=== PATIENT | female | born 1945 | race Caucasian/White ===

== ENCOUNTER → 2017-09-08 12:16 | Outpatient (CLI) | payer MEDICARE, SELFPAY ==
--- NOTE | 2017-09-08 12:19 | HPBI_ITS ---
MAMMOGRAPHY - BILATERAL SCREENING REASON FOR EXAM: Female, 72 years old. Routine annual screening examination. PERTINENT HISTORY: Non-contributory. Prior left breast biopsies. TECHNIQUE: Digital bilateral breast freeman (3D mammographic acquisition) in the CC and MLO projections. 2-D mediolateral oblique (MLO) and craniocaudad (CC) views of both breasts were obtained. CAD: Full Field Digital Mammography with Computer Added Detection was performed. COMPARISON: Comparison is made with prior study dated February 24, 2016 and February 01, 2014. FINDINGS: Breast Composition: There are scattered areas of fibroglandular density. There are no dominant masses or suspicious calcifications. Stable prominent venous structures in the left breast. Stable benign-appearing bilateral axillary lymph nodes. No other significant abnormalities are identified. There has been no significant change since the prior study. HPBI/SCREENING MAMM (CAD), BILAT IMPRESSION: Stable bilateral screening mammogram. Yearly follow-up mammogram recommended. (A) ASSESSMENT CATEGORY: BIRADS Category 2: Benign. A letter regarding these results will be sent to the patient by the facility within 30 days. Approximately 10% of breast cancers are not detected by mammography. A normal mammogram should not delay biopsy of a clinically suspicious abnormality. [id number] Electronically Signed: Job Hernández MD at 10:56 EST Tel [phone], Service support ,
== END ==
PROVIDERS: Family Provider Family Medicine; PCP Family Medicine; Visit Provider Family Medicine
DX: Z12.31 Encounter for screening mammogram for malignant neoplasm of breast (principal)
CPT/HCPCS: 77063; 77067

== ENCOUNTER 2017-10-28 11:01 | Emergency (ER) | payer MEDICARE, SELFPAY ==
[2017-10-28 11:03] VITALS: BP 152/70; PULSE 86; RESP 20; TEMP 36.6; O2SAT 100; BMI 34.7
--- NOTE | 2017-10-28 11:29 | ED.VISSUMM ---
- ER Visit Summary Date of Service: 10/28/17 Chief Complaint: Abdominal pain History of Present Illness: The patient is a 72 F with abdominal pain. Symptoms started about a week ago. Pain is intermittent and knifelike. She saw her PCP who referred her to the emergency department today. She has a history of appendectomy and hysterectomy. Never had a colonoscopy. No fevers. No change in bowel movements. She did have some nausea and vomiting. She thought this was secondary to severe pain. She is on Eliquis and aspirin and has a history of DVT and PE. Physical Examination: Afebrile and vital signs unremarkable. Abdomen is tender in the left lower quadrant. No guarding or rebound. No distention. Heart and lungs unremarkable. Back nontender. Skin appears normal. Test Results: We will check labs, urinalysis, and CT. Emergency Department Course and Treatment: Patient declined pain medicine. Will treat with fluids while awaiting results. CBB normal. CMP unremarkable. Lipase normal. Urinalysis unremarkable. CT showed fatty liver and signs of diverticulitis without abscess or perforation. Patient received Leedey, Bernadettero, Flagmegha here. I believe she is appropriate for outpatient care. Treatment Plan: As above Disposition: Discharged Impression: 1. Diverticulitis This note was generated with [employer] dictation software. It may contain incorrect words, spelling, and punctuation that were not noted in review of the chart prior to signing ED Disposition - Plan for ED Patient: Chief Complaint: Abd Pain Referrals: Sin Frost MD [Primary Care Provider] -
--- NOTE | 2017-10-28 11:32 | CT_ITS ---
STUDY: CT ABDOMEN AND PELVIS WITH CONTRAST REASON FOR EXAM: Female, 72 years old. 4 day history of left lower quadrant pain. RADIATION DOSAGE (If Supplied By Facility): CTDIvol = ( 18.05 ) mGy, DLP = ( 1037.75 ) mGycm TECHNIQUE: Transaxial images were obtained from the dome of the diaphragm to the symphysis pubis without oral contrast. 100 ml of Isovue 300 contrast was administered. Sagittal and coronal images were reconstructed. Individualized dose optimization techniques were used for this CT. COMPARISON: None. FINDINGS: Mild degree of increased markings at the lung bases suggestive of either linear atelectasis and/or mild degree of linear scarring at the bases. The visualized portions of the heart are within normal limits. There is decreased attenuation of the liver consistent with steatosis. Normal gallbladder and extrahepatic biliary system. Normal spleen. Normal pancreas. Normal bilateral adrenal glands. There is a 1.9 cm x 2 cm cyst in the mid lateral aspect of the right kidney. Fullness of the right renal pelvis and right ureter although no obstructive uropathy is seen at this time. There is a 3.1 cm x 3.4 cm cyst in the upper lateral portion of the left kidney. Normal visualized stomach. Normal small intestine. There is diverticulosis, with thickening of the colon wall, and pericolonic inflammation changes consistent with acute diverticulitis. No abnormal abscess or fluid collection is seen. There is non-visualization of the appendix. There is atherosclerotic atherosclerotic calcification of the abdominal aorta, without a demonstrated aneurysm. Normal inferior vena cava. There is borderline retroperitoneal lymphadenopathy with enlarged nodes no greater than 10mm in the short axis diameter. Normal urinary bladder. There is absence of the uterus consistent with a prior hysterectomy. There is a small umbilical hernia containing fat. Small bilateral benign-appearing inguinal lymph nodes. There are mild degenerative changes of the visualized lumbar spine. CT/Abdomen/Pelvis W IV Cont ONLY IMPRESSION: Fatty infiltration of the liver. Findings incomplete or noncomplicated acute sigmoid diverticulitis. Electronically Signed: Job Hernández MD at 13:22 EDT Tel [phone], Service support ,
[2017-10-28] MEDS: 0.9% Normal Saline 1,000 ML 1000 ML IV (12:09)
[2017-10-28 12:18] LABS: Absolute Lymphocyte Count 1.29 X10^3/ul (0.83-4.51); Absolute Neutrophil Count 5.9 X10^3/uL (2.0-7.7); Basophil# 0.02 X10^3/uL; Basophil% 0.3 % (0-1); Hematocrit 38.9 % (37-47); Hemoglobin 12.8 g/dl (12.0-15.0); Lymphocyte # 1.29 X10^3/ul (4.0); Lymphocyte % 16.4 % (19-41); Mean Corp Hgb Conc 32.9 g/gl (32-36); Mean Corpuscular Hgb 28.8 pg (27.0-32.0); Mean Corpuscular Volume 87.4 fL (81-99); Mean Platelet Vol. 10.8 fl (6.2-12.0); Monocyte% 8.9 % (0-10); Neutrophil # 5.85 X10^3/uL (2.7-7.7); Neutrophil % 74.3 % (47-70); Platelet Count 163 K/mm3 (150-450); Red Blood Count 4.45 M/mm3 (4.2-5.4); White Blood Count 7.9 K/mm3 (4.4-11.0)
[2017-10-28 12:23] LABS: POSITIVE COUNT NO; POSITIVE DIFFERENTIAL NO; POSITIVE MORPHOLOGY NO
[2017-10-28 12:27] LABS: ALB/GLOB Ratio 1.2 RATIO (0.9-2.4); AST(SGOT) 12 U/L (15-37); Alanine Aminotransfer ALT/SGPT 19 U/L (13-56); Albumin, Serum 3.6 g/dL (3.2-5.0); Alkaline Phosphatase 87 U/L (45-117); Anion Gap 6 (5-15); BUN 11 mg/dL (7-18); BUN/Creat Ratio 16.8 RATIO (10-20); Calcium,Total 8.2 mg/dL (8.5-10.1); Chloride 107 mmol/L (98-107); Creatinine, Serum 0.66 mg/dL (0.55-1.02); EST Glomerular Filtration Rate 95 mL/min (>60); Est Glom Filt Rate - Afr Amer 115 mL/min (>60); Globulin 3.1 g/dL (2.2-4.2); Glucose 115 mg/dL (74-106); Lipase 74 U/L (73-393); Potassium 3.7 mmol/L (3.5-5.1); Protein, Total 6.7 g/dL (6.4-8.2); Sodium Level 139 mmol/L (136-145)
[2017-10-28 13:07] LABS: Bacteria 0 SEEN /hpf (None Seen); Mucous, Urine 0 SEEN /hpf (<or=2+); Red Blood Cells-Urine 0 SEEN /hpf (0-5); White Blood Cells 0 SEEN /hpf (0-5)
[2017-10-28 13:13] LABS: Color, Urine Yellow (Yellow); Glucose, Dipstick Normal (Normal); Ketone-Dipstick Negative (Negative); Leukocyte Esterase-Dipstick Negative /ul (Negative); Nitrite-Dipstick Negative (Negative); Occult Blood-Urine Negative /ul (Negative); Protein-Dipstick Negative (Negative); Specific Gravity, Urine 1.005 (1.002-1.030); Urine Bilirubin Dipstick Negative (Negative); Urine Clarity Clear (Clear); Urine Urobilinogen Normal (Normal)
[2017-10-28 13:22] LABS: Squamous Epithelial Cells - UA 0-5 SEEN /hpf (5-10)
[2017-10-28 13:54] VITALS: BP 129/115; PULSE 81; RESP 18; O2SAT 92
[2017-10-28] MEDS: HYDROcodone Bitartrate/Apap 5/325 Tablet PO (14:30)
[2017-10-28 15:41] VITALS: BP 119/75; PULSE 81; RESP 16; O2SAT 91
--- NOTE | 2017-10-28 15:44 | ED.DEP ---
ED Disposition - Plan for ED Patient: Chief Complaint: Abd Pain Instructions: ED Diverticulitis Prescriptions: Hydrocodone Bitart/Apap 5-325 [Prince 5MG-325MG] 1 tab PO Q6H PRN PRN 3 Days #12 tab PRN Reason: Pain Metronidazole [Flagyl] 500 mg PO Q8H #30 tab Ciprofloxacin [Cipro] 500 mg PO BID #20 tab Referrals: Sin Frost MD [Primary Care Provider] -
== END 2017-10-28 16:07 | disposition home or self-care (01) ==
PROVIDERS: Emergency Provider Emergency Medicine; Family Provider Family Medicine; PCP Family Medicine
DX: K57.32 Diverticulitis of large intestine without perforation or abscess without bleeding (principal); K76.0 Fatty (change of) liver, not elsewhere classified; K21.9 Gastro-esophageal reflux disease without esophagitis; I10 Essential (primary) hypertension; E03.9 Hypothyroidism, unspecified; Z86.718 Personal history of other venous thrombosis and embolism; Z86.711 Personal history of pulmonary embolism; Z90.89 Acquired absence of other organs; Z90.710 Acquired absence of both cervix and uterus; Z87.891 Personal history of nicotine dependence; Z79.01 Long term (current) use of anticoagulants; Z79.82 Long term (current) use of aspirin; Z79.899 Other long term (current) drug therapy
CPT/HCPCS: 74177; 80053; 81001; 83690; 85025; 96361; 96365; 96367; 99284; J7030; Q9967; A4216; J0744

== ENCOUNTER 2017-12-28 06:56 | Day surgery (SDC) | payer MEDICARE, SELFPAY ==
[2017-12-28] VITALS (7 sets, daily range): BP systolic 86–125; BP diastolic 60–98; PULSE 60–79; RESP 16; TEMP 36.2–36.5; O2SAT 94–100; BMI 34.1
--- NOTE | 2017-12-28 11:05 | PCM.OPRPT ---
Report of Operation Date of Procedure: 12/28/17 Pre-Operative Diagnosis: Screening for colon cancer, history of diverticulitis Post-Operative Diagnosis: Mild sigmoid diverticulosis Surgery/Procedure Performed:: Colonoscopy Type of Anesthesia:: MAC Anesthesiologist: Uche Mo Specimen's removed: None Estimated Blood Loss (mL): None Description of Procedure: Procedure: Colonoscopy After reviewing the risks benefits, the patient was deemed in satisfactory condition to undergo procedure. After obtaining informed consent, the scope was passed under direct visualization. Throughout the procedure, the patient's blood pressure pulse and position saturations were monitored continuously anesthesia. The colonoscope was introduced through the anus and advanced to the cecum, identified by the appendiceal orifice, IC valve and transillumination. The colonoscopy was performed without difficulty. The patient tolerated procedure well. Quality of bowel prep was good. Findings: The perianal and digital rectal exam were normal. Mild sigmoid diverticulosis was noted. Otherwise the colon (entire examined portion) appeared normal. Retroflexed view of the distal rectum and anal verge was normal and showed no anal or rectal abnormalities Impression: 1. Mild sigmoid diverticulosis 2. The distal rectal and anal verge were normal on retroflexed view. Recommendations: high-fiber diet Repeat colonoscopy in 10 years for screening purposes depending on overall health at that time. - Complications none
== END 2017-12-28 09:34 | disposition home or self-care (01) ==
LOC: EN 06:57 → AC 06:58
PROVIDERS: Family Provider Family Medicine; PCP Family Medicine; Visit Provider Surgery
PROC: 0DJD8ZZ Inspection of Lower Intestinal Tract, Via Natural or Artificial Opening Endoscopic (ICD-10-PCS; CPT 45378; principal; 2017-12-28 07:55)
DX: Z12.11 Encounter for screening for malignant neoplasm of colon (principal); K57.30 Diverticulosis of large intestine without perforation or abscess without bleeding; E55.9 Vitamin D deficiency, unspecified; K21.9 Gastro-esophageal reflux disease without esophagitis; J44.9 Chronic obstructive pulmonary disease, unspecified; I10 Essential (primary) hypertension; E03.9 Hypothyroidism, unspecified; Z87.891 Personal history of nicotine dependence; Z86.711 Personal history of pulmonary embolism; Z87.19 Personal history of other diseases of the digestive system; Z86.718 Personal history of other venous thrombosis and embolism
CPT/HCPCS: G0121; J7120

== ENCOUNTER → 2018-03-14 16:29 | Outpatient (CLI) | payer MEDICARE, SELFPAY ==
--- NOTE | 2018-03-14 | LES_PTH ---
PATIENT: ARIEL ALLEN LOC: [facility] U#:[id number] AGE/SX: 79/F ROOM: RE03/14/[address]: Dr. Melissa aMya MD : 1945 BED: DIS: SPEC #: [id number] RECD: 03/15/18 13:18 STATUS: LEONARD ADRIANE #: [id number] CHARAN: 03/14/18 00:[address]: Melissa Maya DEPT: SURGICAL PATHOLOGY RECD BY: Nic Hill ENTERED: 03/15/18 13:18 SP TYPE: Lesion OTHR DR: Dr. Sin Frost MD Tissues: A - Skin of chest B - Skin of chest C - Skin of chest D - Skin of back, NOS Procedures: Surgery Specimen Level IV HEADER OPERATION: Punch biopsy chest lesion; punch biopsy upper back skin lesion left PRE-OP DIAGNOSIS: Skin lesion on chest; skin lesion upper back left TISSUE SUBMITTED: A - Skin lesion chest ? 9 cm from sternal notch at 6 o?clock, 5 mm punch, B ? 6 cm at 4 o?clock from sternal notch, 4 mm punch, C ? 5 cm at 7 o?clock from sternal notch, 4 mm punch, D - Upper back skin lesion left medial MICROSCOPIC DIAGNOSIS A. Skin lesion of chest at 6 o?clock, punch biopsy: Actinic keratosis with focal verrucal features with associated moderate dysplasia, inflamed, completely excised. B. Skin lesion of sternal notch at 4 o?clock, punch biopsy: Consistent with actinic keratosis. C. Skin lesion of sternal notch at 7 o?clock, punch biopsy: Actinic keratosis and solar elastosis. D. Skin lesion of upper medial back, punch biopsy: Actinic keratosis with moderate squamous atypia. AM:jones 03/16/18 COMMENT D. Dysplasia extends to one peripheral margin of excision. Complete excision of lesion is recommended for definitive calcification. Case has been reviewed in consultation with Dr. Salazar who concurs with the above diagnosis. IDC:SJ MICROSCOPIC DESCRIPTION Slides are reviewed. GROSS DESCRIPTION A - Received in fixative is one container labeled with the patient's name and designated skin lesion from chest 6 o'clock. The specimen consists of a 5 mm punch biopsy with a maximal length of 0.5 cm. The specimen is inked and totally submitted in one cassette for postfixation sectioning. B - Received in fixative is one container labeled with the patient's name and designated chest lesion 4 o'clock. The specimen consists of an irregular fragment of hauser-yellow soft tissue measuring 0.5 x 0.2 x 0.2 cm. The specimen is totally submitted in one cassette. C - Received in fixative is one container labeled with the patient's name and designated chest lesion 7 o'clock. The specimen consists of an irregular fragment of light hauser-yellow soft tissue measuring 0.3 x 0.2 cm. The specimen is totally submitted in one cassette. D - Received in fixative is one container labeled with the patient's name and designated left upper back punch biopsy. The specimen consists of a 5 mm punch biopsy with a maximal length of 0.6 cm. The specimen is inked and totally submitted in one cassette for postfixation sectioning. / AM:jones 03/15/18 TC:? CPT: 25411 x4
== END ==
PROVIDERS: Family Provider Family Medicine; PCP Family Medicine; Visit Provider Surgery
DX: L98.9 Disorder of the skin and subcutaneous tissue, unspecified (principal)
CPT/HCPCS: 88305

== ENCOUNTER 2018-03-24 06:25 | Day surgery (SDC) | payer MEDICARE, SELFPAY ==
--- NOTE | 2018-03-24 | LES_PTH ---
PATIENT: ARIEL ALLEN LOC: [facility] U#:[id number] AGE/SX: 72/F ROOM: RE03/24/[address]: Dr. Melissa Maya MD : 1945 BED: DIS: 03/24/2018 SPEC #: [id number] RECD: 03/24/18 11:52 STATUS: LEONARD ADRIANE #: [id number] CHARAN: 03/24/18 00:[address]: Melissa Maya DEPT: SURGICAL PATHOLOGY RECD BY: Nic Hill ENTERED: 03/24/18 11:52 SP TYPE: Lesion OTHR DR: Dr. Sin Frost MD Tissues: Skin of back, NOS Procedures: Surgery Specimen Level IV HEADER OPERATION: Excision lesion left upper back PRE-OP DIAGNOSIS: Lesion left upper back with atypia TISSUE SUBMITTED: Left upper back lesion with atypia, long suture ? lateral, short suture - superior MICROSCOPIC DIAGNOSIS Left upper back lesion with atypia, excisional biopsy: Actinic keratosis with moderate atypia. See comment. SJ:rg 03/27/18 COMMENT The peripheral margin is free of moderate atypia. A few cluster of atypical squamous cells are noted in the superficial dermis, favor pseudoinvasion, secondary to previous procedure. Please make reference to previous specimen ([id number]) skin lesion of chest at 6 o?clock, punch biopsy with diagnosis of actinic keratosis with focal verrucal features with associated moderate dysplasia, inflamed, skin lesion of sternal notch at 4 o?clock, punch biopsy with diagnosis of consistent with actinic keratosis and skin lesion of sternal notch at 7 o?clock, punch biopsy with diagnosis of actinic keratosis and solar elastosis and skin lesion of left upper medial back, punch biopsy with diagnosis of actinic keratosis and moderate squamous atypia. Case has been reviewed in consultation with Dr. Harris who concurs with the above diagnosis. IDC:AM MICROSCOPIC DESCRIPTION Slides are reviewed. GROSS DESCRIPTION Received in fixative is one container labeled with the patient's name and designated lesion left upper back with atypia, long suture - lateral, short suture - superior. The specimen consists of a hauser-white skin ellipse measuring 5 x 2.7 cm and up to 0.5 cm in thickness. The specimen is oriented as long suture - lateral, short suture ? superior. The specimen is inked as follows: superior margin ? black, inferior margin ? blue, medial tip ? green, lateral tip ? yellow. The specimen is serially sectioned and submitted entirely in five cassettes. / SJ:jones 03/24/18 TC:5 CPT: 84633
[2018-03-24 07:17] VITALS: BP 112/70; PULSE 73; RESP 16; TEMP 36.5; O2SAT 99; BMI 34.3
[2018-03-24] MEDS: Cefazolin 2 GM in 0.9% Normal Saline 100 ML IV (07:50)
[2018-03-24] MEDS: Bupivacaine Mpf 0.5% 30 ML VIAL (08:08)
--- NOTE | 2018-03-24 08:34 | PCM.OPRPT ---
Report of Operation Date of Procedure: 03/24/18 Pre-Operative Diagnosis: Left upper medial back actinic keratosis moderate squamous atypia Post-Operative Diagnosis: Same Surgery/Procedure Performed:: Excision of left upper medial back skin lesion with atypia plant operations coordinator: Leodan Kraft Type of Anesthesia:: Local MAC Anesthesiologist: Smith Aquino Special Medications: Ancef 2 g IV ?1 Specimen's removed: Left upper back skin lesion with atypia Estimated Blood Loss (mL): <10 cc Fluids Replaced: 400 cc Description of Procedure: Patient was brought to the operating room placed in right lateral decubitus position. Prior to surgery patient's procedure, positioning, special equipment was verified. A margin of about 6 mm was marked around the 2 x 0.5 cm lesion on her left upper medial back. This area is prepped draped in usual sterile fashion with Betadine due to her chlorhexidine allergy. Incision was made with 15 blade scalpel. The lesion was removed and oriented for pathology. The edges were undermined to allow for a tension-free incision. Incision was closed with 3-0 Vicryl subdermal interrupted sutures. In the middle the placement of 2 vertical mattress 3-0 nylon sutures. Steri-Strips and OpSite were placed. Patient tolerated procedure well. She was taken to the postanesthesia care unit in stable condition. - Complications None
[2018-03-24 08:41] VITALS: BP 107/76; BP 112/70; PULSE 77; RESP 18; TEMP 36.3; O2SAT 94
--- NOTE | 2018-03-24 08:41 | PCM.DC.GS ---
Discharge Diet: No Restrictions Call your doctor if your incision/area has: Continuous Slow Oozing, Sudden Increased Bleeding, Increased Pain/ Swelling, Increased Redness, Foul Smelling Discharge, Swelling at the incision site Call your doctor if you observe: Fever of 101 or Higher Remove Dressing in (days):: 2 Allergies/Adverse Reactions: Allergies chlorhexidine Allergy (Verified 03/23/18 08:32) Itching codeine Allergy (Verified 03/24/18 06:43) Itching adhesive tape Allergy (Mild, Uncoded 03/23/18 08:32) Unknown Medications to take at Discharge Carvedilol [Coreg (Beta Brad)] 3.125 mg PO BID 10/27/13 Thyroid [[place] Thyroid] 90 mg PO DAILY 10/27/13 Ergocalciferol [Vitamin D] 50,000 unit PO QWEEK 11/02/13 Minocycline HCl [Minocin] 50 mg PO DAILY 10/28/17 omeprazole 40 mg capsule,delayed release 40 mg PO QDAY PRN 12/01/17 Ascorbic Acid [Vitamin C] 500 mg PO DAILY 12/23/17 Loratadine 10 mg PO DAILY 12/23/17 Vitamin B Complex 1 ea PO DAILY 12/23/17 Vitamin E 400 unit PO DAILY 12/23/17 Primary Care Physician: Sin Frost MD [Primary Care Provider] - Test Results: Test results from this visit will be discussed in further detail at your follow-up appointment, if applicable. Please Follow Up With: Melissa Maya MD - After 5:00 or on the weekends call [phone] with any concerns When: Call the office for a follow-up appointment in 7-10 days for suture removal Proposed Discharge Date: 03/24/18
[2018-03-24 08:45] VITALS: BP 112/70; BP 117/71; PULSE 77; RESP 18; O2SAT 92
[2018-03-24 08:50] VITALS: BP 112/70; BP 112/74; PULSE 71; RESP 18; O2SAT 92
[2018-03-24 08:55] VITALS: BP 112/69; BP 112/70; RESP 18; TEMP 36.3; O2SAT 94
[2018-03-24 09:34] VITALS: BP 112/70
== END 2018-03-24 09:36 | disposition home or self-care (01) ==
LOC: SDC 06:27 → AC 06:30
PROVIDERS: Family Provider Family Medicine; PCP Family Medicine; Visit Provider Surgery
PROC: (CPT 11403; principal; 2018-03-24 07:50)
DX: L57.0 Actinic keratosis (principal); K21.9 Gastro-esophageal reflux disease without esophagitis; E55.9 Vitamin D deficiency, unspecified; E03.9 Hypothyroidism, unspecified; I10 Essential (primary) hypertension; E05.00 Thyrotoxicosis with diffuse goiter without thyrotoxic crisis or storm; Z86.718 Personal history of other venous thrombosis and embolism; Z86.711 Personal history of pulmonary embolism; Z87.891 Personal history of nicotine dependence; Z79.899 Other long term (current) drug therapy
CPT/HCPCS: 11403; 88305; J7120

== ENCOUNTER 2018-07-26 08:57 | Emergency (ER) | payer MEDICARE, SELFPAY ==
[2018-07-26 08:58] VITALS: BP 156/94; PULSE 75; RESP 16; TEMP 36.1; O2SAT 95; BMI 35.6
[2018-07-26] MEDS: morphine 8 MG/ML Syringe IM (09:26)
--- NOTE | 2018-07-26 09:33 | RAD_ITS ---
STUDY: X-RAY - RIGHT SHOULDER REASON FOR EXAM: Female, 72 years old. Pain and deformity following a fall. TECHNIQUE: 2 view(s) of the shoulder. COMPARISON: None. FINDINGS: There is mild degenerative arthrosis of the glenohumeral articulation. Normal acromioclavicular joint. Normal acromion. Nondisplaced impacted transverse fracture of the proximal surgical neck of the humerus with extension into the greater tuberosity. Soft tissue swelling. Normal visualized pulmonary apex. RAD/Shoulder min 2 Views IMPRESSION: Impacted transverse fracture of the surgical neck of the humerus with involvement of the greater tuberosity. Electronically Signed: Job Hernández MD at 9:56 EST Tel [phone], Service support ,
--- NOTE | 2018-07-26 10:08 | ED.DCSUM_ITS ---
- ER Visit Summary Date of Service: 07/26/18 Chief Complaint: Fall with shoulder injury History of Present Illness: The patient is a 72 F presenting for evaluation secondary to a fall and shoulder injury. Patient reports that she was descending some stairs, she suffered a mechanical fall where she tried to catch herself with the railing her right hand but her arm and shoulder jerked backwards. She had immediate onset of severe pain in the right arm and shoulder. She denies falling, hitting her head, loss of consciousness, numbness or weakness. She denies any prior injuries. Review of systems otherwise negative. Physical Examination: Primary survey: Airway is patent, breath sounds equal bilateral, central peripheral pulses 2+ and symmetric, GCS 15 out of 15. Vitals within normal limits. Secondary survey: General: Well-nourished well-developed no acute distress Head: Normocephalic atraumatic Eyes: PERRLA, EOMI ENT: TMs clear no hemotympanum no drainage Neck: Nontender full range of motion, no step-offs noted Heart: Regular rate and rhythm no murmurs Lungs: Respirations nondistressed, lung sounds clear to auscultation bilaterally, chest nontender, normal chest excursion bilaterally Abdomen: Soft nontender nondistended normal bowel sounds no palpable abdominal masses Back: Nontender no step-offs noted Extremities: Deformity noted at the right shoulder with limited range of motion secondary to pain. Normal range of motion of the elbow wrist and hand distally with normal distal sensation and pulses. Skin: Normal color, abrasion noted on the right hand Neuro: Alert and oriented ?4, GCS 15 out of 15, no lateralizing neurological deficits. Test Results: Right shoulder x-ray shows a proximal humerus fracture Emergency Department Course and Treatment: Patient presented secondary to fall. Patient's pain was treated with morphine. X-rays demonstrated evidence of a fracture. Patient was placed in a sling and swath. Patient will be started on a course of Percocet as an outpatient. She will be given referral to orthopedics for follow-up. She requested follow-up with Dr. Garcia. Disposition: Discharge Impression: 1. Closed proximal right humerus fracture This note was generated with [employer] software. It may contain incorrect words, spelling, and punctuation that were not noted in review of the chart prior to signing ED Disposition - Plan for ED Patient: Disposition: Home or Assisted Living Chief Complaint: Upper Extremity Injury Diagnosis: Proximal humerus fracture Instructions: ED Fx Shoulder Prescriptions: Oxycodone HCl/Acetaminophen [Percocet 5/325] 1 tab PO Q6H PRN PRN 5 Days #20 tab PRN Reason: Pain Referrals: Ender Garcia MD [STAFF PHYSICIAN] - As soon as possible
[2018-07-26] MEDS: HYDROcodone Bitartrate/Apap 5/325 Tablet PO (10:33)
[2018-07-26 10:41] VITALS: PULSE 79; RESP 16; O2SAT 95
== END 2018-07-26 10:43 | disposition home or self-care (01) ==
PROVIDERS: Emergency Provider Emergency Medicine; Family Provider Family Medicine; PCP Family Medicine
DX: S42.201A Unspecified fracture of upper end of right humerus, initial encounter for closed fracture (principal); W10.9XXA Fall (on) (from) unspecified stairs and steps, initial encounter; Y93.9 Activity, unspecified; Y92.89 Other specified places as the place of occurrence of the external cause; Y99.9 Unspecified external cause status
CPT/HCPCS: 73030; 99283

== ENCOUNTER → 2019-01-30 | Outpatient (CLI) | payer MEDICARE, SELFPAY ==
--- NOTE | 2019-01-30 14:52 | BI_ITS ---
MAMMOGRAPHY - BILATERAL SCREENING REASON FOR EXAM: Female, 73 years old. Routine annual screening examination. PERTINENT HISTORY: Remote left breast biopsies. TECHNIQUE: Digital bilateral breast mariangel (3D mammographic acquisition) in the CC and MLO projections. 2-D mediolateral oblique (MLO) and craniocaudad (CC) views of both breasts were obtained. CAD: Full Field Digital Mammography with Computer Added Detection was performed. COMPARISON: Comparison is made with prior study dated September 08, 2017 and February 24, 2016. FINDINGS: Breast Composition: There are scattered areas of fibroglandular density. There are no dominant masses or suspicious calcifications. Stable appearance of the prominent venous structures in the left breast. Stable benign appearing axillary lymph nodes. No other significant abnormalities are identified. There has been no significant change since the prior study. BI/SCREEN MAMM (CAD) W/MARIANGEL BILAT IMPRESSION: Stable bilateral screening mammogram. Yearly follow-up mammogram recommended. (A) ASSESSMENT CATEGORY: BIRADS Category 2: Benign. A letter regarding these results will be sent to the patient by the facility within 30 days. Approximately 10% of breast cancers are not detected by mammography. A normal mammogram should not delay biopsy of a clinically suspicious abnormality. [id number] Electronically Signed: Job Hernández, at 8:23 EDT , Service support ,
--- NOTE | 2019-01-30 14:59 | BD_ITS ---
STUDY: DUAL ENERGY X-RAY ABSORPTIOMETRY / DXA REASON FOR EXAM: Female, 73 years old. The patient is postmenopausal. Loss of height. TECHNIQUE: Bone Mineral Density (BMD) measurements of lumbar spine and bilateral hips were obtained. COMPARISON: Comparison is made with prior study dated February 24, 2016. FINDINGS: Lumbar Spine (L1-L4): g/cm2 (0.904) / T-score (-2.3) / Z-score (-0.6) Findings are suggestive of osteopenia with a high fracture risk. Left Femur Total: g/cm2 (0.815) / T-score (-1.5) / Z-score (0.0) Left Femoral Neck: g/cm2 (0.690) / T-score (-2.5) / Z-score (-0.8) Right Femur Total: g/cm2 (0.847) / T-score (-1.3) / Z-score (0.3) Right Femoral Neck: g/cm2 (0.802) / T-score (-1.7) / Z-score (0.1) The T-Scores on the most recent prior examination were: Lumbar Spine (L1-L4): There has been worsening of bone density since the previous examination. Left Femur Total: which represents an improvement of 3.2%. Right Femur Total: which represents an improvement of 1%. BD/Dexa Bone Density Study IMPRESSION: The patient is considered osteopenic as outlined below according to World [place] Organization (WHO) criteria with a high fracture risk. There has been improvement of bone density since the previous examination. Reference Information: The T-score is the number of standard deviations above or below the standard which is normal for young adults at their peak bone mineral density. The World Health Organization (WHO) interprets the T-scores as follows: Above -1 Normal bone density Between -1 and -2.5 Osteopenia Equal to / or below -2.5 Osteoporosis As a practical clinical guideline, osteopenia may be graded as follows: Mild -1 through -1.5 Moderate -1.6 through -2.0 Severe -2.1 through -2.4 The Z-score is the number of standard deviations above or below age-matched controls. A Z-score of less than -1.5 would be considered abnormal. References: 1. NIH Osteoporosis and Related Bone Diseases http://www.osteo.org 2. International Society for Clinical Densitometry http://www.iscd.org 3. National Osteoporosis Foundation http://www.nof.org Electronically Signed: Job Hernández, at 14:00 EDT , Service support ,
== END | disposition home or self-care (01) ==
LOC: OPBD 14:50
PROVIDERS: Family Provider Family Medicine; PCP Family Medicine; Referring Provider Family Medicine; Visit Provider Family Medicine
DX: M85.89 Other specified disorders of bone density and structure, multiple sites (principal); S42.301A Unspecified fracture of shaft of humerus, right arm, initial encounter for closed fracture; E55.9 Vitamin D deficiency, unspecified; Z12.31 Encounter for screening mammogram for malignant neoplasm of breast
CPT/HCPCS: 77063; 77067; 77080

== ENCOUNTER 2019-04-02 15:13 | Emergency (ER) | payer MEDICARE, SELFPAY ==
[2019-04-02 15:15] VITALS: BP 156/88; PULSE 84; RESP 16; TEMP 35.9; O2SAT 93; BMI 36.3
--- NOTE | 2019-04-02 15:43 | US_ITS ---
STUDY: ABDOMINAL ULTRASOUND - RIGHT UPPER QUADRANT REASON FOR VISIT: Female, 73 years old heartburn, epigastric pain TECHNIQUE: Ultrasound evaluation of the right upper quadrant was performed with real-time and static concepcion-scale imaging. TECHNICAL QUALITY: Adequate. COMPARISON: None. FINDINGS: Liver: The liver measures 17.6 cm. There is increased echogenicity consistent with fatty infiltration. The bile ducts are within normal limits. There is hepatic color flow. The direction of portal flow is hepatopetal. There is no demonstrated mass lesion. Gallbladder: Normal distended gallbladder. The gallbladder wall measures 2 mm. There is a negative sonographic Owen's sign. There is no pericholecystic fluid. There are no gallstones. Common Bile Duct (C.B.D.): The common bile duct measures 4 mm. Pancreas: Normal size of the head, body and tail of the pancreas. There is increased echogenicity of the pancreas. There is no demonstrated pancreatic mass or cyst. Right Kidney: Normal size of the right kidney. The right kidney measures 11.2 x 5.2 x 5.3 cm. Normal renal cortex. The right cortex measures 1.1 cm. There is a 2.1 cm simple cyst There is no right hydronephrosis. US/Gallbladder IMPRESSION: Fatty liver, no discrete lesion Nonspecific echogenic pancreas Simple right renal cyst Sonographically normal gallbladder Electronically Signed: Hussein Ramírez MD at 17:32 EDT , Service support ,
--- NOTE | 2019-04-02 15:45 | ED.VIS.GI ---
History of Present Illness Chief Complaint: Abd Pain Detail of Chief Complaint: Intermittent right upper quadrant/epigastrium x1 month Informant: Patient - Abdominal Pain/Flank Pain Onset: Weeks Context: Sudden Onset Timing: Intermittent Quality: Cramping Location: Epigastric, RUQ Current Severity: Moderate Maximum Severity: Severe Worsened by: Food Relieved by: Nothing. Not Relieved By: Antacids, Food, Remaining Still - Nausea/Vomiting/Emesis GI Symptom: Nausea, - - Initiated with abdominal pain Severity: Mild - Diarrhea/Melena/Hematochezia GI Symptom: Negative for: Diarrhea, Melena, Hematochezia Associated Symptoms: Negative for: Dysuria, Frequency, Hematuria, Urgency LMP: Not applicable post menopause Narrative: Patient is a 73-year-old woman who presents with epigastric right upper quadrant pain that is been intermittent for x1 month radiating to her right mid back. She states any food now makes the pain worse. She denies black or maroon stool. She denies vomiting. She denies respiratory symptoms. She denies fever, chills night sweats. Denies history of renal or ureteral lithiasis. She does have history of diverticulosis diverticulitis. CT of the abdomen and pelvis approximate 1 year ago did not reveal evidence of cholelithiasis. Patient denies history of trauma. Prior similar symptoms: Yes Recent Illness/Hospitalization: No - Past Medical History (1) Bilateral pulmonary embolism Status: Acute (2) DVT, bilateral lower limbs Status: Acute (3) Hx of diverticulitis of colon Status: Acute (4) Allergic rhinitis Status: Chronic (5) COPD (chronic obstructive pulmonary disease) Status: Chronic (6) HTN (hypertension) Status: Chronic (7) Hypothyroid Status: Chronic (8) Takotsubo cardiomyopathy Status: Chronic Past Medical History - Allergies and Home Meds Allergies/Adverse Reactions: Allergies chlorhexidine Allergy (Verified 04/02/19 15:15) Itching codeine Allergy (Verified 04/02/19 15:15) Itching oxycodone Adverse Reaction (Verified 04/02/19 15:15) Upset Stomach adhesive tape Allergy (Mild, Uncoded 04/02/19 15:15) Unknown Primary Care Physician: Sin Frost MD [Primary Care Provider] - Prior records reviewed: Yes - Reviewed CT report from approximately 1 year ago. Surgical History: adenoidectomy, total knee arthroplasty, - Lives: Alone Smoking Status: Former smoker Alcohol: None Drugs: None - Family History Maternal Family History: Family History (Last Reviewed 03/30/18 @ 15:21 by Makenzie Avery) Mother Asthma Cancer Brother Cancer Diabetes Sister Cancer Diabetes Father Thyroid disorder Family History: Reports: Cancer, Heart Disease Paternal Family History: Family History (Last Reviewed 03/30/18 @ 15:21 by Makenzie Avery) Mother Asthma Cancer Brother Cancer Diabetes Sister Cancer Diabetes Father Thyroid disorder Family History: Reports: Pulmonary Disease Sibling Family History: Family History (Last Reviewed 03/30/18 @ 15:21 by Makenzie Avery) Mother Asthma Cancer Brother Cancer Diabetes Sister Cancer Diabetes Father Thyroid disorder Family History: Reports: Diabetes, Heart Disease, Hypertension Review of Systems General: Denies: Chills, Fever, Malaise, Sweats, Weight loss Cardiovascular: Denies: Chest pain, Palpitations Respiratory: Denies: Dyspnea, Cough, Dyspnea on exertion Gastrointestinal: Reports: Abdominal pain, Nausea. Denies: Vomiting, Diarrhea, Constipation, Melena, Hematochezia, -, - Genitourinary: Denies: Dysuria, Hematuria, Frequency Musculoskeletal: Denies: Myalgias, Arthralgias, Neck pain, Back pain, Swelling, Extremity Pain, -, - Skin: Denies: Rash, Wounds Neurological: Denies: Headache, Weakness, Parasthesia, Numbness, -, - Endocrine: Denies: Polyuria, Polydipsia, Cold intolerance Hematologic: Denies: Easy bruising, Easy bleeding Allergy: Denies: Uticaria, Swelling of the mouth Physical Exam Vital Signs/Narrative: Vital Signs Temp Pulse Resp BP Pulse Ox 04/02/19 15:15 96.7 F L 84 16 156/88 H 93 Inital Vital Signs reviewed: Yes General: Well nourished, Well developed, Obese, Acute Distress Head: Normocephalic, Atraumatic Eyes: Perrl, EOMI ENT: Moist mucous membranes, No rhinorrhea Neck: Supple, Nontender Cardiovascular: Regular rate, Regular rhythm, No murmurs Respiratory: No distress, CTA bilaterally, Chest nontender Abdomen: Soft, Nondistended, No masses, Tender, Guarding, Hypoactive bowel sounds, Owen's sign. Negative for: Normal bowel sounds, Rebound tenderness, Hepatomegaly, Splenomegaly, Pulsatile mass, Ventral hernia, Umbilical hernia Rectal: Deferred Back: Nontender, Normal Inspection. Negative for: CVA tenderness Extremities: Nontender, No edema Skin: Normal color, No rash, No Trauma. Negative for: Cyanosis, Diaphoresis, Jaundice Neurological: Alert, Oriented x3, Cranial nerves II-XII grossly intact, Normal Strength, Normal Sensation Psychological: Normal affect, Normal Mood Diagnostic/Tx/Re-eval Impressions Gallbladder Ultrasound 04/02/19 15:43 IMPRESSION: Fatty liver, no discrete lesion Nonspecific echogenic pancreas Simple right renal cyst Sonographically normal gallbladder Electronically Signed: Hussein Ramírez MD at 17:32 EDT , Service support , 04/02/19 15:43 Gallbladder [US] Stat Laboratory Results 04/02/19 04/02/19 16:05 16:05 WBC 5.5 RBC 4.60 Hgb 13.1 Hct 39.7 MCV 86.3 MCH 28.5 MCHC 33.0 RDW Std Deviation 42.6 RDW Coeff of Dany 13.7 Plt Count 152 MPV 10.8 Immature Gran % (Auto) 0.400 Neut % (Auto) 55.8 Lymph % (Auto) 32.2 [place] % (Auto) 10.5 H Eos % (Auto) 0.7 Baso % (Auto) 0.4 Absolute Neuts (auto) 3.1 Absolute Lymphs (auto) 1.78 Nucleated RBC % 0 Sodium 140 Potassium 3.8 Chloride 108 H Carbon Dioxide 27.0 Anion Gap 5 BUN 14 Creatinine 0.65 Estim Creat Clear Calc 40.81 Est GFR (MDRD) Af Amer 116 Est GFR (MDRD) Non-Af 96 BUN/Creatinine Ratio 21.7 H Glucose 108 H Calcium 9.0 Total Bilirubin 0.30 AST 9 L ALT 21 Alkaline Phosphatase 101 Total Protein 6.6 Albumin 3.3 Globulin 3.3 Albumin/Globulin Ratio 1.0 Lipase 179 BC, conference of metabolic panel and lipase are normal. Ultrasound of the gallbladder was normal. There is a nonspecific echogenic appearance of the pancreas. Of note she had a CT of the abdomen approximately 8 months ago which was unremarkable. States the GI cocktail did help. She is presently on omeprazole. We will add Carafate. She is been instructed to follow-up with Dr. Florian for GI referral. - Medical Decision Making With right upper quadrant abdominal pain and positive clinical Owen sign need to rule a biliary disease versus GI i.e. reflux, esophagitis, gastritis versus peptic ulcer disease and need to evaluate pancreatitis. Appropriate blood work was ordered. Ultrasound was ordered since she last ate at 0830. Patient was offered antiemetic and pain medicine. She declined. ED Disposition - Plan for ED Patient: Disposition: Home or Assisted Living Diagnosis: Epigastric abdominal pain Instructions: EPIGASTRIC PAIN (Uncertain cause) Prescriptions: Sucralfate [Carafate] 1 gm PO 4X/DAY #120 tab Prescription Printed Referrals: Sin Frost MD [Primary Care Provider] - 5-7 Days
[2019-04-02 16:16] LABS: Absolute Lymphocyte Count 1.78 X10^3/uL (0.83-4.51); Absolute Neutrophil Count 3.1 X10^3/uL (2.0-7.7); Basophil# 0.02 X10^3/uL; Basophil% 0.4 % (0-1); Eosinophil# 0.04 X10^3/uL; Eosinophils% 0.7 % (0-5); Hematocrit 39.7 % (37-47); Hemoglobin 13.1 g/dL (12.0-15.0); Lymphocyte # 1.78 X10^3/ul (4.0); Lymphocyte % 32.2 % (19-41); Mean Corpuscular Hgb 28.5 pg (27.0-32.0); Mean Corpuscular Volume 86.3 fL (81-99); Mean Platelet Vol. 10.8 fl (6.2-12.0); Monocyte# 0.58 X10^3/uL; Monocyte% 10.5 % (0-10); NRBC Flagged by Analyzer 0 % (0-5); Neutrophil # 3.09 X10^3/uL (2.7-7.7); Neutrophil % 55.8 % (47-70); Platelet Count 152 K/mm3 (150-450); RBC Distribution Width CV 13.7 % (11.6-14.6); RBC Distribution Width SD 42.6 fl (35.1-43.9); White Blood Count 5.5 K/mm3 (4.4-11.0)
[2019-04-02 16:32] LABS: AST(SGOT) 9 U/L (15-37); Alanine Aminotransfer ALT/SGPT 21 U/L (13-56); Albumin, Serum 3.3 g/dL (3.2-5.0); Alkaline Phosphatase 101 U/L (45-117); Anion Gap 5 (5-15); BUN 14 mg/dL (7-18); BUN/Creat Ratio 21.7 RATIO (10-20); Chloride 108 mmol/L (98-107); Creatinine, Serum 0.65 mg/dL (0.55-1.02); EST Glomerular Filtration Rate 96 mL/min (>60); Est Glom Filt Rate - Afr Amer 116 mL/min (>60); Estimated Creatinine Clearance 40.81 ml/min; Globulin 3.3 g/dL (2.2-4.2); Glucose 108 mg/dL (74-106); Lipase 179 U/L (73-393); Potassium 3.8 mmol/L (3.5-5.1); Protein, Total 6.6 g/dL (6.4-8.2); Sodium Level 140 mmol/L (136-145)
[2019-04-02] MEDS: Mag Hydrox/Al Hydrox/Simeth 30 ML UDC PO (17:49)
[2019-04-02 18:32] VITALS: BP 131/93; PULSE 76; RESP 18; O2SAT 93
== END 2019-04-02 18:33 | disposition home or self-care (01) ==
PROVIDERS: Emergency Provider Emergency Medicine; Family Provider Family Medicine; PCP Family Medicine
DX: R10.13 Epigastric pain (principal); E03.9 Hypothyroidism, unspecified; I10 Essential (primary) hypertension; J44.9 Chronic obstructive pulmonary disease, unspecified; K76.0 Fatty (change of) liver, not elsewhere classified; N28.1 Cyst of kidney, acquired; I51.81 Takotsubo syndrome; Z86.711 Personal history of pulmonary embolism; Z86.718 Personal history of other venous thrombosis and embolism; Z87.891 Personal history of nicotine dependence; Z88.5 Allergy status to narcotic agent
CPT/HCPCS: 76705; 80053; 83690; 85025; 99284; A4216

== ENCOUNTER → 2020-05-16 17:52 | Outpatient (CLI) | payer MEDICARE, SELFPAY | PROVIDERS: PCP Family Medicine; Referring Provider Family Medicine; Visit Provider Family Medicine | DX: Z20.828 Contact with and (suspected) exposure to other viral communicable diseases (principal) | CPT/HCPCS: 87635; C9803; U0003 ==

== ENCOUNTER 2020-05-20 17:34 | Inpatient (IN) | payer MEDICARE, SELFPAY ==
[2020-05-20] VITALS (9 sets, daily range): BP systolic 102–152; BP diastolic 63–112; PULSE 69–107; RESP 22–30; TEMP 35.9–38.9; O2SAT 85–95; BMI 35.6; BMI 35.8
--- NOTE | 2020-05-20 17:53 | EKG12_ITS ---
Test Reason : SOB Blood Pressure : / mmHG Vent. Rate : 106 BPM Atrial Rate : 106 BPM P-R Int : 126 ms QRS Dur : 082 ms QT Int : 312 ms P-R-T Axes : 012 006 048 degrees QTc Int : 414 ms Sinus tachycardia Nonspecific ST abnormality Abnormal ECG Confirmed by CAROLINE BOLES, FELIBERTO ([id number]), restaurant expeditor GENNARO SCALES ([id number]) on 05/22/2020 11:25:03 AM Referred By: YUKI Confirmed By:FELIBERTO VELAZQUEZ MD
--- NOTE | 2020-05-20 17:54 | RAD_ITS ---
STUDY: X-RAY CHEST REASON FOR EXAM: Female, 74 years old. Cough, increased shortness of breath, COVID. TECHNIQUE: Single frontal view of the chest. COMPARISON: 03/09/2017 FINDINGS: Bilateral interstitial infiltrates. There is no demonstrated pleural abnormality. Cardiomegaly. Normal mediastinum and hetal. Normal visualized pulmonary arteries. Normal visualized aortic arch and descending thoracic aorta. Normal visualized thoracic spine. Normal visualized ribs, clavicles, and shoulders. There is no demonstrated abnormality of the visualized soft tissue structures of the upper abdomen. RAD/Chest 1 View (Portable) IMPRESSION: Bilateral infiltrates Electronically Signed: Eric Zuñiga MD at 19:16 EST , Service support ,
--- NOTE | 2020-05-20 18:04 | ED.VIS.GEN ---
History of Present Illness Chief Complaint: Shortness of Breath Informant: Patient Narrative: Patient states that she got ill last week and tested positive for COVID-19. She took the test on Tuesday and found out Tuesday that she was positive. She states that her symptoms got significantly worse today and she is having difficulty breathing. History is limited because the patient is having labored breathing. She does note some diarrhea and vomiting. She notes decreased p.o. She was noted to be 85% on room air. She does not want to be intubated or placed on BiPAP. - Past Medical History (1) Bilateral pulmonary embolism Status: Chronic (2) DVT, bilateral lower limbs Status: Chronic (3) COPD (chronic obstructive pulmonary disease) Status: Chronic (4) GERD (gastroesophageal reflux disease) Status: Chronic (5) HTN (hypertension) Status: Chronic (6) Hypothyroid Status: Chronic (7) Takotsubo cardiomyopathy Status: Chronic Past Medical History - Allergies and Home Meds Allergies/Adverse Reactions: Allergies chlorhexidine Allergy (Verified 05/20/20 17:34) Itching codeine Allergy (Verified 05/20/20 17:34) Itching oxycodone Adverse Reaction (Verified 05/20/20 17:34) Upset Stomach adhesive tape Allergy (Mild, Uncoded 05/20/20 17:34) Unknown Primary Care Physician: Sin Frost MD [Primary Care Provider] - Prior records reviewed: Yes Surgical History: adenoidectomy, total knee arthroplasty, - Smoking Status: Former smoker Drugs: None - Family History Maternal Family History: Family History (Last Reviewed 03/30/18 @ 15:21 by Makenzie Avery) Mother Asthma Cancer Brother Cancer Diabetes Sister Cancer Diabetes Father Thyroid disorder Family History: Reports: Cancer, Heart Disease Paternal Family History: Family History (Last Reviewed 03/30/18 @ 15:21 by Makenzie Avery) Mother Asthma Cancer Brother Cancer Diabetes Sister Cancer Diabetes Father Thyroid disorder Family History: Reports: Pulmonary Disease Sibling Family History: Family History (Last Reviewed 03/30/18 @ 15:21 by Makenzie Avery) Mother Asthma Cancer Brother Cancer Diabetes Sister Cancer Diabetes Father Thyroid disorder Family History: Reports: Diabetes, Heart Disease, Hypertension Review of Systems General: Reports: Chills, Fever, Malaise. Denies: Sweats Eyes: Denies: Visual changes - bilaterally, Diplopia ENT: Denies: Rhinorrhea, Sore throat Cardiovascular: Denies: Chest pain, Palpitations Respiratory: Reports: Dyspnea, Cough, Dyspnea on exertion Gastrointestinal: Reports: Nausea, Vomiting, Diarrhea. Denies: Abdominal pain, Melena, Hematochezia Genitourinary: Denies: Dysuria, Hematuria, Frequency Musculoskeletal: Reports: Myalgias. Denies: Back pain, Extremity Pain Skin: Denies: Rash, Wounds Neurological: Reports: Headache. Denies: Weakness, Numbness Physical Exam Vital Signs/Narrative: Vital Signs Temp Pulse Resp BP Pulse Ox 05/20/20 18:03 107 H 23 H 95 05/20/20 17:34 102.0 F H 101 H 30 H 145/82 H 85 Inital Vital Signs reviewed: Yes General: Well nourished, Well developed, Obese, Acute Distress - Patient appears in a moderate amount of respiratory distress Head: Normocephalic, Atraumatic Eyes: Perrl, EOMI ENT: Moist mucous membranes, No rhinorrhea Neck: Supple, Nontender Cardiovascular: Regular rate, No murmurs, Tachycardia Respiratory: CTA bilaterally, Chest nontender, - - Patient is tachypneic with 1 word sentences Abdomen: Soft, Nontender, Nondistended, Normal bowel sounds Back: Nontender, Normal Inspection Extremities: Nontender, No edema Skin: Normal color, No rash Neurological: Alert, Oriented x3, Normal Strength, Normal Sensation Diagnostic/Tx/Re-eval Clinical Impression(s) from Imaging Studies Chest X-Ray 05/20/20 17:54 IMPRESSION: Bilateral infiltrates Electronically Signed: Eric Zuñiga MD at 19:16 EST , Service support , Chest CTA 05/20/20 19:15 IMPRESSION: Bilateral nonspecific interstitial infiltrates indeterminate for covid 19. COPD and pulmonary fibrosis. Electronically Signed: Eric Zuñiga MD at 19:44 EST , Service support , Laboratory Last Values WBC 4.7 K/mm3 (4.4-11.0) 05/20/20 17:55 RBC 5.44 M/mm3 (4.2-5.4) H 05/20/20 17:55 Hgb 15.4 g/dL (12.0-15.0) H 05/20/20 17:55 Hct 48.0 % (37-47) H 05/20/20 17:55 MCV 88.2 fL (81-99) 05/20/20 17:55 MCH 28.3 pg (27.0-32.0) 05/20/20 17:55 MCHC 32.1 g/dL (32-36) 05/20/20 17:55 RDW Std Deviation 43.5 fl (35.1-43.9) 05/20/20 17:55 RDW Coeff of Dany 13.5 % (11.6-14.6) 05/20/20 17:55 Plt Count 161 K/mm3 (150-450) 05/20/20 17:55 MPV 10.9 fl (6.2-12.0) 05/20/20 17:55 Immature Gran % (Auto) 0.400 % (0.0-0.9) 05/20/20 17:55 Neut % (Auto) 78.6 % (47-70) H 05/20/20 17:55 Lymph % (Auto) 13.5 % (19-41) L 05/20/20 17:55 [place] % (Auto) 7.5 % (0-10) 05/20/20 17:55 Eos % (Auto) 0.0 % (0-5) 05/20/20 17:55 Baso % (Auto) 0.0 % (0-1) 05/20/20 17:55 Absolute Neuts (auto) 3.7 X10^3/uL (2.0-7.7) 05/20/20 17:55 Absolute Lymphs (auto) 0.63 X10^3/uL (0.83-4.51) L 05/20/20 17:55 Nucleated RBC % 0 % (0-5) 05/20/20 17:55 Fibrinogen 631 mg/dl (203-444) H 05/20/20 17:55 D-Dimer Quant (PE/DVT) 0.63 FEU/ug/m (0.27-0.49) H* 05/20/20 17:55 Sodium 135 mmol/L (136-145) L 05/20/20 17:55 Potassium 4.2 mmol/L (3.5-5.1) 05/20/20 17:55 Chloride 100 mmol/L (98-107) 05/20/20 17:55 Carbon Dioxide 28.0 mmol/L (21.0-32.0) 05/20/20 17:55 Anion Gap 7 (5-15) 05/20/20 17:55 BUN 22 mg/dL (7-18) H 05/20/20 17:55 Creatinine 0.94 mg/dL (0.55-1.02) 05/20/20 17:55 Estim Creat Clear Calc 42.79 ml/min 05/20/20 17:55 Est GFR (MDRD) Af Amer 75 mL/min (>60) 05/20/20 17:55 Est GFR (MDRD) Non-Af 62 mL/min (>60) 05/20/20 17:55 BUN/Creatinine Ratio 23.5 RATIO (10-20) H 05/20/20 17:55 Glucose 177 mg/dL (74-106) H 05/20/20 17:55 Lactic Acid 2.0 mmol/L (0.4-1.9) 05/20/20 17:55 Calcium 8.7 mg/dL (8.5-10.1) 05/20/20 17:55 Total Bilirubin 0.50 mg/dL (0.20-1.00) 05/20/20 17:55 AST 22 U/L (15-37) 05/20/20 17:55 ALT 23 U/L (13-56) 05/20/20 17:55 Alkaline Phosphatase 87 U/L (45-117) 05/20/20 17:55 Lactate Dehydrogenase 347 U/L (84-246) H 05/20/20 17:55 Total Creatine Kinase 83 U/L (26-192) 05/20/20 17:55 Troponin I < 0.015 ng/mL (<0.045) 05/20/20 17:55 C-React Prot Ext Range 70.00 mg/L (0.0-3.0) H 05/20/20 17:55 B-Natriuretic Peptide 24.1 pg/mL (0-100) 05/20/20 17:55 Total Protein 7.0 g/dL (6.4-8.2) 05/20/20 17:55 Albumin 3.1 g/dL (3.2-5.0) L 05/20/20 17:55 Globulin 3.9 g/dL (2.2-4.2) 05/20/20 17:55 Albumin/Globulin Ratio 0.8 RATIO (0.9-2.4) L 05/20/20 17:55 Procalcitonin < 0.04 ng/mL (0.00-0.09) 05/20/20 17:55 - EKG Initial EKG Interpretation: Sinus Tachycardia - EKG shows sinus tachycardia at a rate of 106. No significant ectopy or concerning features of ACS - Medical Decision Making Patient received IV fluids, Rocephin, azithromycin, Decadron. CTA is consistent with COVID-19. She has acute hypoxemic respiratory failure due to COVID-19. She does not want BiPAP and she does not want intubation. We attempted to put her on a Ventimask but she was about 91 to 92% on a nonrebreather. Plan will be to admit her into the hospital for further care. - Critical Care Time Critical care time (excluding procedures): 30-74 minutes - 35 min, Discussing w/Patient &/or Family/Mechanical Equipment Test Engineer, Discussing w/Consultants, Arranging Admission or Transfer, Performing Direct Patient Care at Bedside ED Disposition - Plan for ED Patient: Disposition: Acute Care [facility] Diagnosis: Acute hypoxemic respiratory failure due to COVID-19 Referrals: Sin Frost MD [Primary Care Provider] -
[2020-05-20] MEDS: 0.9% Normal Saline 1,000 ML 125 ML IV (18:19)
[2020-05-20] MEDS: Ondansetron 4 MG/2 ML Vial IV (18:20)
[2020-05-20] MEDS: Acetaminophen 500 MG Tablet 1000 MG PO (18:20)
[2020-05-20 18:26] LABS: Absolute Lymphocyte Count 0.63 X10^3/uL (0.83-4.51); Absolute Neutrophil Count 3.7 X10^3/uL (2.0-7.7); Hemoglobin 15.4 g/dL (12.0-15.0); Lymphocyte # 0.63 X10^3/ul (4.0); Lymphocyte % 13.5 % (19-41); Mean Corp Hgb Conc 32.1 g/dL (32-36); Mean Corpuscular Hgb 28.3 pg (27.0-32.0); Mean Corpuscular Volume 88.2 fL (81-99); Mean Platelet Vol. 10.9 fl (6.2-12.0); Monocyte# 0.35 X10^3/uL; Monocyte% 7.5 % (0-10); NRBC Flagged by Analyzer 0 % (0-5); Neutrophil # 3.68 X10^3/uL (2.7-7.7); Neutrophil % 78.6 % (47-70); Platelet Count 161 K/mm3 (150-450); RBC Distribution Width CV 13.5 % (11.6-14.6); RBC Distribution Width SD 43.5 fl (35.1-43.9); Red Blood Count 5.44 M/mm3 (4.2-5.4); White Blood Count 4.7 K/mm3 (4.4-11.0)
[2020-05-20 18:33] LABS: Fibrinogen 631 mg/dl (203-444)
[2020-05-20 18:43] LABS: D-Dimer Quantitative (DVT/PE) 0.63 FEU/ug/m (0.27-0.49)
[2020-05-20 18:57] LABS: BNP,B-Type NATRIURETIC PEPTIDE 24.1 pg/mL (0-100)
[2020-05-20 19:02] LABS: BUN 22 mg/dL (7-18); Creatinine, Serum 0.94 mg/dL (0.55-1.02); Estimated Creatinine Clearance 42.79 ml/min; Glucose 177 mg/dL (74-106)
[2020-05-20 19:03] LABS: ALB/GLOB Ratio 0.8 RATIO (0.9-2.4); AST(SGOT) 22 U/L (15-37); Alanine Aminotransfer ALT/SGPT 23 U/L (13-56); Albumin, Serum 3.1 g/dL (3.2-5.0); Alkaline Phosphatase 87 U/L (45-117); CPK Total, Creatine Kinase 83 U/L (26-192); Calcium,Total 8.7 mg/dL (8.5-10.1); Globulin 3.9 g/dL (2.2-4.2); Potassium 4.2 mmol/L (3.5-5.1); Sodium Level 135 mmol/L (136-145)
[2020-05-20 19:04] LABS: Anion Gap 7 (5-15); Chloride 100 mmol/L (98-107); LDH 347 U/L (84-246)
[2020-05-20 19:13] LABS: Procalcitonin < 0.04 ng/mL (0.00-0.09)
--- NOTE | 2020-05-20 19:15 | CT_ITS ---
STUDY: CTA CHEST REASON FOR EXAM: Female, 74 years old. PE,COVID + WITH INCREASE SOB RADIATION DOSAGE (If Supplied By Facility): CTDIvol = ( 13.49 ) mGy, DLP = ( 440.24 ) mGycm TECHNIQUE: The examination was performed with the intravenous administration of IV 75mL [id number]-370. Post-processing of the angiographic images was performed, with multiplanar reformation and 3D reconstruction. Individualized dose optimization techniques were used for this CT. COMPARISON: Chest x-ray from today and CTA chest 03/19/2017 FINDINGS: Normal enhancement of the main pulmonary artery and right and left pulmonary arteries. Normal enhancement of the bilateral peripheral pulmonary arteries. There is no demonstrated pulmonary embolism. Normal thoracic aorta and visualized great vessels. There is no demonstrated aortic dissection. Normal heart and pericardium. Borderline nonspecific mediastinal lymphadenopathy measuring up to 16 mm. Normal hilar regions. Normal visualized trachea and bronchi. Bilateral interstitial infiltrates. Cystic changes are significantly upper lung field. This centrilobular and paraseptal emphysema. Normal pleura. Borderline nonspecific mediastinal lymphadenopathy. Normal chest wall structures. Normal osseous structures. Normal visualized upper abdomen. CT/CTA Chest W/WO Contrast IMPRESSION: Bilateral nonspecific interstitial infiltrates indeterminate for covid 19. COPD and pulmonary fibrosis. Electronically Signed: Eric Zuñiga MD at 19:44 EST , Service support ,
[2020-05-20 19:16] LABS: BUN/Creat Ratio 23.5 RATIO (10-20); EST Glomerular Filtration Rate 62 mL/min (>60); Est Glom Filt Rate - Afr Amer 75 mL/min (>60)
[2020-05-20] MEDS: dexAMETHasone 10 MG/ML Vial IV (20:02)
[2020-05-20] MEDS: Ceftriaxone 1 GM/50 ML BAG IV (20:02)
--- NOTE | 2020-05-20 20:28 | PCM.HP.STD ---
Problem List (1) Sepsis Status: Acute Qualifiers: Sepsis type: sepsis due to unspecified organism Sepsis acute organ dysfunction status: unspecified Qualified Code(s): A41.9 - Sepsis, unspecified organism (2) Acute hypoxemic respiratory failure due to COVID-19 Status: Acute (3) GERD (gastroesophageal reflux disease) Status: Chronic Qualifiers: Esophagitis presence: esophagitis presence not specified Qualified Code(s): K21.9 - Gastro-esophageal reflux disease without esophagitis (4) DVT, bilateral lower limbs Status: Chronic Qualifiers: Affected thrombotic vein of extremity: unspecified vein of extremity Chronicity: chronic Qualified Code(s): I82.503 - Chronic embolism and thrombosis of unspecified deep veins of lower extremity, bilateral (5) COPD (chronic obstructive pulmonary disease) Status: Chronic Qualifiers: COPD type: unspecified COPD Qualified Code(s): J44.9 - Chronic obstructive pulmonary disease, unspecified (6) Takotsubo cardiomyopathy Status: Chronic (7) HTN (hypertension) Status: Chronic Qualifiers: Hypertension type: essential hypertension Qualified Code(s): I10 - Essential (primary) hypertension History of Present Illness Date of Admission: 05/20/20 Chief Complaint: Worsening dyspnea, + COVID The patient is a 74 y/o F w/ PMHx: Hx BL PE and DVT, GERD, HTN, HLD, Asthma/COPD, Former Tobacco use, Hypothyroidism, Obesity, Takotsubo cardiomyopathy who presents to the [facility] ED on 05/20/20 with history of onset illness the week prior with COVID testing performed Tuesday with a positive callback on Tuesday with onset of concerning symptoms approximately 2 to 3 days prior to her test including fever, chills, frontal throbbing headaches, nausea without emesis, loose stools, body aches and pains, cough noted to be nonproductive with dyspnea with no alteration sense of taste or smell with significant other also ill but less severe with significantly worsened dyspnea over the last 24 hours, more severe on day of ED presentation prompting EMS call noted to be 85% on room air at home with increased work of breathing and accessory muscle usage with necessity for placement of nonrebreather. She notes that she has been wearing a mask however she is unsure if her has been doing so and has been hanging out with his friends. Work-up in the ED included T102.1, heart rate 105, BP 152/112, respiratory rate 25, 95% on a nonrebreather, CBC with WBC 4.7, hemoglobin 15.4, platelet 161 with lymphopenia, coags with fibrinogen 631, D-dimer 0.63, CMP with sodium 135, BUN/creatinine 22/0.97, glucose 177, lactic acid 2.0, LDH 347, total creatinine kinase 83, troponin less than 0.015, CRP 70, BNP 24.1, pro calcitonin less than 0.04, blood culture x2 pending per ED, chest x-ray with bilateral infiltrates, CTPA with bilateral nonspecific interstitial infiltrates indeterminate for COVID-19 with chronic COPD and pulmonary fibrotic change. In the ED patient administered normal saline, Zofran, Decadron, Rocephin, azithromycin, albuterol inhaler, Tylenol. Past Medical History Past Medical History (Chronic Problems): Chronic Problems (Last Reviewed 03/30/18 @ 15:21 by Makenzie Avery) Allergic rhinitis (Chronic) Vitamin D deficiency (Chronic) GERD (gastroesophageal reflux disease) (Chronic) DVT, bilateral lower limbs (Chronic) Bilateral pulmonary embolism (Chronic) Ankle fracture, right (Chronic) COPD (chronic obstructive pulmonary disease) (Chronic) Takotsubo cardiomyopathy (Chronic) HTN (hypertension) (Chronic) Status post open reduction with internal fixation (ORIF) of fracture of ankle (Chronic) Avulsion fracture of ankle (Chronic) Hypothyroid (Chronic) Medical History: Medical History (Last Reviewed 03/30/18 @ 15:21 by Makenzie Avery) Hx of diverticulitis of colon (Acute) Z87.19 Allergic rhinitis (Chronic) J30.9 Vitamin D deficiency (Chronic) E55.9 GERD (gastroesophageal reflux disease) (Chronic) K21.9 DVT, bilateral lower limbs (Chronic) I82.403 Shortness of breath (Acute) R06.02 Chest pain (Acute) R07.9 Bilateral pulmonary embolism (Chronic) I26.99 Ankle fracture, right (Chronic) S82.891A COPD (chronic obstructive pulmonary disease) (Chronic) J44.9 Takotsubo cardiomyopathy (Chronic) I51.81 HTN (hypertension) (Chronic) I10 Avulsion fracture of ankle (Chronic) S82.899A Hypothyroid (Chronic) E03.9 Closed right ankle fracture (Acute) S82.891A Allergies chlorhexidine Allergy (Verified 05/20/20 17:34) Itching codeine Allergy (Verified 05/20/20 17:34) Itching oxycodone Adverse Reaction (Verified 05/20/20 17:34) Upset Stomach adhesive tape Allergy (Mild, Uncoded 05/20/20 17:34) Unknown Home Medications: Ambulatory Orders Medication Instructions Recorded Ergocalciferol [Vitamin D] 50,000 unit PO BARBA 11/02/13 Minocycline HCl [Minocin] 50 mg PO DAILY 10/28/17 Loratadine 10 mg PO DAILY 12/23/17 Ascorbic Acid [Vitamin C] 500 mg PO DAILY 04/02/19 Biotin 1 cap PO DAILY 04/02/19 Omeprazole 40 mg PO DAILY PRN PRN 04/02/19 Fluticasone Propion/Salmeterol 1 puff INHALATION BID 05/20/20 [Wixela 250-50 Inhub] Prednisone See Taper PO DAILY 05/20/20 Surgical History: Surgical History (Last Reviewed 03/30/18 @ 15:21 by Makenzie Avery) Status post open reduction with internal fixation (ORIF) of fracture of ankle (Chronic) Z96.7, Z87.81 H/O carpal tunnel repair Z98.890 right H/O eye surgery Z98.890 H/O: hysterectomy Z90.710 S/P appendectomy Z90.49 S/P foot surgery, left Z98.890 S/P foot surgery, right Z98.890 S/P tonsillectomy Z90.89 Surgical History: adenoidectomy, total knee arthroplasty, - - Colectomy, hysterectomy, appendectomy, carpal tunnel surgery, bilateral foot surgery and ankle surgery, right total knee replacement, left partial knee replacement. 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 Tobacco Use: Non-smoker Alcohol: None Drugs: None - *Family History Maternal Family History: Family History (Last Reviewed 03/30/18 @ 15:21 by Makenzie Avery) Mother Asthma Cancer Brother Cancer Diabetes Sister Cancer Diabetes Father Thyroid disorder History Items: Cancer, Heart Disease Paternal Family History: Family History (Last Reviewed 03/30/18 @ 15:21 by Makenzie Avery) Mother Asthma Cancer Brother Cancer Diabetes Sister Cancer Diabetes Father Thyroid disorder History Items: Pulmonary Disease Sibling Family History: Family History (Last Reviewed 03/30/18 @ 15:21 by Makenzie Avery) Mother Asthma Cancer Brother Cancer Diabetes Sister Cancer Diabetes Father Thyroid disorder History Items: Diabetes, Heart Disease, Hypertension Review of Systems Constitutional: Reports: Anorexia, Chills, Fever, Malaise, Weakness, Fatigue. Denies: Weight Change HEENT: Reports: Head Aches, Sinus Congestion. Denies: Sinus Drainage Cardiovascular: Denies: Chest Pain, Chest Pressure, Chest Tightness, Light Headedness, Orthopnea, Palpitations, Syncope Respiratory: Reports: Cough, Shortness of Breath, Shortness of breath at rest, Shortness of breath upon exertion. Denies: Sputum production, Wheezing Gastrointestinal: Reports: Diarrhea, Nausea, Vomiting. Denies: Abdominal Pain Genitourinary: Denies: Dysuria Musculoskeletal: Reports: Joint Pain, Muscle pain. Denies: Joint Tenderness Skin: Denies: Rash, Wounds Neurological: Denies: Numbness, Tingling, Focal weakness Psychiatric: Denies: Anxiety, Depression, Homicidal Ideations, Suicidal Ideations Hematologic/ Lymphatic: Denies: Easy Bruising, Easy Bleeding VTE Information - Inpt Only VTE Present on Admission: No VTE Mechan Device Prophylaxis: SCD's VTE Pharm Prophylaxis ordered?: Yes Patient Problems: Active and Suspected Problems (Last Reviewed 03/30/18 @ 15:21 by Makenzie Avery) Acute hypoxemic respiratory failure due to COVID-19 (Acute) Subjective: Patient seated upright in the ED bed, fatigued, improved since initial ED presentation, had had significant increased work of breathing accessory muscle usage. Objective: Physical Examination: General: awake, alert, oriented x 3 and cooperative, seated upright in the ED bed, fatigued appearance, improved since initial ED presentation, less dyspneic. Skin: normal color, turgor, no icterus, cyanosis. HEENT: AT/NC, EOMI, PERRLA, dry MM, no carotid bruits or JVD noted. Lungs: Diminished breath sounds, greater bases, still some increased effort with increased respiratory rate but now no longer usage of accessory muscles, no obvious rales, rhonchi or wheezing. Heart: Tachycardic with regular rhythm; no gallop, rub audible. Abdomen: soft, obese, NTTP, ND, mildly hyperactive BS, no HSM. Extremities: no cyanosis, clubbing, or edema. Neurological: patient awake, alert, oriented as noted; cognitive function appears intact; pupils equally reactive to light and accomodation; cranial nerves II-XII grossly normal, moving all 4 extremities, no focal deficits, strength severely global decrease secondary to acute presentation. Psychiatric: affect appears fatigued, respiratory status improving, no acute evidence of depressive or anxiety feelings. - Physical Exam Vitals/I&O's: Vital Signs Temp Pulse Resp BP Pulse Ox 98.4 F 82 22 H 105/75 94 05/20/20 19:45 05/20/20 19:45 05/20/20 19:45 05/20/20 19:45 05/20/20 19:45 Oxygen Flow Rate (L/min) 15 Oxygen Delivery Method Non-Rebreather Weight: 195 lb Body Mass Index (BMI) 35.6 Laboratory Results 05/20/20 17:55: Fibrinogen 631 H, D-Dimer Quant (PE/DVT) 0.63 H* 05/20/20 17:55: Sodium 135 L, Potassium 4.2, Chloride 100, Carbon Dioxide 28.0, Anion Gap 7, BUN 22 H, Creatinine 0.94, Estim Creat Clear Calc 42.79, Est GFR (MDRD) Af Amer 75, Est GFR (MDRD) Non-Af 62, BUN/Creatinine Ratio 23.5 H, Glucose 177 H, Calcium 8.7, Total Bilirubin 0.50, AST 22, ALT 23, Alkaline Phosphatase 87, Lactate Dehydrogenase 347 H, Total Creatine Kinase 83, Troponin I < 0.015, C-React Prot Ext Range 70.00 H, Total Protein 7.0, Albumin 3.1 L, Globulin 3.9, Albumin/Globulin Ratio 0.8 L 05/20/20 17:55: B-Natriuretic Peptide 24.1 05/20/20 17:55: Procalcitonin < 0.04 05/20/20 17:55: WBC 4.7, RBC 5.44 H, Hgb 15.4 H, Hct 48.0 H, MCV 88.2, MCH 28.3, MCHC 32.1, RDW Std Deviation 43.5, RDW Coeff of Dany 13.5, Plt Count 161, MPV 10.9, Immature Gran % (Auto) 0.400, Neut % (Auto) 78.6 H, Lymph % (Auto) 13.5 L, Brewster % (Auto) 7.5, Eos % (Auto) 0.0, Baso % (Auto) 0.0, Absolute Neuts (auto) 3.7, Absolute Lymphs (auto) 0.63 L, Nucleated RBC % 0 05/20/20 17:55: Lactic Acid 2.0 Current Medications Sodium Chloride () 1,000 mls @ 125 mls/hr IV .Q8H BRITTANY Last Admin: 05/20/20 18:19 Dose: 125 mls/hr Documented by: Assessment/Plan All Active Problems (Last Reviewed 03/30/18 @ 15:21 by Makenzie Avery) Acute hypoxemic respiratory failure due to COVID-19 (Acute) Sepsis (Acute) Hx of diverticulitis of colon (Acute) Shortness of breath (Acute) Chest pain (Acute) Closed right ankle fracture (Acute) Acute respiratory failure with hypoxemia (Resolved) Hypokalemia (Resolved) The patient is a 74 y/o F w/ PMHx: Hx BL PE and DVT, GERD, HTN, HLD, Asthma/COPD, Former Tobacco use, Hypothyroidism, Obesity, Takotsubo cardiomyopathy who presents to the [facility] ED on 05/20/20 with history of onset illness the week prior with COVID testing performed Tuesday with a positive callback on Tuesday with onset of concerning symptoms approximately 2 to 3 days prior with significantly worsened dyspnea over the last 24 hours. 1. Acute Sepsis secondary to Acute Hypoxic Respiratory Failure secondary to Bilateral Pneumonia secondary to Acute Viral Syndrome, COVID-19: Will admit to the COVID unit as PCU status initially on stepdown given recent significant respiratory presentation, clinically now improving, discussed frankly CODE STATUS at length and patient declined intubation as well as any usage of BiPAP with DNR CCA, no intubation status, will maintain on oxygen, likely will need to attempt airvo, declined BIPAP and intubation, will request ID involvement for additional intervention clearance, continue ATC duoneb, PRN albuterol, maintain on IV Rocephin and Azithromycin, continue IV decadron, HOB, IS parameters w/ pending sputum cultures and urine antigens, obtain respiratory viral panel, ED already obtained COVID panel labs, will repeat labs QOD, continue supportive care including q 2 hour turning including prone given no prone bed availability and judicious hydration, closely monitor for worsening status for ARDS and multiorgan failure. 2. Chronic COPD/Asthma: Currently treated as noted #1, continue ATC duonebs, PRN albuterol, HOB, IS parameters, currently also as noted maintain on IV Decadron. 3. History of prior VTE (PE, DVT), following surgical intervention: Patient notes she had a provoked VTE history, treated, no longer anticoagulated. 4. Hypertension: Low BPs in the ED, normally on Coreg, will hold and add once appropriate, as needed IV hydralazine in interim. 5. Hyperlipidemia: Not on statin per list, defer to outpatient. 6. History of hypothyroidism noted on chart: Patient not on regimen, will obtain TSH and free T4. 7. History of Takotsubo cardiomyopathy: Continue aspirin, not on statin, temporarily holding beta-chet as noted, not on BALDO inhibitor. 8. GERD: We will continue patient home PPI. 9. Former tobacco use: Notes quitting remotely, encourage continued tobacco cessation. 10. DVT prophylaxis: SCDs, Lovenox. 11. CODE status: Patient does not have healthcare power of attorney recruiter nor living will set up. Discussed CODE status at length including difference between FULL code, DNR-CCA and DNR-CC status. Following discussions about the differences in these status, requested DNR-CCA, no intubation and declined any usage concurrently of BIPAP, willing to trial Airvo. Advanced Care Planning Face to Face Time: 16 minutes. Inpatient E&M: 35651 Init Hosp L3 Procedures: 99516 Advncd Care Plan 30 Min
[2020-05-20 22:07] LABS: Reflex Lactate? Y
[2020-05-20 22:59] LABS: Lactic Acid 1.3 mmol/L (0.4-1.9)
[2020-05-21] VITALS (26 sets, daily range): BP systolic 91–137; BP diastolic 54–80; PULSE 63–112; RESP 12–36; TEMP 36.4–38.5; O2SAT 79–97; BMI 35.6
[2020-05-21] MEDS: 0.9% Normal Saline 1,000 ML 100 ML IV (00:16)
[2020-05-21] MEDS: Enoxaparin 40 MG/0.4 ML Syringe SC ×3 (00:16→19:57)
[2020-05-21 07:34] LABS: Absolute Lymphocyte Count 0.47 X10^3/uL (0.83-4.51); Absolute Neutrophil Count 2.3 X10^3/uL (2.0-7.7); Hematocrit 42.6 % (37-47); Hemoglobin 13.8 g/dL (12.0-15.0); Lymphocyte # 0.47 X10^3/ul (4.0); Lymphocyte % 15.9 % (19-41); Mean Corp Hgb Conc 32.4 g/dL (32-36); Mean Corpuscular Hgb 29.2 pg (27.0-32.0); Mean Corpuscular Volume 90.1 fL (81-99); Mean Platelet Vol. 10.5 fl (6.2-12.0); Monocyte% 6.8 % (0-10); NRBC Flagged by Analyzer 0 % (0-5); Neutrophil # 2.27 X10^3/uL (2.7-7.7); POSITIVE DIFFERENTIAL YES; Platelet Count 146 K/mm3 (150-450); RBC Distribution Width CV 13.3 % (11.6-14.6); RBC Distribution Width SD 44.2 fl (35.1-43.9); Red Blood Count 4.73 M/mm3 (4.2-5.4)
[2020-05-21 07:46] LABS: D-Dimer Quantitative (DVT/PE) 0.36 FEU/ug/m (0.27-0.49)
[2020-05-21 07:55] LABS: Differential Indicated SCAN CRITERIA MET
[2020-05-21 08:10] LABS: ALB/GLOB Ratio 0.7 RATIO (0.9-2.4); AST(SGOT) 22 U/L (15-37); Alanine Aminotransfer ALT/SGPT 21 U/L (13-56); Albumin, Serum 2.6 g/dL (3.2-5.0); Alkaline Phosphatase 79 U/L (45-117); Anion Gap 7 (5-15); BUN 21 mg/dL (7-18); BUN/Creat Ratio 26.6 RATIO (10-20); Calcium,Total 8.1 mg/dL (8.5-10.1); Chloride 105 mmol/L (98-107); Creatinine, Serum 0.79 mg/dL (0.55-1.02); EST Glomerular Filtration Rate 76 mL/min (>60); Est Glom Filt Rate - Afr Amer 92 mL/min (>60); Estimated Creatinine Clearance 40.22 ml/min; Ferritin 363 ng/mL (8-252); Globulin 3.7 g/dL (2.2-4.2); Glucose 235 mg/dL (74-106); Potassium 4.4 mmol/L (3.5-5.1); Protein, Total 6.3 g/dL (6.4-8.2); Sodium Level 137 mmol/L (136-145); T4 Free Direct 1.25 ng/dL (0.76-1.46)
[2020-05-21 08:16] LABS: Differential Comment SCANNED
[2020-05-21] MEDS: Fluticasone/Salmeterol 232-14 Inhaler 1 PUFF IH ×2 (08:39→20:30)
[2020-05-21] MEDS: Aspirin 81 MG TAB.CHEW PO (08:41)
[2020-05-21 09:46] LABS: Procalcitonin < 0.04 ng/mL (0.00-0.09)
[2020-05-21] MEDS: dexAMETHasone 4 MG Tablet 6 MG PO (09:47)
[2020-05-21] MEDS: Umeclidinium Bromide Inhaler 1 PUFF IH (09:47)
[2020-05-21] MEDS: Acetaminophen 325 MG Tablet 650 MG PO ×2 (10:28→19:58)
[2020-05-21] MEDS: Carvedilol 3.125 MG TABLET PO (10:29)
--- NOTE | 2020-05-21 11:15 | CASEMGMT ---
RN AB called patient in room for initial transition planning/care coordination assessment. RN AB introduced self and role at [facility]. Patient is alert and oriented. Patient willing to participate in assessment and is able to answer all questions appropriately. Care providers, pharmacy, and demographics verified. Patient wishes to discharge home, denies need for home health at this time. Patient states he has no further needs or concerns at this time. CM to follow for discharge planning needs that may arise. PCP: Santosh Specialists: Cheng adobe layer helper Preferred Pharmacy: [facility] with [facility] retail at discharge. Insurance: [employer] [facility] Prescription Benefit: yes Living Will/HPOA: none LNOK: Living Arrangements: Patient lives with in a 1 story home with 2 steps and railing to enter the home. Patient states she is independent at home. Patient states is ill as well and had been isolating at home. Patient states she has family that could bring groceries and supplies to home. Transportation: self, DME/HHC: patient states she has shower chair, raised toilet, cane, walker, and grab bars. Will monitor patient for home oxygen at discharge and would like [employer]. Patient has had [facility] in the past. Disposition Plan: Patient to discharge home with family support and follow-up plans in place. Sheron ESTES, RN, CM
[2020-05-21] MEDS: Thyroid 60 MG Tablet 120 MG PO (12:33)
--- NOTE | 2020-05-21 14:29 | NT.THERAPY_ITS ---
Nutrition Therapy Report - History Nutrition Services has been consulted to:: Manage nutrient details of diet order Current diet / nutrition support order:: cardiac, 120mL ensure enlive 4x/day - Anthropometric Measurements Height:: 5 ft 2 in Weight:: 88.5 kg Body Mass Index (BMI):: 35.6 - Relevant Labs Relevant Labs:: WBC 3.0 K/mm3 (4.4-11.0) L 05/21/20 07:15 RBC 5.44 M/mm3 (4.2-5.4) H 05/20/20 17:55 Hgb 15.4 g/dL (12.0-15.0) H 05/20/20 17:55 Hct 48.0 % (37-47) H 05/20/20 17:55 RDW Std Deviation 44.2 fl (35.1-43.9) H 05/21/20 07:15 Plt Count 146 K/mm3 (150-450) L 05/21/20 07:15 Neut % (Auto) 77.0 % (47-70) H 05/21/20 07:15 Lymph % (Auto) 15.9 % (19-41) L 05/21/20 07:15 Absolute Lymphs (auto) 0.47 X10^3/uL (0.83-4.51) L 05/21/20 07:15 Fibrinogen 631 mg/dl (203-444) H 05/20/20 17:55 D-Dimer Quant (PE/DVT) 0.63 FEU/ug/m (0.27-0.49) H* 05/20/20 17:55 Sodium 135 mmol/L (136-145) L 05/20/20 17:55 BUN 21 mg/dL (7-18) H 05/21/20 07:15 BUN/Creatinine Ratio 26.6 RATIO (10-20) H 05/21/20 07:15 Glucose 235 mg/dL (74-106) H 05/21/20 07:15 Calcium 8.1 mg/dL (8.5-10.1) L 05/21/20 07:15 Ferritin 363 ng/mL (8-252) H 05/21/20 07:15 Lactate Dehydrogenase 347 U/L (84-246) H 05/20/20 17:55 C-React Prot Ext Range 79.20 mg/L (0.0-3.0) H 05/21/20 07:15 Total Protein 6.3 g/dL (6.4-8.2) L 05/21/20 07:15 Albumin 2.6 g/dL (3.2-5.0) L 05/21/20 07:15 Albumin/Globulin Ratio 0.7 RATIO (0.9-2.4) L 05/21/20 07:15 TSH 0.10 uIU/mL (0.358-3.74) L 05/21/20 07:15 - Assessment Food / Nutrition-Related History:: Pt currently in isolation d/t COVID-19. Spoke w/ pt via room phone. Pt describes appetite/intake as not good for ~5 days WORK[employer] COMP[employer]ATION [employer]IST. States she was eating very little at home. Describes slight improvement in PO intake this afternoon, consumed ~50% of lunch this date. - Nutrition Diagnosis Problem / Etiology / Signs & Symptoms (PES):: Pt w/ severe, acute malnutrition related to inadequate energy intake as evidenced by 4.9#/2.45% wt loss, estimated PO intake meeting less than 50% of estimated nutritional needs for 5 days [employer]. Evidence of Malnutrition Exists:: Yes Severe PCM:: Acute Illness - Nutrition Intervention Nutrition Prescription:: [id number] calories, 70-80 g protein/day - Food / Nutrient Delivery Interventions Summary of nutrition intervention:: Discussed ONS- does not like Ensure Enlive because she has phlegm. Agreeable to Ensure Clear. Will provide w/ meals to cluster w/ nursing care. Nutrition support ordered as / adjusted to:: regular diet, 240mL ensure clear w/ meals - MNT Monitoring Further MNT monitoring and evaluation required?: Yes MNT Follow-up in:: 3-5 days
[2020-05-21] MEDS: 0.9% Saline Lock 10 ML Syringe IV ×3 (15:27→21:44)
--- NOTE | 2020-05-21 17:23 | CON.PCM_ITS ---
Problem List (1) Acute hypoxemic respiratory failure due to COVID-19 Status: Acute Reason for Consult: covid Consulted by: Dr. Brito History of Present Illness: The patient is a 74 year old F presented with sx since 05/11, c/o headache, severe diarrhea, aches, cough, and dyspnea. No change in taste or smell. Came to ED, fever over 102, sats low, now on 15L, felt better as soon as O2 started. sick at home. Full ROS performed and neg except as noted above. - Medical History Past Medical History (Chronic Problems): Chronic Problems (Last Reviewed 03/30/18 @ 15:21 by Makenzie Avery) Allergic rhinitis (Chronic) Vitamin D deficiency (Chronic) GERD (gastroesophageal reflux disease) (Chronic) DVT, bilateral lower limbs (Chronic) Bilateral pulmonary embolism (Chronic) Ankle fracture, right (Chronic) COPD (chronic obstructive pulmonary disease) (Chronic) Takotsubo cardiomyopathy (Chronic) HTN (hypertension) (Chronic) Status post open reduction with internal fixation (ORIF) of fracture of ankle (Chronic) Avulsion fracture of ankle (Chronic) Hypothyroid (Chronic) Allergies/Adverse Reactions: Allergies chlorhexidine Allergy (Verified 05/20/20 17:34) Itching codeine Allergy (Verified 05/20/20 17:34) Itching oxycodone Adverse Reaction (Verified 05/20/20 17:34) Upset Stomach adhesive tape Allergy (Mild, Uncoded 05/20/20 17:34) Unknown Home Medications: Ambulatory Orders Medication Instructions Recorded Ergocalciferol [Vitamin D] 50,000 unit PO BARBA 11/02/13 Minocycline HCl [Minocin] 50 mg PO DAILY 10/28/17 Loratadine 10 mg PO DAILY 12/23/17 Ascorbic Acid [Vitamin C] 500 mg PO DAILY 04/02/19 Biotin 1 cap PO DAILY 04/02/19 Omeprazole 40 mg PO DAILY PRN PRN 04/02/19 Fluticasone Propion/Salmeterol 1 puff INHALATION BID 05/20/20 [Wixela 250-50 Inhub] Prednisone See Taper PO DAILY 05/20/20 Carvedilol 3.125 mg PO DAILY 05/21/20 Thyroid,Pork [Kendall Thyroid] 120 mg PO DAILY 05/21/20 - Social History SMOKING STATUS:: Former smoker Vital Signs Temp Pulse Resp BP Pulse Ox 97.7 F L 71 20 H 109/56 L 90 05/21/20 15:38 05/21/20 16:00 05/21/20 15:38 05/21/20 15:38 05/21/20 15:38 Oxygen Flow Rate (L/min) 15 Oxygen Delivery Method Non-Rebreather Weight: 88.5 kg Body Mass Index (BMI) 35.6 Microbiology Past 72 Hours 05/21/20 05:30 Gram Stain - Final Sputum, Expectorated/Coughed 05/21/20 01:22 Respiratory Panel (PCR) - Final Mucosa - Nasopharyngeal 05/21/20 00:05 Legionella Antigen - Final Urine, Random Streptococcus pneumoniae Antigen (M - Final Laboratory Tests Past 24 Hrs 05/20/20 05/20/20 05/20/20 17:55 17:55 17:55 WBC RBC Hgb Hct MCV MCH MCHC RDW Std Deviation RDW Coeff of Dany Plt Count MPV Immature Gran % (Auto) Neut % (Auto) Lymph % (Auto) [place] % (Auto) Eos % (Auto) Baso % (Auto) Absolute Neuts (auto) Absolute Lymphs (auto) Nucleated RBC % Differential Comment Diff Path Review Fibrinogen 631 H D-Dimer Quant (PE/DVT) 0.63 H* Sodium 135 L Potassium 4.2 Chloride 100 Carbon Dioxide 28.0 Anion Gap 7 BUN 22 H Creatinine 0.94 Estim Creat Clear Calc 42.79 Est GFR (MDRD) Af Amer 75 Est GFR (MDRD) Non-Af 62 BUN/Creatinine Ratio 23.5 H Glucose 177 H Lactic Acid Calcium 8.7 Magnesium Ferritin Total Bilirubin 0.50 AST 22 ALT 23 Alkaline Phosphatase 87 Lactate Dehydrogenase 347 H Total Creatine Kinase 83 Troponin I < 0.015 C-React Prot Ext Range 70.00 H B-Natriuretic Peptide 24.1 Total Protein 7.0 Albumin 3.1 L Globulin 3.9 Albumin/Globulin Ratio 0.8 L Procalcitonin TSH Free T4 Blood Type 05/20/20 05/20/20 05/20/20 17:55 17:55 17:55 WBC 4.7 RBC 5.44 H Hgb 15.4 H Hct 48.0 H MCV 88.2 MCH 28.3 MCHC 32.1 RDW Std Deviation 43.5 RDW Coeff of Dany 13.5 Plt Count 161 MPV 10.9 Immature Gran % (Auto) 0.400 Neut % (Auto) 78.6 H Lymph % (Auto) 13.5 L [place] % (Auto) 7.5 Eos % (Auto) 0.0 Baso % (Auto) 0.0 Absolute Neuts (auto) 3.7 Absolute Lymphs (auto) 0.63 L Nucleated RBC % 0 Differential Comment Diff Path Review Fibrinogen D-Dimer Quant (PE/DVT) Sodium Potassium Chloride Carbon Dioxide Anion Gap BUN Creatinine Estim Creat Clear Calc Est GFR (MDRD) Af Amer Est GFR (MDRD) Non-Af BUN/Creatinine Ratio Glucose Lactic Acid 2.0 Calcium Magnesium Ferritin Total Bilirubin AST ALT Alkaline Phosphatase Lactate Dehydrogenase Total Creatine Kinase Troponin I C-React Prot Ext Range B-Natriuretic Peptide Total Protein Albumin Globulin Albumin/Globulin Ratio Procalcitonin < 0.04 TSH Free T4 Blood Type 05/20/20 05/20/20 05/21/20 17:55 22:30 07:06 WBC RBC Hgb Hct MCV MCH MCHC RDW Std Deviation RDW Coeff of Dany Plt Count MPV Immature Gran % (Auto) Neut % (Auto) Lymph % (Auto) [place] % (Auto) Eos % (Auto) Baso % (Auto) Absolute Neuts (auto) Absolute Lymphs (auto) Nucleated RBC % Differential Comment Diff Path Review Fibrinogen D-Dimer Quant (PE/DVT) Sodium Potassium Chloride Carbon Dioxide Anion Gap BUN Creatinine Estim Creat Clear Calc Est GFR (MDRD) Af Amer Est GFR (MDRD) Non-Af BUN/Creatinine Ratio Glucose Lactic Acid 1.3 Calcium Magnesium 2.0 Ferritin Total Bilirubin AST ALT Alkaline Phosphatase Lactate Dehydrogenase Total Creatine Kinase Troponin I C-React Prot Ext Range B-Natriuretic Peptide Total Protein Albumin Globulin Albumin/Globulin Ratio Procalcitonin TSH Free T4 Blood Type O POSITIVE 05/21/20 05/21/20 05/21/20 07:15 07:15 07:15 WBC 3.0 L RBC 4.73 Hgb 13.8 Hct 42.6 MCV 90.1 MCH 29.2 MCHC 32.4 RDW Std Deviation 44.2 H RDW Coeff of Dany 13.3 Plt Count 146 L MPV 10.5 Immature Gran % (Auto) 0.300 Neut % (Auto) 77.0 H Lymph % (Auto) 15.9 L [place] % (Auto) 6.8 Eos % (Auto) 0.0 Baso % (Auto) 0.0 Absolute Neuts (auto) 2.3 Absolute Lymphs (auto) 0.47 L Nucleated RBC % 0 Differential Comment SCANNED Diff Path Review May foll Fibrinogen D-Dimer Quant (PE/DVT) 0.36 Sodium 137 Potassium 4.4 Chloride 105 Carbon Dioxide 25.0 Anion Gap 7 BUN 21 H Creatinine 0.79 Estim Creat Clear Calc 40.22 Est GFR (MDRD) Af Amer 92 Est GFR (MDRD) Non-Af 76 BUN/Creatinine Ratio 26.6 H Glucose 235 H Lactic Acid Calcium 8.1 L Magnesium Ferritin 363 H Total Bilirubin 0.40 AST 22 ALT 21 Alkaline Phosphatase 79 Lactate Dehydrogenase Total Creatine Kinase Troponin I < 0.015 C-React Prot Ext Range 79.20 H B-Natriuretic Peptide Total Protein 6.3 L Albumin 2.6 L Globulin 3.7 Albumin/Globulin Ratio 0.7 L Procalcitonin TSH 0.10 L Free T4 1.25 Blood Type 05/21/20 07:15 WBC RBC Hgb Hct MCV MCH MCHC RDW Std Deviation RDW Coeff of Dany Plt Count MPV Immature Gran % (Auto) Neut % (Auto) Lymph % (Auto) [place] % (Auto) Eos % (Auto) Baso % (Auto) Absolute Neuts (auto) Absolute Lymphs (auto) Nucleated RBC % Differential Comment Diff Path Review Fibrinogen D-Dimer Quant (PE/DVT) Sodium Potassium Chloride Carbon Dioxide Anion Gap BUN Creatinine Estim Creat Clear Calc Est GFR (MDRD) Af Amer Est GFR (MDRD) Non-Af BUN/Creatinine Ratio Glucose Lactic Acid Calcium Magnesium Ferritin Total Bilirubin AST ALT Alkaline Phosphatase Lactate Dehydrogenase Total Creatine Kinase Troponin I C-React Prot Ext Range B-Natriuretic Peptide Total Protein Albumin Globulin Albumin/Globulin Ratio Procalcitonin < 0.04 TSH Free T4 Blood Type - Other Studies Radiology: [] reviewed Other Studies: [] Route of nutrition/ use of supplements: [] Nutritional Intake: [] IV Site: [] Kelly Catheter: [] - Physical Exam General: Alert, Oriented x3, Cooperative HEENT: Atraumatic, PERRLA, EOMI Neck: Supple, No Nodes Lungs: Diminished Cardiovascular: Regular rate, Regular Rhythm Abdomen: Soft, Non Tender, Non-Distended Extremities: No edema Skin: No rashes IV Site: Peripheral, without redness Musculoskeletal: No Tenderness to Palpation of Joints or Extremities Neurological: Cranial nerves II-XII grossly intact - Assessment/Plan Antibiotics: [] Assessment/Plan: [] Active and Suspected Problems (Last Reviewed 03/30/18 @ 15:21 by Makenzie Avery) Acute hypoxemic respiratory failure due to COVID-19 (Acute) Sepsis (Acute) covid - on 15L. On dex po, lovenox 40mg bid. Will stop azithro and ceftriaxone. PCT was neg. No sputum. Wbc normal. Reviewed EUA and risks/benefits of convalescent plasma, will start and she gave verbal consent. Will start remdesivir. Recommend her use her pulse ox at home and monitor sx. Will follow, thank you
--- NOTE | 2020-05-21 18:39 | PN_ITS ---
Patient Problems: Active and Suspected Problems (Last Reviewed 03/30/18 @ 15:21 by Makenzie Avery) Acute hypoxemic respiratory failure due to COVID-19 (Acute) Sepsis (Acute) Subjective: Patient was seen and examined today, she is still on high flow oxygen via Ventimask. Patient states she has a history of asthma as an outpatient, she states her may have the same illness but she cannot get him to go to the hospital. Patient states that she does not want to be placed on BiPAP. Infectious diseases saw the patient today and added convalescent plasma and remdesivir. Infectious diseases stopped her bacterial antibiotics. - Physical Exam Vitals/I&O's: Vital Signs Temp Pulse Resp BP Pulse Ox 97.5 F L 79 18 125/69 H 90 05/21/20 17:22 05/21/20 17:22 05/21/20 17:22 05/21/20 17:22 05/21/20 17:22 Oxygen Flow Rate (L/min) 15 Oxygen Delivery Method Non-Rebreather Weight: 88.5 kg Body Mass Index (BMI) 35.6 Intake and Output for Last 24 Hours 05/19/20 05/20/20 05/21/20 23:59 23:59 23:59 Intake Total 805 / 805 2393.75 / 2393.75 Balance 805 / 805 2393.75 / 2393.75 General: Alert, Oriented x3, Cooperative, No apparent distress, Well developed HEENT: Atraumatic, PERRLA, EOMI, Normocephalic Oral: Moist Mucosa Neck: Supple, No JVD, Trachea Midline, Thyroid Normal Size and Texture Lungs: Clear to auscultation, No rhonchi, No wheeze, Diminished Cardiovascular: Regular rate, Regular Rhythm, Normal S1, Normal S2, No murmurs, PMI Normal, No rub noted, No Gallop Abdomen: Bowel Sounds Present, Soft, Non Tender Extremities: No clubbing, No cyanosis, No edema, Capillary Refill Less than 3 Seconds Skin: No rashes, No breakdown Musculoskeletal: No Tenderness to Palpation of Joints or Extremities Neurological: Cranial nerves II-XII grossly intact, Neuro grossly intact, Sensory exam intact to light touch and pain, Coordination normal Psych/Mental Status: Normal Affect, Appropriate, Alert and oriented to time, place, person, mood and affect Microbiology Past 72 Hours 05/21/20 05:30 Sputum, Expectorated/Coughed Gram Stain - Final 05/21/20 01:22 Mucosa - Nasopharyngeal Respiratory Panel (PCR) - Final 05/21/20 00:05 Urine, Random Legionella Antigen - Final 05/21/20 00:05 Urine, Random Streptococcus pneumoniae Antigen (M - Final Laboratory Results 05/20/20 17:55: D-Dimer Quant (PE/DVT) 0.63 H* 05/20/20 17:55: Sodium 135 L, Potassium 4.2, Chloride 100, Carbon Dioxide 28.0, Anion Gap 7, BUN 22 H, Creatinine 0.94, Estim Creat Clear Calc 42.79, Est GFR (MDRD) Af Amer 75, Est GFR (MDRD) Non-Af 62, BUN/Creatinine Ratio 23.5 H, Glucose 177 H, Calcium 8.7, Total Bilirubin 0.50, AST 22, ALT 23, Alkaline Phosphatase 87, Lactate Dehydrogenase 347 H, Total Creatine Kinase 83, Troponin I < 0.015, C-React Prot Ext Range 70.00 H, Total Protein 7.0, Albumin 3.1 L, Globulin 3.9, Albumin/Globulin Ratio 0.8 L 05/20/20 17:55: B-Natriuretic Peptide 24.1 05/20/20 17:55: Procalcitonin < 0.04 05/20/20 17:55: Lactic Acid 2.0 05/20/20 17:55: Magnesium 2.0 05/20/20 22:30: Lactic Acid 1.3 05/21/20 07:06: Blood Type O POSITIVE 05/21/20 07:15: WBC 3.0 L, RBC 4.73, Hgb 13.8, Hct 42.6, MCV 90.1, MCH 29.2, MCHC 32.4, RDW Std Deviation 44.2 H, RDW Coeff of Dany 13.3, Plt Count 146 L, MPV 10.5, Immature Gran % (Auto) 0.300, Neut % (Auto) 77.0 H, Lymph % (Auto) 15.9 L, [place] % (Auto) 6.8, Eos % (Auto) 0.0, Baso % (Auto) 0.0, Absolute Neuts (auto) 2.3, Absolute Lymphs (auto) 0.47 L, Nucleated RBC % 0, Differential Comment SCANNED, Diff Path Review November foll 05/21/20 07:15: D-Dimer Quant (PE/DVT) 0.36 05/21/20 07:15: Sodium 137, Potassium 4.4, Chloride 105, Carbon Dioxide 25.0, Anion Gap 7, BUN 21 H, Creatinine 0.79, Estim Creat Clear Calc 40.22, Est GFR (MDRD) Af Amer 92, Est GFR (MDRD) Non-Af 76, BUN/Creatinine Ratio 26.6 H, Glucose 235 H, Calcium 8.1 L, Ferritin 363 H, Total Bilirubin 0.40, AST 22, ALT 21, Alkaline Phosphatase 79, Troponin I < 0.015, C-React Prot Ext Range 79.20 H, Total Protein 6.3 L, Albumin 2.6 L, Globulin 3.7, Albumin/Globulin Ratio 0.7 L, TSH 0.10 L, Free T4 1.25 05/21/20 07:15: Procalcitonin < 0.04 Current Medications Acetaminophen (Acetaminophen 325 Mg Tablet) 650 mg PO Q6H PRN PRN PRN Reason: Pain Score 1-10/Temp > 100.7 F Last Admin: 05/21/20 10:28 Dose: 650 mg Documented by: Al Hydroxide/Mg Hydroxide (Mag Hydrox/Al Hydrox/Simeth 30 Ml Udc) 30 ml PO Q6H PRN PRN PRN Reason: Gastric Burning Albuterol Sulfate (Albuterol Sulfate 8 Gm Inhaler (60 Puffs)) 2 puff INHALATION Q4H PRN PRN PRN Reason: SOB, WHEEZING Aspirin (Aspirin 81 Mg Tab.Chew) 81 mg PO DAILY@0800 [facility] Last Admin: 05/21/20 08:41 Dose: 81 mg Documented by: Carvedilol (Carvedilol 3.125 Mg Tablet) 3.125 mg PO DAILY [facility] Last Admin: 05/21/20 10:29 Dose: 3.125 mg Documented by: Dexamethasone (Dexamethasone 4 Mg Tablet) 6 mg PO DAILY@0800 [facility] Last Admin: 05/21/20 09:47 Dose: 6 mg Documented by: Enoxaparin Sodium (Enoxaparin 40 Mg/0.4 Ml Syringe) 40 mg SC BID [facility] Last Admin: 05/21/20 08:41 Dose: 40 mg Documented by: Guaifenesin (Guaifenesin 10 Ml Udc (200mg/10ml)) 10 ml PO Q4H PRN PRN PRN Reason: COUGH Sodium Chloride () 250 mls @ 15 mls/hr IV .[id number] PRN PRN Reason: Saline Flush Last Infusion: 05/21/20 17:27 Dose: 15 mls/hr Documented by: Sodium Chloride () 250 mls @ 15 mls/hr IV .[id number] PRN PRN Reason: Additional IVPB Infusion Remdesivir 100 mg/ Sodium (Chloride) 250 mls @ 125 mls/hr IV DAILY BRITTANY; Protocol Stop: 05/25/20 11:59 Magnesium Hydroxide (Magnesium Hydroxide 30 Ml Udc) 30 ml PO DAILY PRN PRN PRN Reason: Constipation Melatonin (Melatonin 3 Mg Tablet) 3 mg PO QHS PRN PRN PRN Reason: INSOMNIA Miscellaneous Information (Inhaler, Assist Devices 1 Each Spacer) 1 each INHALATION PRN PRN PRN Reason: WITH AIRDUO MDI Ondansetron HCl (Ondansetron 4 Mg/2 Ml Vial) 4 mg IV Q8H PRN PRN PRN Reason: NAUSEA/VOMITING Pantoprazole Sodium (Pantoprazole Sodium 40 Mg Tablet) 40 mg PO DAILY PRN PRN PRN Reason: gerd Fluticasone/Salmeterol (Fluticasone/Salmeterol 232-14 Inhaler) 1 puff IH BID [facility] Last Admin: 05/21/20 08:39 Dose: 1 puff Documented by: Senna/Docusate Sodium (Senna/Docusate Sodium 1 Tablet) 2 tablet PO BID PRN PRN Reason: Constipation Sodium Chloride (0.9% Saline Lock 10 Ml Syringe) 10 - 40 ml IV UD PRN PRN Reason: SALINE FLUSH Last Admin: 05/21/20 15:27 Dose: 10 ml Documented by: Throat Lozenges (Benzocaine/Menthol 1 Lozenge) 1 lozenge MUCOUS MEM Q2H PRN PRN PRN Reason: SORE THROAT Thyroid (Thyroid 60 Mg Tablet) 120 mg PO DAILY BRITTANY Last Admin: 05/21/20 12:33 Dose: 120 mg Documented by: Umeclidinium [place] (Umeclidinium [place] Inhaler) 1 puff IH DAILY BRITTANY Last Admin: 05/21/20 09:47 Dose: 1 puff Documented by: Medical Necessity - Tobacco Use Smoking Status: Former smoker - Patient quit remotely but cannot give exact timeline, notes she smoked approximately 1 pack weekly but was unclear. Tobacco Use: Non-smoker Assessment/Plan All Active Problems (Last Reviewed 03/30/18 @ 15:21 by Makenzie Avery) Acute hypoxemic respiratory failure due to COVID-19 (Acute) Sepsis (Acute) Hx of diverticulitis of colon (Acute) Shortness of breath (Acute) Chest pain (Acute) Closed right ankle fracture (Acute) Acute respiratory failure with hypoxemia (Resolved) Hypokalemia (Resolved) #1 acute hypoxemic respiratory failure secondary to Covid 19 pneumonia-patient's oxygen sat will be monitored, I have ordered a long-acting muscarinic agonist today to the patient's medical regimen #2 COVID-19 pneumonia-infectious diseases is seeing the patient, she will be given remdesivir, dexamethasone, and convalescent plasma. #3 asthma-chronic, patient is not on oxygen at home #4 essential hypertension #5 hyperlipidemia #6 elevated glucose secondary to corticosteroid administration Inpatient E&M: 72435 Subs Hosp L2
[2020-05-21] MEDS: Ondansetron 4 MG/2 ML Vial IV (20:12)
[2020-05-21] MEDS: LORazepam 2 MG/ML Syringe 0.5 MG IV (21:44)
--- NOTE | 2020-05-21 23:52 | NURSING ---
Pt daughter (Rachana) notified at this time that pt is being transitioned to the Intensive Care Unit and that pt was transitioned to a Full Code.
[2020-05-22] VITALS (71 sets, daily range): BP systolic 48–190; BP diastolic 27–130; PULSE 56–110; RESP 12–38; TEMP 36.8–40.1; O2SAT 82–99; BMI 36.1
--- NOTE | 2020-05-22 00:29 | NURSING ---
After telephone report called to Susan Arceo RN, pt transported via this RN, Eddi Burns, ELECTRICAL MECHANIC, and Jeannette Andrade, DISPLAY MAKER to ICU 3.
--- NOTE | 2020-05-22 01:30 | NURSING ---
in depth conversation regarding convalescent plasma, handout reviewed, pt is oriented and refused plasma at this time. aware.
[2020-05-22] MEDS: LORazepam 2 MG/ML Syringe 1 MG IV (01:49)
--- NOTE | 2020-05-22 03:15 | NURSING ---
Dr Brito at bedside, preparing to intubate patient at this time. 03:15- Etomidate and versed pushed 0317- propofol@10mcg/kg/min started 0318- ETT placed at this time. 0326-Fentanyl@25mcg/kg/hr started
[2020-05-22] MEDS: Midazolam 2 MG/2 ML Syringe IV (03:17)
[2020-05-22] MEDS: Etomidate 20 MG/10 ML Vial IV (03:17)
[2020-05-22] MEDS: Propofol 10MG/Ml 1,000 MG/100 ML Bottle 5.4 MG CONT INF (03:20)
--- NOTE | 2020-05-22 03:29 | PCM.HOSP.N ---
Hospitalist Note Patient daughter and herself discussed CODE STATUS and approximately 00:29 patient decision to allow intubation given intolerance of BiPAP and air Vo if necessary. CODE STATUS changed to full code. Given patient ongoing difficulties with toleration of BiPAP transition to ICU with Precedex trial attempt which unfortunately was unsuccessful. Given ongoing hypoxia, tachycardia, hypotension development and encephalopathy decision to intubate. Intubation Note: Medications administered: Versed 2 mg, etomidate 20 mg ETT size: 7.5 Patient intubated in standard fashion with visualization of the vocal cords and passage of the ETT. Positioning verified with auscultation and color change. Transitioned off Precedex to propofol and fentanyl with propofol bolus given as patient initially difficult to bag prior to transition to vent. In addition given MAP less than 65 will initiate pressor therapy. Transiently patient with severe coughing fits with desaturations to low 80s with slow recovery. CXR with ETT appropriate placed. Ordered nibex push and drip and while awaiting maximized sedation with propofol and fentanyl. Patient eventually had resolution of these transient phases thus deferred paralysis. Will obtain ABG in 1 hour per discussion with RT. Will maintain on scheduled ATC duoneb. Family updated on events (Rachana Hogue). Family also gave permission to administer convalescent plasma. Procedures: 39020 Insert Emergency Airway
--- NOTE | 2020-05-22 03:30 | RAD_ITS ---
STUDY: X-RAY CHEST REASON FOR EXAM: Female, 74 years old. ET AND OG TUBE PLACEMENTS TECHNIQUE: Single AP portable view x 2 of the chest. COMPARISON: May 20, 2020 chest x-ray FINDINGS: Endotracheal tube is present 1.7 cm above the jac. NG tube is present the tip is in the stomach. There is a persistent pattern of interstitial infiltrates ground glass opacity. There is no demonstrated pleural abnormality. Normal size heart. Normal mediastinum and hetal. Normal visualized pulmonary arteries. There is atherosclerotic calcification of the aortic arch with tortuosity. There are diffuse degenerative changes of the visualized thoracic spine. Normal visualized ribs, clavicles, and shoulders. There is no demonstrated abnormality of the visualized soft tissue structures of the upper abdomen. RAD/Chest 1 View (Portable) IMPRESSION: Findings are suspicious for underlying chronic lung disease with possible superimposed infiltrates. Lines as detailed above. Electronically Signed: Rosemary Rodriguez MD at 4:52 EST Tel , Service support ,
--- NOTE | 2020-05-22 03:30 | NURSING ---
[address]White moore
--- NOTE | 2020-05-22 04:22 | NURSING ---
cooling blanket placed
[2020-05-22 04:39] LABS: CPK Total, Creatine Kinase 70 U/L (26-192); Triglycerides 149 mg/dL
--- NOTE | 2020-05-22 04:47 | NURSING ---
Dr. Brito at bedside for central line placement.
--- NOTE | 2020-05-22 05:02 | RAD_ITS ---
STUDY: X-RAY CHEST REASON FOR EXAM: Female, 74 years old. LINE PLACEMENT TECHNIQUE: Single AP portable view of the chest. COMPARISON: May 22, 2020 chest x-ray FINDINGS: There is an endotracheal tube present 1.8 cm above the jac. An NG tube is present the tip is in the stomach. There is a right internal jugular venous line tip is in the atriocaval junction slightly deep to be pulled back 1 to 2 cm. There is a pattern of increased interstitial markings in the lungs with predominance in the right lower lobe. There is slightly improved aeration of the upper lung zones. There is no demonstrated pleural abnormality. Normal size heart. Normal mediastinum and hetal. Normal visualized pulmonary arteries. There is atherosclerotic calcification of the aortic arch with tortuosity. There are diffuse degenerative changes of the visualized thoracic spine. Normal visualized ribs, clavicles, and shoulders. There is no demonstrated abnormality of the visualized soft tissue structures of the upper abdomen. RAD/CXR for Line Placement IMPRESSION: Improvement in the upper lung zone interstitial infiltrates. There is persistent right greater than left lower lobe infiltrates. Endotracheal tube is 1.6 cm above the jac. Could Pull back 1 cm. Electronically Signed: Rosemary Rodriguez MD at 5:55 EST Tel , Service support ,
--- NOTE | 2020-05-22 05:04 | NURSING ---
Dr Brito at bedside @0445, to place a central line. Prepped patient at 0455 and line was placed at 0502, and chest x ray was ordered for placement conformation at this time. Central line was place in the RIJ.
[2020-05-22] MEDS: Propofol 10MG/Ml 1,000 MG/100 ML Bottle 26.9 MG CONT INF (05:13)
--- NOTE | 2020-05-22 05:14 | PCM.HOSP.N ---
Hospitalist Note Central line note: Patient with onset recurrent hypotension despite recent pressor therapy initiation with MAP not maintaining greater than 65 therefore given need for increased pressor therapy decision for placement of central line. Family (Rachana) gave consent obtained for placement of central line if necessary earlier in the morning when updated on her mothers status and intubation. Region prepped and draped in standard fashion. US guidance used to obtain access, guidewire threaded without issue, central line catheter placed over guidewire and wire removed w/ cap placed. Lines again drawn and flushed without difficulty. Central line sutured in place. CXR ordered. Procedures: 24080 Insert Non-tunnel CV Cath
[2020-05-22 05:36] LABS: Allen Test Positive; Base Excess 3 mmol/L (-2 to +2); Bicarbonate 29.1 mmol/L (22-26); Blood Gas Specimen Type ART; FI02 100; Mode AC; O2 Delivery Device Adult Vent; PEEP 12; PO2 54 mmHG (75-100); RR 14; SITE L Radial; SO2 83 % (95-99); Total Carbon Dioxide 31 mmol/L; Vt 450
[2020-05-22 06:12] LABS: Hematocrit 41.9 % (37-47); Hemoglobin 13.2 g/dL (12.0-15.0); Mean Corp Hgb Conc 31.5 g/dL (32-36); Mean Corpuscular Hgb 28.7 pg (27.0-32.0); Mean Corpuscular Volume 91.1 fL (81-99); Mean Platelet Vol. 11.2 fl (6.2-12.0); Platelet Count 225 K/mm3 (150-450); RBC Distribution Width CV 13.5 % (11.6-14.6); RBC Distribution Width SD 45.6 fl (35.1-43.9); White Blood Count 10.3 K/mm3 (4.4-11.0)
--- NOTE | 2020-05-22 06:12 | CON.PCM_ITS ---
Reason for Consult Date of Consultation: 05/22/20 Reason for Consultation: Acute combined respiratory failure History of Present Illness: The patient is a 74-year-old female, with a history as outlined below, who initially presented to the emergency department on May 20 with complaints of shortness of breath. The patient also reported associated symptoms including headache, nonproductive cough, myalgias and diarrhea. The patient's symptoms had been present for approximately 10 days. The patient does have an apparent history of bilateral PE and DVT along with asthma/COPD and former tobacco dependency. On presentation to the emergency department, the patient was noted to be febrile with a temperature of 102 ?F. She was also noted to be tachypneic and saturating 85% on room air. Laboratory evaluation revealed a normal white blood cell count. D-dimer was only mildly elevated to 0.63. Chemistry profile was largely unremarkable. Lactate was within normal limits. Troponin was negative. Procalcitonin was unremarkable. CTA chest showed no evidence of pulmonary embolism. Bilateral interstitial infiltrates were noted. The patient did receive IV fluids, antimicrobials and Decadron. The patient was initially admitted to the progressive care unit for further management. The patient was subsequently seen in consultation by infectious diseases. Orders were apparently placed for remdesivir and convalescent plasma. The patient decompensated from a respiratory perspective over the course of the evening on May 21 and into the loss prevention specialist hours of May 22. The patient was transferred from the PCU to the medical intensive care unit, where attempts to utilize noninvasive positive pressure ventilatory support were undertaken. The patient had a great deal of difficulty tolerating the BiPAP, despite the use of sedating medications to help improve compliance. Therefore, the decision was made to proceed with intubation. The patient also went on to develop hypotension, which required the placement of a triple-lumen catheter and initiation of vasopressor support. Per the overnight nursing report, a conversation was undertaken with the patient regarding the risks and benefits of convalescent plasma, and prior to her intubation, the patient stated that she did not want to receive the infusion. Therefore, the patient has yet to receive convalescent plasma. She is currently sedated on both propofol and fentanyl and is requiring Levophed at 10 mcg/min to maintain hemodynamic stability. Past Medical History Past Medical History (Chronic Problems): Chronic Problems (Last Reviewed 03/30/18 @ 15:21 by Makenzie Avery) Allergic rhinitis (Chronic) Vitamin D deficiency (Chronic) GERD (gastroesophageal reflux disease) (Chronic) DVT, bilateral lower limbs (Chronic) Bilateral pulmonary embolism (Chronic) Ankle fracture, right (Chronic) COPD (chronic obstructive pulmonary disease) (Chronic) Takotsubo cardiomyopathy (Chronic) HTN (hypertension) (Chronic) Status post open reduction with internal fixation (ORIF) of fracture of ankle (Chronic) Avulsion fracture of ankle (Chronic) Hypothyroid (Chronic) Medical History: Medical History (Last Reviewed 03/30/18 @ 15:21 by Makenzie Avery) Hx of diverticulitis of colon (Acute) Z87.19 Allergic rhinitis (Chronic) J30.9 Vitamin D deficiency (Chronic) E55.9 GERD (gastroesophageal reflux disease) (Chronic) K21.9 DVT, bilateral lower limbs (Chronic) I82.403 Shortness of breath (Acute) R06.02 Chest pain (Acute) R07.9 Bilateral pulmonary embolism (Chronic) I26.99 Ankle fracture, right (Chronic) S82.891A COPD (chronic obstructive pulmonary disease) (Chronic) J44.9 Takotsubo cardiomyopathy (Chronic) I51.81 HTN (hypertension) (Chronic) I10 Avulsion fracture of ankle (Chronic) S82.899A Hypothyroid (Chronic) E03.9 Closed right ankle fracture (Acute) S82.891A Allergies chlorhexidine Allergy (Verified 05/20/20 17:34) Itching codeine Allergy (Verified 05/20/20 17:34) Itching oxycodone Adverse Reaction (Verified 05/20/20 17:34) Upset Stomach adhesive tape Allergy (Mild, Uncoded 05/20/20 17:34) Unknown Home Medications: Ambulatory Orders Medication Instructions Recorded Ergocalciferol [Vitamin D] 50,000 unit PO BARBA 11/02/13 Minocycline HCl [Minocin] 50 mg PO DAILY 10/28/17 Loratadine 10 mg PO DAILY 12/23/17 Ascorbic Acid [Vitamin C] 500 mg PO DAILY 04/02/19 Biotin 1 cap PO DAILY 04/02/19 Omeprazole 40 mg PO DAILY PRN PRN 04/02/19 Fluticasone Propion/Salmeterol 1 puff INHALATION BID 05/20/20 [[place]ela 250-50 Inhub] Prednisone See Taper PO DAILY 05/20/20 Carvedilol 3.125 mg PO DAILY 05/21/20 Thyroid,Pork [[place] Thyroid] 120 mg PO DAILY 05/21/20 Surgical History: Surgical History (Last Reviewed 03/30/18 @ 15:21 by Makenzie Avery) Status post open reduction with internal fixation (ORIF) of fracture of ankle (Chronic) Z96.7, Z87.81 H/O carpal tunnel repair Z98.890 right H/O eye surgery Z98.890 H/O: hysterectomy Z90.710 S/P appendectomy Z90.49 S/P foot surgery, left Z98.890 S/P foot surgery, right Z98.890 S/P tonsillectomy Z90.89 Surgical History: adenoidectomy, total knee arthroplasty, - - Colectomy, hysterectomy, appendectomy, carpal tunnel surgery, bilateral foot surgery and ankle surgery, right total knee replacement, left partial knee replacement. 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 Tobacco Use: Non-smoker Alcohol: None Drugs: None - *Family History Maternal Family History: Family History (Last Reviewed 03/30/18 @ 15:21 by Makenzie Avery) Mother Asthma Cancer Brother Cancer Diabetes Sister Cancer Diabetes Father Thyroid disorder History Items: Cancer, Heart Disease Paternal Family History: Family History (Last Reviewed 03/30/18 @ 15:21 by Makenzie Avery) Mother Asthma Cancer Brother Cancer Diabetes Sister Cancer Diabetes Father Thyroid disorder History Items: Pulmonary Disease Sibling Family History: Family History (Last Reviewed 03/30/18 @ 15:21 by Makenzie Avery) Mother Asthma Cancer Brother Cancer Diabetes Sister Cancer Diabetes Father Thyroid disorder History Items: Diabetes, Heart Disease, Hypertension Review of Systems Unable to obtain accurate/complete ROS d/t: Due to current intubation and mechanical ventilation status Patient Problems: Active and Suspected Problems (Last Reviewed 03/30/18 @ 15:21 by Makenzie Avery) Acute hypoxemic respiratory failure due to COVID-19 (Acute) Sepsis (Acute) Objective: The patient's most recent lab work, culture data and imaging studies have all been personally reviewed. Surface echocardiogram from 2017 revealed normal LV size and function with an ejection fraction of 60%. The RV was noted to be moderate lead to severely dilated with moderate severe global RV systolic dysfunction and a pulmonary artery systolic pressure estimated to be 31 mmHg. Coronavirus PCR was positive on May 16. Sputum, blood and urine cultures are pending. - Physical Exam Vitals/I&O's: Vital Signs Temp Pulse Resp BP Pulse Ox 104.2 F H 72 23 H 153/65 H 94 05/22/20 05:00 05/22/20 05:00 05/22/20 05:00 05/22/20 05:30 05/22/20 05:00 Oxygen Flow Rate (L/min) 100 Oxygen Delivery Method Mechanical Ventilator Weight: 197 lb 8.547 oz Body Mass Index (BMI) 35.6 Intake and Output for Last 24 Hours 05/20/20 05/21/20 05/22/20 23:59 23:59 23:59 Intake Total 805 / 805 2952.50 / 2952.50 114.65 / 114.65 Output Total 0 / 0 Balance 805 / 805 2952.50 / 2952.50 84.65 / 84.65 General: - - Intubated, sedated and mechanically ventilated. HEENT: Atraumatic, Normocephalic Oral: No Gingival or Mucosal Lesions/ Ulcerations, - - Endotracheal and OG tubes in place Neck: Supple, No Nodes, Trachea Midline, - - Right IJ central venous catheter in place Lungs: - - Coarse mechanical breath sounds bilaterally Cardiovascular: Regular rate, Regular Rhythm, - - Occasional ectopy noted Abdomen: Bowel Sounds Present, Soft, Non Tender, Obese Extremities: No clubbing, No cyanosis, No edema Skin: No breakdown Musculoskeletal: No Muscle Wasting Lymphatic: No Cervical, Supraclavicular, or Inguinal Adenopathy Neurological: - - No focal neurological deficits. Currently sedated on the ventilator. Labs (Last 48 Hours) 05/20/20 05/20/20 05/20/20 17:55 17:55 17:55 WBC RBC Hgb Hct MCV MCH MCHC RDW Std Deviation RDW Coeff of Dany Plt Count MPV Immature Gran % (Auto) Neut % (Auto) Lymph % (Auto) Luna % (Auto) Eos % (Auto) Baso % (Auto) Absolute Neuts (auto) Absolute Lymphs (auto) Nucleated RBC % Differential Comment Diff Path Review Fibrinogen 631 H D-Dimer Quant (PE/DVT) 0.63 H* Specimen Type Sample Site pH Bicarbonate Actual Total CO2 Base Excess O2 Saturation O2 % ABG pCO2 ABG pO2 Nirav Test Respiration Rate O2 Delivery Device Vent Mode Tidal Volume POC PEEP Sodium 135 L Potassium 4.2 Chloride 100 Carbon Dioxide 28.0 Anion Gap 7 BUN 22 H Creatinine 0.94 Estim Creat Clear Calc 42.79 Est GFR (MDRD) Af Amer 75 Est GFR (MDRD) Non-Af 62 BUN/Creatinine Ratio 23.5 H Glucose 177 H Lactic Acid Calcium 8.7 Magnesium Ferritin Total Bilirubin 0.50 AST 22 ALT 23 Alkaline Phosphatase 87 Lactate Dehydrogenase 347 H Total Creatine Kinase 83 Troponin I < 0.015 C-React Prot Ext Range 70.00 H B-Natriuretic Peptide 24.1 Total Protein 7.0 Albumin 3.1 L Globulin 3.9 Albumin/Globulin Ratio 0.8 L Triglycerides Procalcitonin TSH Free T4 Blood Type 05/20/20 05/20/20 05/20/20 17:55 17:55 17:55 WBC 4.7 RBC 5.44 H Hgb 15.4 H Hct 48.0 H MCV 88.2 MCH 28.3 MCHC 32.1 RDW Std Deviation 43.5 RDW Coeff of Dany 13.5 Plt Count 161 MPV 10.9 Immature Gran % (Auto) 0.400 Neut % (Auto) 78.6 H Lymph % (Auto) 13.5 L Luna % (Auto) 7.5 Eos % (Auto) 0.0 Baso % (Auto) 0.0 Absolute Neuts (auto) 3.7 Absolute Lymphs (auto) 0.63 L Nucleated RBC % 0 Differential Comment Diff Path Review Fibrinogen D-Dimer Quant (PE/DVT) Specimen Type Sample Site pH Bicarbonate Actual Total CO2 Base Excess O2 Saturation O2 % ABG pCO2 ABG pO2 Nirav Test Respiration Rate O2 Delivery Device Vent Mode Tidal Volume POC PEEP Sodium Potassium Chloride Carbon Dioxide Anion Gap BUN Creatinine Estim Creat Clear Calc Est GFR (MDRD) Af Amer Est GFR (MDRD) Non-Af BUN/Creatinine Ratio Glucose Lactic Acid 2.0 Calcium Magnesium Ferritin Total Bilirubin AST ALT Alkaline Phosphatase Lactate Dehydrogenase Total Creatine Kinase Troponin I C-React Prot Ext Range B-Natriuretic Peptide Total Protein Albumin Globulin Albumin/Globulin Ratio Triglycerides Procalcitonin < 0.04 TSH Free T4 Blood Type 05/20/20 05/20/20 05/21/20 17:55 22:30 07:06 WBC RBC Hgb Hct MCV MCH MCHC RDW Std Deviation RDW Coeff of Dany Plt Count MPV Immature Gran % (Auto) Neut % (Auto) Lymph % (Auto) Luna % (Auto) Eos % (Auto) Baso % (Auto) Absolute Neuts (auto) Absolute Lymphs (auto) Nucleated RBC % Differential Comment Diff Path Review Fibrinogen D-Dimer Quant (PE/DVT) Specimen Type Sample Site pH Bicarbonate Actual Total CO2 Base Excess O2 Saturation O2 % ABG pCO2 ABG pO2 Nirav Test Respiration Rate O2 Delivery Device Vent Mode Tidal Volume POC PEEP Sodium Potassium Chloride Carbon Dioxide Anion Gap BUN Creatinine Estim Creat Clear Calc Est GFR (MDRD) Af Amer Est GFR (MDRD) Non-Af BUN/Creatinine Ratio Glucose Lactic Acid 1.3 Calcium Magnesium 2.0 Ferritin Total Bilirubin AST ALT Alkaline Phosphatase Lactate Dehydrogenase Total Creatine Kinase Troponin I C-React Prot Ext Range B-Natriuretic Peptide Total Protein Albumin Globulin Albumin/Globulin Ratio Triglycerides Procalcitonin TSH Free T4 Blood Type O POSITIVE 05/21/20 05/21/20 05/21/20 07:15 07:15 07:15 WBC 3.0 L RBC 4.73 Hgb 13.8 Hct 42.6 MCV 90.1 MCH 29.2 MCHC 32.4 RDW Std Deviation 44.2 H RDW Coeff of Dany 13.3 Plt Count 146 L MPV 10.5 Immature Gran % (Auto) 0.300 Neut % (Auto) 77.0 H Lymph % (Auto) 15.9 L Luna % (Auto) 6.8 Eos % (Auto) 0.0 Baso % (Auto) 0.0 Absolute Neuts (auto) 2.3 Absolute Lymphs (auto) 0.47 L Nucleated RBC % 0 Differential Comment SCANNED Diff Path Review May foll Fibrinogen D-Dimer Quant (PE/DVT) 0.36 Specimen Type Sample Site pH Bicarbonate Actual Total CO2 Base Excess O2 Saturation O2 % ABG pCO2 ABG pO2 Nirav Test Respiration Rate O2 Delivery Device Vent Mode Tidal Volume POC PEEP Sodium 137 Potassium 4.4 Chloride 105 Carbon Dioxide 25.0 Anion Gap 7 BUN 21 H Creatinine 0.79 Estim Creat Clear Calc 40.22 Est GFR (MDRD) Af Amer 92 Est GFR (MDRD) Non-Af 76 BUN/Creatinine Ratio 26.6 H Glucose 235 H Lactic Acid Calcium 8.1 L Magnesium Ferritin 363 H Total Bilirubin 0.40 AST 22 ALT 21 Alkaline Phosphatase 79 Lactate Dehydrogenase Total Creatine Kinase Troponin I < 0.015 C-React Prot Ext Range 79.20 H B-Natriuretic Peptide Total Protein 6.3 L Albumin 2.6 L Globulin 3.7 Albumin/Globulin Ratio 0.7 L Triglycerides Procalcitonin TSH 0.10 L Free T4 1.25 Blood Type 05/21/20 05/22/20 05/22/20 07:15 04:10 04:10 WBC 10.3 RBC 4.60 Hgb 13.2 Hct 41.9 MCV 91.1 MCH 28.7 MCHC 31.5 L RDW Std Deviation 45.6 H RDW Coeff of Dany 13.5 Plt Count 225 MPV 11.2 Immature Gran % (Auto) Neut % (Auto) Lymph % (Auto) Luna % (Auto) Eos % (Auto) Baso % (Auto) Absolute Neuts (auto) Absolute Lymphs (auto) Nucleated RBC % Differential Comment Diff Path Review Fibrinogen D-Dimer Quant (PE/DVT) Specimen Type Sample Site pH Bicarbonate Actual Total CO2 Base Excess O2 Saturation O2 % ABG pCO2 ABG pO2 Nirav Test Respiration Rate O2 Delivery Device Vent Mode Tidal Volume POC PEEP Sodium Pending Potassium Pending Chloride Pending Carbon Dioxide Pending Anion Gap Pending BUN Pending Creatinine Pending Estim Creat Clear Calc Est GFR (MDRD) Af Amer Pending Est GFR (MDRD) Non-Af Pending BUN/Creatinine Ratio Pending Glucose Pending Lactic Acid Calcium Pending Magnesium Ferritin Total Bilirubin Pending AST Pending ALT Pending Alkaline Phosphatase Pending Lactate Dehydrogenase Total Creatine Kinase Troponin I C-React Prot Ext Range B-Natriuretic Peptide Total Protein Pending Albumin Pending Globulin Albumin/Globulin Ratio Triglycerides Procalcitonin < 0.04 TSH Free T4 Blood Type 05/22/20 05/22/20 04:10 05:30 WBC RBC Hgb Hct MCV MCH MCHC RDW Std Deviation RDW Coeff of Dany Plt Count MPV Immature Gran % (Auto) Neut % (Auto) Lymph % (Auto) Luna % (Auto) Eos % (Auto) Baso % (Auto) Absolute Neuts (auto) Absolute Lymphs (auto) Nucleated RBC % Differential Comment Diff Path Review Fibrinogen D-Dimer Quant (PE/DVT) Specimen Type ART Sample Site L Radial pH 7.30 L Bicarbonate Actual 29.1 H Total CO2 31 Base Excess 3 H O2 Saturation 83 L O2 % 100 ABG pCO2 59.0 H ABG pO2 54 L Nirav Test Positive Respiration Rate 14 O2 Delivery Device Adult Vent Vent Mode AC Tidal Volume 450 POC PEEP 12 Sodium Potassium Chloride Carbon Dioxide Anion Gap BUN Creatinine Estim Creat Clear Calc Est GFR (MDRD) Af Amer Est GFR (MDRD) Non-Af BUN/Creatinine Ratio Glucose Lactic Acid Calcium Magnesium Ferritin Total Bilirubin AST ALT Alkaline Phosphatase Lactate Dehydrogenase Total Creatine Kinase 70 Troponin I C-React Prot Ext Range B-Natriuretic Peptide Total Protein Albumin Globulin Albumin/Globulin Ratio Triglycerides 149 Procalcitonin TSH Free T4 Blood Type Microbiology 05/21/20 05:30 Sputum, Expectorated/Coughed Gram Stain - Final 05/21/20 01:22 Mucosa - Nasopharyngeal Respiratory Panel (PCR) - Final 05/21/20 00:05 Urine, Random Legionella Antigen - Final 05/21/20 00:05 Urine, Random Streptococcus pneumoniae Antigen (M - Final Clinical Impression(s) from Imaging Studies Chest X-Ray 05/20/20 17:54 IMPRESSION: Bilateral infiltrates Electronically Signed: Eric Zuñiga MD at 19:16 EST , Service support , Chest CTA 05/20/20 19:15 IMPRESSION: Bilateral nonspecific interstitial infiltrates indeterminate for covid 19. COPD and pulmonary fibrosis. Electronically Signed: Eric Zuñiga MD at 19:44 EST , Service support , Chest X-Ray 05/22/20 03:30 IMPRESSION: Findings are suspicious for underlying chronic lung disease with possible superimposed infiltrates. Lines as detailed above. Electronically Signed: Rosemary Rodriguez MD at 4:52 EST Tel , Service support , Chest X-Ray 05/22/20 05:02 IMPRESSION: Improvement in the upper lung zone interstitial infiltrates. There is persistent right greater than left lower lobe infiltrates. Endotracheal tube is 1.6 cm above the jac. Could Pull back 1 cm. Electronically Signed: Rosemary Rodriguez MD at 5:55 EST Tel , Service support , Current Medications Acetaminophen (Acetaminophen 650 Mg/20 Ml Udc) 650 mg GT Q6H PRN PRN PRN Reason: TEMP > 100.5 F Al Hydroxide/Mg Hydroxide (Mag Hydrox/Al Hydrox/Simeth 30 Ml Udc) 30 ml PO Q6H PRN PRN PRN Reason: Gastric Burning Albuterol Sulfate (Albuterol 2.5 Mg/3 Ml Vial.Neb.) 2.5 mg INHALATION Q2H PRN PRN PRN Reason: Dyspnea, wheezing Albuterol/Ipratropium (Ipratropium/Albuterol Sulfate 3 Ml Ampul.Neb) 3 ml INHALATION Q4HWA.RT [facility] Aspirin (Aspirin 81 Mg Tab.Chew) 81 mg PO DAILY@0800 [facility] Last Admin: 05/21/20 08:41 Dose: 81 mg Documented by: Carvedilol (Carvedilol 3.125 Mg Tablet) 3.125 mg PO DAILY [facility] Last Admin: 05/21/20 10:29 Dose: 3.125 mg Documented by: Chlorhexidine Gluconate (Chlorhexidine 15 Ml) 15 ml PO BID [facility] Dexamethasone (Dexamethasone 4 Mg Tablet) 6 mg PO DAILY@0800 [facility] Last Admin: 05/21/20 09:47 Dose: 6 mg Documented by: Enoxaparin Sodium (Enoxaparin 40 Mg/0.4 Ml Syringe) 40 mg SC BID [facility] Last Admin: 05/21/20 19:57 Dose: 40 mg Documented by: Guaifenesin (Guaifenesin 10 Ml Udc (200mg/10ml)) 10 ml PO Q4H PRN PRN PRN Reason: COUGH Sodium Chloride () 250 mls @ 15 mls/hr IV .[id number] PRN PRN Reason: Saline Flush Last Infusion: 05/21/20 18:42 Dose: Infused Documented by: Sodium Chloride () 250 mls @ 15 mls/hr IV .[id number] PRN PRN Reason: Additional IVPB Infusion Remdesivir 100 mg/ Sodium (Chloride) 250 mls @ 125 mls/hr IV DAILY [facility]; Protocol Stop: 05/25/20 11:59 Dexmedetomidine HCl 400 mcg/ (Sodium Chloride) 100 mls @ 11.2 mls/hr CONT INF .Q8H56M [facility]; Protocol Last Titration: 05/22/20 03:30 Dose: 0 mcg/kg/hr, 0 mls/hr Documented by: Propofol (Diprivan) 1,000 mg in 100 mls @ 5.376 mls/hr CONT INF .Q12H [facility]; Protocol Last Admin: 05/22/20 05:13 Dose: 50 mcg/kg/min, 26.9 mls/hr Documented by: Fentanyl Citrate 1,000 mcg/ (Sodium Chloride) 100 mls @ 2.5 mls/hr CONT INF .Q40H [facility]; Protocol Last Titration: 05/22/20 04:45 Dose: 200 mcg/hr, 20 mls/hr Documented by: Norepinephrine Bitartrate 8 mg (/ Sodium Chloride) 250 mls @ 9.375 mls/hr CONT INF .[id number] [facility]; Protocol Last Titration: 05/22/20 05:30 Dose: 10 mcg/min, 18.8 mls/hr Documented by: Cisatracurium Besylate 100 mg/ (Sodium Chloride) 250 mls @ 26.88 mls/hr CONT INF .Q9H19M [facility]; Protocol Last Admin: 05/22/20 04:24 Dose: Not Given Documented by: Lorazepam (Lorazepam 2 Mg/Ml Syringe) 1 mg IV Q4H PRN PRN PRN Reason: anxiety with BIPAP Last Admin: 05/22/20 01:49 Dose: 1 mg Documented by: Magnesium Hydroxide (Magnesium Hydroxide 30 Ml Udc) 30 ml PO DAILY PRN PRN PRN Reason: Constipation Melatonin (Melatonin 3 Mg Tablet) 3 mg PO QHS PRN PRN PRN Reason: INSOMNIA Miscellaneous Information (Inhaler, Assist Devices 1 Each Spacer) 1 each INHALATION PRN PRN PRN Reason: WITH AIRDUO MDI Ondansetron HCl (Ondansetron 4 Mg/2 Ml Vial) 4 mg IV Q8H PRN PRN PRN Reason: NAUSEA/VOMITING Last Admin: 05/21/20 20:12 Dose: 4 mg Documented by: Pantoprazole Sodium (Pantoprazole Sodium 40 Mg Tablet) 40 mg PO DAILY PRN PRN PRN Reason: gerd Fluticasone/Salmeterol (Fluticasone/Salmeterol 232-14 Inhaler) 1 puff IH BID [facility] Last Admin: 05/21/20 20:30 Dose: 1 puff Documented by: Senna/Docusate Sodium (Senna/Docusate Sodium 1 Tablet) 2 tablet PO BID PRN PRN Reason: Constipation Sodium Chloride (0.9% Saline Lock 10 Ml Syringe) 10 - 40 ml IV UD PRN PRN Reason: SALINE FLUSH Last Admin: 05/21/20 21:44 Dose: 10 ml Documented by: Sodium Chloride (Sodium Cl For Inhalation 15 Ml Vial.Neb.) 5 ml INHALATION Q5M PRN PRN Reason: Suctioning Throat Lozenges (Benzocaine/Menthol 1 Lozenge) 1 lozenge MUCOUS MEM Q2H PRN PRN PRN Reason: SORE THROAT Thyroid (Thyroid 60 Mg Tablet) 120 mg PO DAILY [facility] Last Admin: 05/21/20 12:33 Dose: 120 mg Documented by: Umeclidinium [place] (Umeclidinium [place] Inhaler) 1 puff IH DAILY [facility] Last Admin: 05/21/20 09:47 Dose: 1 puff Documented by: Assessment/Plan Active and Suspected Problems (Last Reviewed 03/30/18 @ 15:21 by Makenzie Avery) Acute hypoxemic respiratory failure due to COVID-19 (Acute) Sepsis (Acute) RECOMMENDATIONS: 1. Continue current supportive measures with invasive mechanical ventilatory support and wean FiO2 and PEEP to maintain saturations at or above 90%. 2. Continue remdesivir and Decadron to complete treatment courses. 3. Continue Levophed and wean to maintain a mean arterial pressure at or above 65 mmHg. 4. Obtain nutrition consultation with plans to start tube feeds today. 5. Start Protonix daily and continue Lovenox for ICU prophylaxis. 6. Continue bronchodilator therapy. IMPRESSIONS: 1. Acute combined respiratory failure secondary to COVID-19 pneumonia The patient presented to the hospital with Covid pneumonia and subsequently decompensated from a respiratory perspective requiring intubation. Prior to being intubated, the patient refused convalescent plasma. Therefore, would plan to continue current supportive measures including remdesivir and Decadron as ordered. The patient will be continued on assist control mode of mechanical ventilation with plans to wean FiO2 to maintain oxygen saturations at or above 90%. The patient will be started on tube feeds today. Once the patient's hemodynamics stabilize, we will consider gentle diuresis with IV Lasix. 2. Distributive shock Likely multifactorial with a component of septic shock coupled with hemodynamic compromise induced by sedative medication use. 3. Self-reported history of COPD of unknown severity/history of provoked VTE Given that the patient has a self-reported history of COPD of unknown severity, she will be continued on bronchodilator therapy. CTA chest obtained on admission showed no evidence for pulmonary embolism. Therefore, continue DVT prophylaxis with Lovenox. 4. History of hypertension/hyperlipidemia/hypothyroidism/GERD/prior tobacco dependency Complicates care, management, recovery and prognosis. Hold home antihypertensives. Start appropriate GI prophylaxis. Continue Synthroid. TIME: 42 minutes of critical care time, independent of procedures, was spent addressing the patient's acute combined respiratory failure secondary to COVID- 19 pneumonia, distributive shock, COPD, review of all data and collaboration with the care team. [phone]) [phone] [id number] Critical care first hour
[2020-05-22] MEDS: Acetaminophen 650 MG/20 ML UDC GT (06:13)
[2020-05-22 06:33] LABS: ALB/GLOB Ratio 0.7 RATIO (0.9-2.4); AST(SGOT) 28 U/L (15-37); Alanine Aminotransfer ALT/SGPT 16 U/L (13-56); Albumin, Serum 2.4 g/dL (3.2-5.0); Alkaline Phosphatase 71 U/L (45-117); Anion Gap 5 (5-15); BUN 21 mg/dL (7-18); BUN/Creat Ratio 21.8 RATIO (10-20); Calcium,Total 7.6 mg/dL (8.5-10.1); Chloride 107 mmol/L (98-107); Creatinine, Serum 0.96 mg/dL (0.55-1.02); EST Glomerular Filtration Rate 60 mL/min (>60); Est Glom Filt Rate - Afr Amer 73 mL/min (>60); Estimated Creatinine Clearance 41.89 ml/min; Globulin 3.3 g/dL (2.2-4.2); Glucose 164 mg/dL (74-106); Potassium 3.9 mmol/L (3.5-5.1); Protein, Total 5.7 g/dL (6.4-8.2); Sodium Level 139 mmol/L (136-145)
[2020-05-22] MEDS: Ipratropium/Albuterol Sulfate 3 ML AMPUL.NEB INHALATION ×5 (07:00→22:30)
--- NOTE | 2020-05-22 08:07 | PCM.PROGNOTE ---
Patient Problems: Active and Suspected Problems (Last Reviewed 03/30/18 @ 15:21 by Makenzie Avery) Acute hypoxemic respiratory failure due to COVID-19 (Acute) Sepsis (Acute) Subjective: She was seen and examined today, last night she decompensated and had to be intubated and transferred to the ICU, she changed her mind about wanting no intubation or BiPAP. Patient is currently on pressor agents. Patient is sedated and on the ventilator at this time - Physical Exam Vitals/I&O's: Vital Signs Temp Pulse Resp BP Pulse Ox 102.4 F H 59 L 18 115/61 95 05/22/20 07:00 05/22/20 07:14 05/22/20 07:14 05/22/20 07:00 05/22/20 07:14 Oxygen Flow Rate (L/min) 100 Oxygen Delivery Method Mechanical Ventilator Weight: 89.6 kg Body Mass Index (BMI) 35.6 Intake and Output for Last 24 Hours 05/20/20 05/21/20 05/22/20 23:59 23:59 23:59 Intake Total 805 / 805 2952.50 / 2952.50 285.99 / 285.99 Output Total 0 / 0 30 / 30 Balance 805 / 805 2952.50 / 2952.50 255.99 / 255.99 General: No apparent distress, Well developed HEENT: Atraumatic, PERRLA, Normocephalic Oral: Moist Mucosa Neck: Supple, No JVD, Trachea Midline, Thyroid Normal Size and Texture Lungs: Normal air movement, Rhonchi - Expiratory rhonchi are scattered bilaterally Cardiovascular: Regular rate, Regular Rhythm, Normal S1, Normal S2, No murmurs, PMI Normal, No rub noted Abdomen: Bowel Sounds Present, Soft, Non Tender, Non-Distended, No hernias noted Extremities: No clubbing, No cyanosis, No edema, Capillary Refill Less than 3 Seconds Skin: No rashes, No breakdown Musculoskeletal: No Tenderness to Palpation of Joints or Extremities Neurological: Cranial nerves II-XII grossly intact, Neuro grossly intact, Sensory exam intact to light touch and pain, Coordination normal Psych/Mental Status: Normal Affect, Appropriate, Alert and oriented to time, place, person, mood and affect Microbiology Past 72 Hours 05/21/20 05:30 Sputum, Expectorated/Coughed Gram Stain - Final 05/21/20 01:22 Mucosa - Nasopharyngeal Respiratory Panel (PCR) - Final 05/21/20 00:05 Urine, Random Legionella Antigen - Final 05/21/20 00:05 Urine, Random Streptococcus pneumoniae Antigen (M - Final Laboratory Results 05/21/20 07:06: Blood Type O POSITIVE 05/21/20 07:15: Differential Comment SCANNED, Diff Path Review November05/21/20 07:15: Sodium 137, Potassium 4.4, Chloride 105, Carbon Dioxide 25.0, Anion Gap 7, BUN 21 H, Creatinine 0.79, Estim Creat Clear Calc 40.22, Est GFR (MDRD) Af Amer 92, Est GFR (MDRD) Non-Af 76, BUN/Creatinine Ratio 26.6 H, Glucose 235 H, Calcium 8.1 L, Ferritin 363 H, Total Bilirubin 0.40, AST 22, ALT 21, Alkaline Phosphatase 79, Troponin I < 0.015, C-React Prot Ext Range 79.20 H, Total Protein 6.3 L, Albumin 2.6 L, Globulin 3.7, Albumin/Globulin Ratio 0.7 L, TSH 0.10 L, Free T4 1.25 05/21/20 07:15: Procalcitonin < 0.04 05/22/20 04:10: WBC 10.3, RBC 4.60, Hgb 13.2, Hct 41.9, MCV 91.1, MCH 28.7, MCHC 31.5 L, RDW Std Deviation 45.6 H, RDW Coeff of Dany 13.5, Plt Count 225, MPV 11.2 05/22/20 04:10: Sodium 139, Potassium 3.9, Chloride 107, Carbon Dioxide 27.0, Anion Gap 5, BUN 21 H, Creatinine 0.96, Estim Creat Clear Calc 41.89, Est GFR (MDRD) Af Amer 73, Est GFR (MDRD) Non-Af 60, BUN/Creatinine Ratio 21.8 H, Glucose 164 H, Calcium 7.6 L, Total Bilirubin 0.50, AST 28, ALT 16, Alkaline Phosphatase 71, Total Protein 5.7 L, Albumin 2.4 L, Globulin 3.3, Albumin/Globulin Ratio 0.7 L 05/22/20 04:10: Total Creatine Kinase 70, Triglycerides 149 11/05/20 05:30: Specimen Type ART, Sample Site L Radial, pH 7.30 L, Bicarbonate Actual 29.1 H, Total CO2 31, Base Excess 3 H, O2 Saturation 83 L, O2 % 100, ABG pCO2 59.0 H, ABG pO2 54 L, Nirav Test Positive, Respiration Rate 14, O2 Delivery Device Adult Vent, Vent Mode AC, Tidal Volume 450, POC PEEP 12 Current Medications Acetaminophen (Acetaminophen 650 Mg/20 Ml Udc) 650 mg GT Q6H PRN PRN PRN Reason: TEMP > 100.5 F Last Admin: 05/22/20 06:13 Dose: 650 mg Documented by: Al Hydroxide/Mg Hydroxide (Mag Hydrox/Al Hydrox/Simeth 30 Ml Udc) 30 ml PO Q6H PRN PRN PRN Reason: Gastric Burning Albuterol Sulfate (Albuterol 2.5 Mg/3 Ml Vial.Neb.) 2.5 mg INHALATION Q2H PRN PRN PRN Reason: Dyspnea, wheezing Albuterol/Ipratropium (Ipratropium/Albuterol Sulfate 3 Ml Ampul.Neb) 3 ml INHALATION Q4HWA.RT [facility] Aspirin (Aspirin 81 Mg Tab.Chew) 81 mg PO DAILY@0800 [facility] Last Admin: 05/21/20 08:41 Dose: 81 mg Documented by: Dexamethasone (Dexamethasone 4 Mg Tablet) 6 mg PO DAILY@0800 [facility] Last Admin: 05/21/20 09:47 Dose: 6 mg Documented by: Enoxaparin Sodium (Enoxaparin 40 Mg/0.4 Ml Syringe) 40 mg SC BID [facility] Last Admin: 05/21/20 19:57 Dose: 40 mg Documented by: Sodium Chloride () 250 mls @ 15 mls/hr IV .[id number] PRN PRN Reason: Saline Flush Last Infusion: 05/21/20 18:42 Dose: Infused Documented by: Sodium Chloride () 250 mls @ 15 mls/hr IV .[id number] PRN PRN Reason: Additional IVPB Infusion Remdesivir 100 mg/ Sodium (Chloride) 250 mls @ 125 mls/hr IV DAILY [facility]; Protocol Stop: 05/25/20 11:59 Propofol (Diprivan) 1,000 mg in 100 mls @ 5.376 mls/hr CONT INF .Q12H [facility]; Protocol Last Titration: 05/22/20 07:45 Dose: 45 mcg/kg/min, 24.2 mls/hr Documented by: Fentanyl Citrate 1,000 mcg/ (Sodium Chloride) 100 mls @ 2.5 mls/hr CONT INF .Q40H [facility]; Protocol Last Titration: 05/22/20 07:00 Dose: 200 mcg/hr, 20 mls/hr Documented by: Norepinephrine Bitartrate 8 mg (/ Sodium Chloride) 250 mls @ 9.375 mls/hr CONT INF .[id number] [facility]; Protocol Last Titration: 05/22/20 07:00 Dose: 10 mcg/min, 18.8 mls/hr Documented by: Magnesium Hydroxide (Magnesium Hydroxide 30 Ml Udc) 30 ml PO DAILY PRN PRN PRN Reason: Constipation Miscellaneous Information (Inhaler, Assist Devices 1 Each Spacer) 1 each INHALATION PRN PRN PRN Reason: WITH AIRDUO MDI Pantoprazole Sodium (Pantoprazole Sodium 40 Mg Tablet) 40 mg PO DAILY [facility] Fluticasone/Salmeterol (Fluticasone/Salmeterol 232-14 Inhaler) 1 puff IH BID [facility] Last Admin: 05/21/20 20:30 Dose: 1 puff Documented by: Senna/Docusate Sodium (Senna/Docusate Sodium 1 Tablet) 2 tablet PO BID PRN PRN Reason: Constipation Sodium Chloride (0.9% Saline Lock 10 Ml Syringe) 10 - 40 ml IV UD PRN PRN Reason: SALINE FLUSH Last Admin: 05/21/20 21:44 Dose: 10 ml Documented by: Sodium Chloride (Sodium Cl For Inhalation 15 Ml Vial.Neb.) 5 ml INHALATION Q5M PRN PRN Reason: Suctioning Throat Lozenges (Benzocaine/Menthol 1 Lozenge) 1 lozenge MUCOUS MEM Q2H PRN PRN PRN Reason: SORE THROAT Thyroid (Thyroid 60 Mg Tablet) 120 mg PO DAILY [facility] Last Admin: 05/21/20 12:33 Dose: 120 mg Documented by: Umeclidinium [place] (Umeclidinium [place] Inhaler) 1 puff IH DAILY [facility] Last Admin: 05/21/20 09:47 Dose: 1 puff Documented by: Medical Necessity - Tobacco Use Smoking Status: Former smoker - Patient quit remotely but cannot give exact timeline, notes she smoked approximately 1 pack weekly but was unclear. Tobacco Use: Non-smoker Assessment/Plan All Active Problems (Last Reviewed 03/30/18 @ 15:21 by Makenzie Avery) Acute hypoxemic respiratory failure due to COVID-19 (Acute) Sepsis (Acute) Hx of diverticulitis of colon (Acute) Shortness of breath (Acute) Chest pain (Acute) Closed right ankle fracture (Acute) Acute respiratory failure with hypoxemia (Resolved) Hypokalemia (Resolved) #1 acute hypoxemic respiratory failure secondary to Covid 19 pneumonia-patient is now on the ventilator, critical care is seeing patient #2 COVID-19 pneumonia-infectious diseases is seeing the patient, she will remain on medications per infectious diseases #3 septic shock-patient is currently on pressor agents #4 asthma-chronic, patient is not on oxygen at home #5 essential hypertension #6 hyperlipidemia #7 elevated glucose secondary to corticosteroid administration Inpatient E&M: [id number] Subs Hosp L2
[2020-05-22] MEDS: Propofol 10MG/Ml 1,000 MG/100 ML Bottle 21.5 MG CONT INF (09:06)
[2020-05-22] MEDS: Thyroid 60 MG Tablet 120 MG GT (10:47)
[2020-05-22] MEDS: Aspirin 81 MG TAB.CHEW GT (10:47)
[2020-05-22] MEDS: dexAMETHasone 4 MG Tablet 6 MG GT (10:47)
[2020-05-22] MEDS: Enoxaparin 40 MG/0.4 ML Syringe SC ×2 (10:47→20:42)
[2020-05-22] MEDS: 0.9% Saline Lock 10 ML Syringe IV (10:59)
--- NOTE | 2020-05-22 11:13 | NT.THERAPY_ITS ---
Nutrition Therapy Report - History Nutrition Services has been consulted to:: Manage enteral nutrition Current diet / nutrition support order:: regular diet; 240mL ensure clear w/ meals - Anthropometric Measurements Height:: 5 ft 2 in Weight:: 89.6 kg Body Mass Index (BMI):: 36.1 - Relevant Labs Relevant Labs:: WBC 3.0 K/mm3 (4.4-11.0) L 05/21/20 07:15 RBC 5.44 M/mm3 (4.2-5.4) H 05/20/20 17:55 Hgb 15.4 g/dL (12.0-15.0) H 05/20/20 17:55 Hct 48.0 % (37-47) H 05/20/20 17:55 MCHC 31.5 g/dL (32-36) L 05/22/20 04:10 RDW Std Deviation 45.6 fl (35.1-43.9) H 05/22/20 04:10 Plt Count 146 K/mm3 (150-450) L 05/21/20 07:15 Neut % (Auto) 77.0 % (47-70) H 05/21/20 07:15 Lymph % (Auto) 15.9 % (19-41) L 05/21/20 07:15 Absolute Lymphs (auto) 0.47 X10^3/uL (0.83-4.51) L 05/21/20 07:15 Fibrinogen 631 mg/dl (203-444) H 05/20/20 17:55 D-Dimer Quant (PE/DVT) 0.63 FEU/ug/m (0.27-0.49) H* 05/20/20 17:55 Sodium 135 mmol/L (136-145) L 05/20/20 17:55 BUN 21 mg/dL (7-18) H 05/22/20 04:10 BUN/Creatinine Ratio 21.8 RATIO (10-20) H 05/22/20 04:10 Glucose 164 mg/dL (74-106) H 05/22/20 04:10 Calcium 7.6 mg/dL (8.5-10.1) L 05/22/20 04:10 Ferritin 363 ng/mL (8-252) H 05/21/20 07:15 Lactate Dehydrogenase 347 U/L (84-246) H 05/20/20 17:55 C-React Prot Ext Range 79.20 mg/L (0.0-3.0) H 05/21/20 07:15 Total Protein 5.7 g/dL (6.4-8.2) L 05/22/20 04:10 Albumin 2.4 g/dL (3.2-5.0) L 05/22/20 04:10 Albumin/Globulin Ratio 0.7 RATIO (0.9-2.4) L 05/22/20 04:10 TSH 0.10 uIU/mL (0.358-3.74) L 05/21/20 07:15 - Assessment Food / Nutrition-Related History:: Discussed in ICU rounds. Tx from PCU, intubated w/ OGT in place. Wt increase of 1.1kg since last review. Per rounds, OK to start nutrition support this date. - Nutrition Diagnosis Problem / Etiology / Signs & Symptoms (PES):: Pt w/ severe, acute malnutrition related to inadequate energy intake during acute illness as evidenced by 4.9#/2.45% wt loss, estimated PO intake meeting less than 50% of estimated nutritional needs for 5 days [employer]. Evidence of Malnutrition Exists:: Yes Severe PCM:: Acute Illness - Nutrition Intervention Nutrition Prescription:: Re-estimated nutritional needs using the modified [place] [employer] equation (BARBA) 2010 equation- 8394-5969 calories/day, 100-125 g protein/day. - Food / Nutrient Delivery Interventions Summary of nutrition intervention:: Will change to NPO while intubated. Nutrition support ordered, see below. Nutrition support ordered as / adjusted to:: NPO; Vital AF 1.2 at goal rate of 60mL/hour w/ 100mL H2O flush every 4 hours to provide 1728 calories, 108 g protein, and 1767mL total fluid/day. Enteral nutrition support will be provided via gravity bag. Total formula to be administered in 24 hours: 1440mL. Recommend start w/ 120mL for first 4 hours (approx 10 drops/minute, 3 drops per 15 seconds); for next 4 hours recommend 180mL (approx 15 drops/minutes, 4 drops per 15 seconds). Goal rate is 240mL per 4 hours (approx. 20 drops/minute, 5 drops per 15 seconds). - MNT Monitoring Further MNT monitoring and evaluation required?: Yes MNT Follow-up in:: 1-2 days
--- NOTE | 2020-05-22 11:43 | PN.ID_ITS ---
Patient Problems: Active and Suspected Problems (Last Reviewed 03/30/18 @ 15:21 by Makenzie Avery) Acute hypoxemic respiratory failure due to COVID-19 (Acute) Sepsis (Acute) Subjective: Moved to icu, intubated overnight. Fever to 104.1. - Physical Exam Vitals/I&O's: Vital Signs Temp Pulse Resp BP Pulse Ox 100.8 F H 74 22 H 98/51 L 94 05/22/20 08:00 05/22/20 11:30 05/22/20 11:00 05/22/20 11:30 05/22/20 11:00 Oxygen Flow Rate (L/min) 100 Oxygen Delivery Method Mechanical Ventilator Weight: 89.6 kg Body Mass Index (BMI) 36.1 Intake and Output for Last 24 Hours 05/20/20 05/21/20 05/22/20 23:59 23:59 23:59 Intake Total 805 / 805 2952.50 / 2952.50 617.59 / 617.59 Output Total 0 / 0 180 / 180 Balance 805 / 805 2952.50 / 2952.50 437.59 / 437.59 General: No apparent distress, Non-Cooperative Lungs: Diminished Cardiovascular: Regular rate, Regular Rhythm Abdomen: Soft, Non Tender, Non-Distended Skin: No rashes Microbiology Past 72 Hours 05/21/20 05:30 Sputum, Expectorated/Coughed Gram Stain - Final 05/21/20 05:30 Sputum, Expectorated/Coughed Respiratory Culture - Pre liminary Appears to be normal respiratory ozzy. Further studies to follow. 05/21/20 01:22 Mucosa - Nasopharyngeal Respiratory Panel (PCR) - Final 05/21/20 00:05 Urine, Random Legionella Antigen - Final 05/21/20 00:05 Urine, Random Streptococcus pneumoniae Antigen (M - Final Laboratory Results 05/21/20 07:06: Blood Type O POSITIVE 05/22/20 04:10: WBC 10.3, RBC 4.60, Hgb 13.2, Hct 41.9, MCV 91.1, MCH 28.7, MCHC 31.5 L, RDW Std Deviation 45.6 H, RDW Coeff of Dany 13.5, Plt Count 225, MPV 11.2 05/22/20 04:10: Sodium 139, Potassium 3.9, Chloride 107, Carbon Dioxide 27.0, Anion Gap 5, BUN 21 H, Creatinine 0.96, Estim Creat Clear Calc 41.89, Est GFR (MDRD) Af Amer 73, Est GFR (MDRD) Non-Af 60, BUN/Creatinine Ratio 21.8 H, Glucose 164 H, Calcium 7.6 L, Total Bilirubin 0.50, AST 28, ALT 16, Alkaline Phosphatase 71, Total Protein 5.7 L, Albumin 2.4 L, Globulin 3.3, Albumin/Globulin Ratio 0.7 L 05/22/20 04:10: Total Creatine Kinase 70, Triglycerides 149 05/22/20 05:30: Specimen Type ART, Sample Site L Radial, pH 7.30 L, Bicarbonate Actual 29.1 H, Total CO2 31, Base Excess 3 H, O2 Saturation 83 L, O2 % 100, ABG pCO2 59.0 H, ABG pO2 54 L, Nirav Test Positive, Respiration Rate 14, O2 Delivery Device Adult Vent, Vent Mode AC, Tidal Volume 450, POC PEEP 12 Current Medications Acetaminophen (Acetaminophen 650 Mg/20 Ml Udc) 650 mg GT Q6H PRN PRN PRN Reason: TEMP > 100.5 F Last Admin: 05/22/20 06:13 Dose: 650 mg Documented by: Al Hydroxide/Mg Hydroxide (Mag Hydrox/Al Hydrox/Simeth 30 Ml Udc) 30 ml GT Q6H PRN PRN PRN Reason: Gastric Burning Albuterol Sulfate (Albuterol 2.5 Mg/3 Ml Vial.Neb.) 2.5 mg INHALATION Q2H PRN PRN PRN Reason: Dyspnea, wheezing Albuterol/Ipratropium (Ipratropium/Albuterol Sulfate 3 Ml Ampul.Neb) 3 ml INHALATION Q4HWA.RT [facility] Last Admin: 05/22/20 10:05 Dose: 3 ml Documented by: Aspirin (Aspirin 81 Mg Tab.Chew) 81 mg GT DAILY@0800 [facility] Last Admin: 05/22/20 10:47 Dose: 81 mg Documented by: Dexamethasone (Dexamethasone 4 Mg Tablet) 6 mg GT DAILY@0800 [facility] Stop: 05/29/20 08:01 Last Admin: 05/22/20 10:47 Dose: 6 mg Documented by: Enoxaparin Sodium (Enoxaparin 40 Mg/0.4 Ml Syringe) 40 mg SC BID [facility] Last Admin: 05/22/20 10:47 Dose: 40 mg Documented by: Sodium Chloride () 250 mls @ 15 mls/hr IV .[id number] PRN PRN Reason: Saline Flush Last Infusion: 05/22/20 11:12 Dose: 15 mls/hr Documented by: Sodium Chloride () 250 mls @ 15 mls/hr IV .[id number] PRN PRN Reason: Additional IVPB Infusion Remdesivir 100 mg/ Sodium (Chloride) 250 mls @ 125 mls/hr IV DAILY [facility]; Protocol Stop: 05/25/20 11:59 Propofol (Diprivan) 1,000 mg in 100 mls @ 5.376 mls/hr CONT INF .Q12H [facility]; Protocol Last Titration: 05/22/20 11:30 Dose: 25 mcg/kg/min, 13.4 mls/hr Documented by: Fentanyl Citrate 1,000 mcg/ (Sodium Chloride) 100 mls @ 2.5 mls/hr CONT INF .Q40H [facility]; Protocol Last Titration: 05/22/20 11:00 Dose: 200 mcg/hr, 20 mls/hr Documented by: Norepinephrine Bitartrate 8 mg (/ Sodium Chloride) 250 mls @ 9.375 mls/hr CONT INF .[id number] [facility]; Protocol Last Titration: 05/22/20 11:30 Dose: 5 mcg/min, 9.4 mls/hr Documented by: Pantoprazole Sodium 40 mg/ (Sodium Chloride) 110 mls @ 330 mls/hr IV Q24 [facility] Last Infusion: 05/22/20 11:12 Dose: Infused Documented by: Enteral Nutritional Formula (Vital Af 1.2 [place] Liquid) 1,000 mls @ 60 mls/hr GT .[id number] [facility] Magnesium Hydroxide (Magnesium Hydroxide 30 Ml Udc) 30 ml GT DAILY PRN PRN PRN Reason: Constipation Miscellaneous Information (Inhaler, Assist Devices 1 Each Spacer) 1 each INHALATION PRN PRN PRN Reason: WITH AIRDUO MDI Senna/Docusate Sodium (Senna/Docusate Sodium 1 Tablet) 2 tablet GT BID PRN PRN Reason: Constipation Sodium Chloride (0.9% Saline Lock 10 Ml Syringe) 10 - 40 ml IV UD PRN PRN Reason: SALINE FLUSH Last Admin: 05/22/20 10:59 Dose: 40 ml Documented by: Sodium Chloride (Sodium Cl For Inhalation 15 Ml Vial.Neb.) 5 ml INHALATION Q5M PRN PRN Reason: Suctioning Throat Lozenges (Benzocaine/Menthol 1 Lozenge) 1 lozenge MUCOUS MEM Q2H PRN PRN PRN Reason: SORE THROAT Thyroid (Thyroid 60 Mg Tablet) 120 mg GT DAILY [facility] Last Admin: 05/22/20 10:47 Dose: 120 mg Documented by: Medical Necessity - Tobacco Use Smoking Status: Former smoker - Patient quit remotely but cannot give exact timeline, notes she smoked approximately 1 pack weekly but was unclear. Tobacco Use: Non-smoker Route of nutrition/ use of supplements: [] Nutritional Intake: [] IV Site: [] Kelly Catheter: [] - Assessment/Plan Antibiotics: [] Assessment/Plan: [] Active and Suspected Problems (Last Reviewed 03/30/18 @ 15:21 by Makenzie Avery) Acute hypoxemic respiratory failure due to COVID-19 (Acute) Sepsis (Acute) covid - On dex po, lovenox 40mg bid. PCT was neg. Wbc normal. Fever overnight. Now intubated. Pt started on remdesivir 05/21. Pt refused plasma last night. Will follow, d/w nursing
[2020-05-22 13:02] LABS: Pathologist Review Reviewed
[2020-05-22] MEDS: TITRATION PARAMETER CHANGE 1 EACH IV (14:18)
[2020-05-22] MEDS: Vital AF 1.2 Cal Liquid 1,000 ML 60 ML GT (14:19)
[2020-05-22] MEDS: Propofol 10MG/Ml 1,000 MG/100 ML Bottle 10.8 MG CONT INF (15:46)
[2020-05-22] MEDS: Insulin Lispro 100 UNIT/ML INSULN.PEN SC (23:49)
[2020-05-23] VITALS (47 sets, daily range): BP systolic 87–130; BP diastolic 39–67; PULSE 53–107; RESP 14–20; TEMP 36.5–37.8; O2SAT 80–96
[2020-05-23] MEDS: Propofol 10MG/Ml 1,000 MG/100 ML Bottle 13.4 MG CONT INF ×2 (00:36→04:00)
[2020-05-23 04:13] LABS: Hematocrit 39.1 % (37-47); Hemoglobin 12.5 g/dL (12.0-15.0); Mean Corpuscular Hgb 28.9 pg (27.0-32.0); Mean Corpuscular Volume 90.3 fL (81-99); Mean Platelet Vol. 10.6 fl (6.2-12.0); Platelet Count 172 K/mm3 (150-450); RBC Distribution Width CV 13.4 % (11.6-14.6); RBC Distribution Width SD 45.1 fl (35.1-43.9); Red Blood Count 4.33 M/mm3 (4.2-5.4); White Blood Count 5.6 K/mm3 (4.4-11.0)
[2020-05-23 04:29] LABS: ALB/GLOB Ratio 0.6 RATIO (0.9-2.4); AST(SGOT) 24 U/L (15-37); Alanine Aminotransfer ALT/SGPT 17 U/L (13-56); Albumin, Serum 2.2 g/dL (3.2-5.0); Alkaline Phosphatase 72 U/L (45-117); Anion Gap 6 (5-15); BUN 19 mg/dL (7-18); BUN/Creat Ratio 28.5 RATIO (10-20); Calcium,Total 8.2 mg/dL (8.5-10.1); Chloride 103 mmol/L (98-107); Creatinine, Serum 0.67 mg/dL (0.55-1.02); EST Glomerular Filtration Rate 92 mL/min (>60); Est Glom Filt Rate - Afr Amer 112 mL/min (>60); Estimated Creatinine Clearance 40.22 ml/min; Globulin 3.9 g/dL (2.2-4.2); Glucose 234 mg/dL (74-106); Potassium 4.1 mmol/L (3.5-5.1); Protein, Total 6.1 g/dL (6.4-8.2); Sodium Level 138 mmol/L (136-145)
[2020-05-23] MEDS: TITRATION PARAMETER CHANGE 1 EACH IV (05:02)
[2020-05-23 05:06] LABS: Bedside Glucose 253 mg/dL (70-110)
--- NOTE | 2020-05-23 05:26 | NURSING ---
extensive conversations with both daughters, Rachana and Dimple, regarding pt's status and POC, answered all questions and emotional support provided.
[2020-05-23] MEDS: Insulin Lispro 100 UNIT/ML INSULN.PEN SC ×3 (05:41→18:05)
--- NOTE | 2020-05-23 06:07 | PCM.PN.INT ---
Subjective: The patient was seen and examined at the bedside this morning. Events from the last 24 hours have been reviewed. The patient is currently afebrile, hemodynamically stable and maintaining appropriate oxygen saturations on assist control mode of mechanical ventilation with an FiO2 requirement of 100%. The patient refused convalescent plasma, but remains on remdesivir and Decadron daily. She is currently sedated on both propofol and fentanyl and is tolerating tube feeds. She is currently documented to be overall net +5.4 L for the hospital admission. The patient remains on Levophed to maintain hemodynamic stability. Objective: The patient's most recent lab work, culture data and imaging studies have all been personally reviewed. Surface echocardiogram from 2017 revealed normal LV size and function with an ejection fraction of 60%. The RV was noted to be moderate lead to severely dilated with moderate severe global RV systolic dysfunction and a pulmonary artery systolic pressure estimated to be 31 mmHg. Coronavirus PCR was positive on May 16. Sputum, blood and urine cultures are pending. General: - - Remains intubated, sedated and mechanically ventilated. No ventilator dyssynchrony noted. HEENT: Atraumatic, PERRLA, Normocephalic Oral: No Gingival or Mucosal Lesions/ Ulcerations, - - Endotracheal and OG tubes in place Neck: Supple, No Nodes, Trachea Midline, - - Stable right IJ central venous catheter Lungs: No rhonchi, No wheeze, No rales, Diminished Cardiovascular: Regular rate, Regular Rhythm Abdomen: Bowel Sounds Present, Soft, Non Tender, Obese Extremities: No clubbing, No cyanosis, No edema Skin: No breakdown Musculoskeletal: No Tenderness to Palpation of Joints or Extremities Lymphatic: No Cervical, Supraclavicular, or Inguinal Adenopathy Neurological: - - No focal neurological deficits. Currently sedated on the ventilator. Vital Signs Temp Pulse Resp BP Pulse Ox 97.7 F L 60 15 108/51 L 95 05/23/20 05:00 05/23/20 05:00 05/23/20 05:00 05/23/20 05:00 05/23/20 05:00 Oxygen Flow Rate (L/min) 100 Oxygen Delivery Method Mechanical Ventilator Weight: 193 lb 12.581 oz Body Mass Index (BMI) 36.1 Intake and Output for Last 24 Hours 05/21/20 05/22/20 05/23/20 23:59 23:59 23:59 Intake Total 2952.50 / 2952.50 2104.99 / 2206.87 641.61 / 641.61 Output Total 0 / 0 1105 / 1105 200 / 200 Balance 2952.50 / 2952.50 999.99 / 1101.87 441.61 / 441.61 Labs (Last 48 Hours) 05/21/20 05/21/20 05/21/20 07:06 07:15 07:15 WBC 3.0 L RBC 4.73 Hgb 13.8 Hct 42.6 MCV 90.1 MCH 29.2 MCHC 32.4 RDW Std Deviation 44.2 H RDW Coeff of Dany 13.3 Plt Count 146 L MPV 10.5 Immature Gran % (Auto) 0.300 Neut % (Auto) 77.0 H Lymph % (Auto) 15.9 L [place] % (Auto) 6.8 Eos % (Auto) 0.0 Baso % (Auto) 0.0 Absolute Neuts (auto) 2.3 Absolute Lymphs (auto) 0.47 L Nucleated RBC % 0 Differential Comment SCANNED Diff Path Review Reviewed D-Dimer Quant (PE/DVT) 0.36 Specimen Type Sample Site pH Bicarbonate Actual Total CO2 Base Excess O2 Saturation O2 % ABG pCO2 ABG pO2 Nirav Test Respiration Rate O2 Delivery Device Vent Mode Tidal Volume POC PEEP Sodium Potassium Chloride Carbon Dioxide Anion Gap BUN Creatinine Estim Creat Clear Calc Est GFR (MDRD) Af Amer Est GFR (MDRD) Non-Af BUN/Creatinine Ratio Glucose Calcium Ferritin Total Bilirubin AST ALT Alkaline Phosphatase Total Creatine Kinase Troponin I C-React Prot Ext Range Total Protein Albumin Globulin Albumin/Globulin Ratio Triglycerides Procalcitonin TSH Free T4 POC Glucose Blood Type O POSITIVE 05/21/20 05/21/20 05/22/20 07:15 07:15 04:10 WBC 10.3 RBC 4.60 Hgb 13.2 Hct 41.9 MCV 91.1 MCH 28.7 MCHC 31.5 L RDW Std Deviation 45.6 H RDW Coeff of Dany 13.5 Plt Count 225 MPV 11.2 Immature Gran % (Auto) Neut % (Auto) Lymph % (Auto) [place] % (Auto) Eos % (Auto) Baso % (Auto) Absolute Neuts (auto) Absolute Lymphs (auto) Nucleated RBC % Differential Comment Diff Path Review D-Dimer Quant (PE/DVT) Specimen Type Sample Site pH Bicarbonate Actual Total CO2 Base Excess O2 Saturation O2 % ABG pCO2 ABG pO2 Nirav Test Respiration Rate O2 Delivery Device Vent Mode Tidal Volume POC PEEP Sodium 137 Potassium 4.4 Chloride 105 Carbon Dioxide 25.0 Anion Gap 7 BUN 21 H Creatinine 0.79 Estim Creat Clear Calc 40.22 Est GFR (MDRD) Af Amer 92 Est GFR (MDRD) Non-Af 76 BUN/Creatinine Ratio 26.6 H Glucose 235 H Calcium 8.1 L Ferritin 363 H Total Bilirubin 0.40 AST 22 ALT 21 Alkaline Phosphatase 79 Total Creatine Kinase Troponin I < 0.015 C-React Prot Ext Range 79.20 H Total Protein 6.3 L Albumin 2.6 L Globulin 3.7 Albumin/Globulin Ratio 0.7 L Triglycerides Procalcitonin < 0.04 TSH 0.10 L Free T4 1.25 POC Glucose Blood Type 05/22/20 05/22/20 05/22/20 04:10 04:10 05:30 WBC RBC Hgb Hct MCV MCH MCHC RDW Std Deviation RDW Coeff of Dany Plt Count MPV Immature Gran % (Auto) Neut % (Auto) Lymph % (Auto) [place] % (Auto) Eos % (Auto) Baso % (Auto) Absolute Neuts (auto) Absolute Lymphs (auto) Nucleated RBC % Differential Comment Diff Path Review D-Dimer Quant (PE/DVT) Specimen Type ART Sample Site L Radial pH 7.30 L Bicarbonate Actual 29.1 H Total CO2 31 Base Excess 3 H O2 Saturation 83 L O2 % 100 ABG pCO2 59.0 H ABG pO2 54 L Nirav Test Positive Respiration Rate 14 O2 Delivery Device Adult Vent Vent Mode AC Tidal Volume 450 POC PEEP 12 Sodium 139 Potassium 3.9 Chloride 107 Carbon Dioxide 27.0 Anion Gap 5 BUN 21 H Creatinine 0.96 Estim Creat Clear Calc 41.89 Est GFR (MDRD) Af Amer 73 Est GFR (MDRD) Non-Af 60 BUN/Creatinine Ratio 21.8 H Glucose 164 H Calcium 7.6 L Ferritin Total Bilirubin 0.50 AST 28 ALT 16 Alkaline Phosphatase 71 Total Creatine Kinase 70 Troponin I C-React Prot Ext Range Total Protein 5.7 L Albumin 2.4 L Globulin 3.3 Albumin/Globulin Ratio 0.7 L Triglycerides 149 Procalcitonin TSH Free T4 POC Glucose Blood Type 05/22/20 05/23/20 05/23/20 23:38 03:50 03:50 WBC 5.6 RBC 4.33 Hgb 12.5 Hct 39.1 MCV 90.3 MCH 28.9 MCHC 32.0 RDW Std Deviation 45.1 H RDW Coeff of Dany 13.4 Plt Count 172 MPV 10.6 Immature Gran % (Auto) Neut % (Auto) Lymph % (Auto) [place] % (Auto) Eos % (Auto) Baso % (Auto) Absolute Neuts (auto) Absolute Lymphs (auto) Nucleated RBC % Differential Comment Diff Path Review D-Dimer Quant (PE/DVT) Specimen Type Sample Site pH Bicarbonate Actual Total CO2 Base Excess O2 Saturation O2 % ABG pCO2 ABG pO2 Nirav Test Respiration Rate O2 Delivery Device Vent Mode Tidal Volume POC PEEP Sodium 138 Potassium 4.1 Chloride 103 Carbon Dioxide 29.0 Anion Gap 6 BUN 19 H Creatinine 0.67 Estim Creat Clear Calc 40.22 Est GFR (MDRD) Af Amer 112 Est GFR (MDRD) Non-Af 92 BUN/Creatinine Ratio 28.5 H Glucose 234 H Calcium 8.2 L Ferritin Total Bilirubin 0.30 AST 24 ALT 17 Alkaline Phosphatase 72 Total Creatine Kinase Troponin I C-React Prot Ext Range Total Protein 6.1 L Albumin 2.2 L Globulin 3.9 Albumin/Globulin Ratio 0.6 L Triglycerides Procalcitonin TSH Free T4 POC Glucose 253 H Blood Type Microbiology 05/21/20 05:30 Sputum, Expectorated/Coughed Gram Stain - Final 05/21/20 05:30 Sputum, Expectorated/Coughed Respiratory Culture - Preliminary Appears to be normal respiratory ozzy. Further studies to follow. 05/21/20 01:22 Mucosa - Nasopharyngeal Respiratory Panel (PCR) - Final 05/21/20 00:05 Urine, Random Legionella Antigen - Final 05/21/20 00:05 Urine, Random Streptococcus pneumoniae Antigen (M - Final Clinical Impression(s) from Imaging Studies Chest X-Ray 05/20/20 17:54 IMPRESSION: Bilateral infiltrates Electronically Signed: Eric Zuñiga MD at 19:16 EST , Service support , Chest CTA 05/20/20 19:15 IMPRESSION: Bilateral nonspecific interstitial infiltrates indeterminate for covid 19. COPD and pulmonary fibrosis. Electronically Signed: Eric Zuñiga MD at 19:44 EST , Service support , Chest X-Ray 05/22/20 03:30 IMPRESSION: Findings are suspicious for underlying chronic lung disease with possible superimposed infiltrates. Lines as detailed above. Electronically Signed: Rosemary Rodriguez MD at 4:52 EST Tel , Service support , Chest X-Ray 05/22/20 05:02 IMPRESSION: Improvement in the upper lung zone interstitial infiltrates. There is persistent right greater than left lower lobe infiltrates. Endotracheal tube is 1.6 cm above the jac. Could Pull back 1 cm. Electronically Signed: Rosemary Rodriguez MD at 5:55 EST Tel , Service support , Medical Necessity - Tobacco Use Smoking Status: Former smoker - Patient quit remotely but cannot give exact timeline, notes she smoked approximately 1 pack weekly but was unclear. Tobacco Use: Non-smoker Assessment/Plan All Active Problems (Last Reviewed 03/30/18 @ 15:21 by Makenzie Avery) Acute hypoxemic respiratory failure due to COVID-19 (Acute) Sepsis (Acute) Hx of diverticulitis of colon (Acute) Shortness of breath (Acute) Chest pain (Acute) Closed right ankle fracture (Acute) Acute respiratory failure with hypoxemia (Resolved) Hypokalemia (Resolved) RECOMMENDATIONS: 1. Continue current supportive measures with invasive mechanical ventilatory support and wean FiO2 and PEEP to maintain saturations at or above 90%. 2. Continue remdesivir and Decadron to complete treatment courses. 3. Continue Levophed and wean to maintain a mean arterial pressure at or above 65 mmHg. 4. Continue tube feeds as tolerated. 5. Continue Protonix and Lovenox for ICU prophylaxis. 6. Continue bronchodilator therapy. IMPRESSIONS: 1. Acute combined respiratory failure secondary to COVID-19 pneumonia The patient presented to the hospital with Covid pneumonia and subsequently decompensated from a respiratory perspective requiring intubation. Prior to being intubated, the patient refused convalescent plasma. Therefore, would plan to continue current supportive measures including remdesivir and Decadron as ordered. The patient will be continued on assist control mode of mechanical ventilation with plans to wean FiO2 to maintain oxygen saturations at or above 90%. The patient will be continued on tube feeds. Once the patient's hemodynamics stabilize, we will consider gentle diuresis with IV Lasix. 2. Distributive shock Likely multifactorial with a component of septic shock coupled with hemodynamic compromise induced by sedative medication use. 3. Self-reported history of COPD of unknown severity/history of provoked VTE Given that the patient has a self-reported history of COPD of unknown severity, she will be continued on bronchodilator therapy. CTA chest obtained on admission showed no evidence for pulmonary embolism. Therefore, continue DVT prophylaxis with Lovenox. 4. History of hypertension/hyperlipidemia/hypothyroidism/GERD/prior tobacco dependency Complicates care, management, recovery and prognosis. Hold home antihypertensives. Continue appropriate GI prophylaxis. Continue Synthroid. TIME: 34 minutes of critical care time, independent of procedures, was spent addressing the patient's acute combined respiratory failure secondary to COVID-19 pneumonia, distributive shock, COPD, review of all data and collaboration with the care team. ([id number]) [id number] Critical care first hour
--- NOTE | 2020-05-23 06:28 | NURSING ---
bilateral arms elevated on pillows and O2 sats decreased to 60%, increased FiO2 to 100%, took approx 20 minutes to recover with sats up to 91%
--- NOTE | 2020-05-23 06:49 | NURSING ---
Daughters, particularly Dimple, is adamant about pt receiving hydroxychloroquine, vitamin C and D, and zinc and if we cannot provide it they wish the patient to be transferred. This RN explained to family the risks involved in transferring pt at this time in critical state and the possibility of pt expiring during transport. There was no reasoning with daughters, they are demanding these meds be given.
[2020-05-23] MEDS: Ipratropium/Albuterol Sulfate 3 ML AMPUL.NEB INHALATION ×4 (07:01→19:19)
[2020-05-23] MEDS: Propofol 10MG/Ml 1,000 MG/100 ML Bottle 13.2 MG CONT INF ×4 (07:06→21:10)
--- NOTE | 2020-05-23 08:23 | PCM.PROGNOTE ---
Patient Problems: Active and Suspected Problems (Last Reviewed 03/30/18 @ 15:21 by Makenzie Avery) Acute hypoxemic respiratory failure due to COVID-19 (Acute) Sepsis (Acute) Subjective: Patient was seen and examined this morning, she remains intubated on the ventilator with sedation. Patient's current FiO2 is 0.95. Objective: General: No apparent distress, Well developed patient is sedated on the ventilator HEENT: Atraumatic, PERRLA, Normocephalic Oral: Moist Mucosa Neck: No JVD, Trachea Midline, Thyroid Normal Size and Texture Lungs: Normal air movement, Rhonchi - Expiratory rhonchi are scattered bilaterally Cardiovascular: Regular rate, Regular Rhythm, Normal S1, Normal S2, No murmurs, PMI Normal, No rub noted Abdomen: Bowel Sounds Present, Soft, Non Tender, Non-Distended, No hernias noted Extremities: No clubbing, No cyanosis, No edema, Capillary Refill Less than 3 Seconds Skin: No rashes, No breakdown Musculoskeletal: No joint swelling is noted Neurological: Cranial nerves II-XII grossly intact Psych/Mental Status: Patient is sedated and on the ventilator - Physical Exam Vitals/I&O's: Vital Signs Temp Pulse Resp BP Pulse Ox 98.2 F 64 16 98/52 L 94 05/23/20 08:00 05/23/20 08:00 05/23/20 08:00 05/23/20 08:00 05/23/20 08:00 Oxygen Flow Rate (L/min) 100 Oxygen Delivery Method Mechanical Ventilator Weight: 87.9 kg Body Mass Index (BMI) 36.1 Intake and Output for Last 24 Hours 05/21/20 05/22/20 05/23/20 23:59 23:59 23:59 Intake Total 2952.50 / 2952.50 2104.99 / 2206.87 1217.25 / 1217.25 Output Total 0 / 0 1105 / 1105 325 / 325 Balance 2952.50 / 2952.50 999.99 / 1101.87 892.25 / 892.25 Microbiology Past 72 Hours 05/21/20 05:30 Sputum, Expectorated/Coughed Gram Stain - Final 05/21/20 05:30 Sputum, Expectorated/Coughed Respiratory Culture - Preliminary Appears to be normal respiratory ozzy. Further studies to follow. 05/21/20 01:22 Mucosa - Nasopharyngeal Respiratory Panel (PCR) - Final 05/21/20 00:05 Urine, Random Legionella Antigen - Final 05/21/20 00:05 Urine, Random Streptococcus pneumoniae Antigen (M - Final Laboratory Results 05/21/20 07:15: Diff Path Review Reviewed 05/22/20 23:38: POC Glucose 253 H 05/23/20 03:50: WBC 5.6, RBC 4.33, Hgb 12.5, Hct 39.1, MCV 90.3, MCH 28.9, MCHC 32.0, RDW Std Deviation 45.1 H, RDW Coeff of Dany 13.4, Plt Count 172, MPV 10.6 05/23/20 03:50: Sodium 138, Potassium 4.1, Chloride 103, Carbon Dioxide 29.0, Anion Gap 6, BUN 19 H, Creatinine 0.67, Estim Creat Clear Calc 40.22, Est GFR (MDRD) Af Amer 112, Est GFR (MDRD) Non-Af 92, BUN/Creatinine Ratio 28.5 H, Glucose 234 H, Calcium 8.2 L, Total Bilirubin 0.30, AST 24, ALT 17, Alkaline Phosphatase 72, Total Protein 6.1 L, Albumin 2.2 L, Globulin 3.9, Albumin/Globulin Ratio 0.6 L Current Medications Acetaminophen (Acetaminophen 650 Mg/20 Ml Udc) 650 mg GT Q6H PRN PRN PRN Reason: TEMP > 100.5 F Last Admin: 05/22/20 06:13 Dose: 650 mg Documented by: Al Hydroxide/Mg Hydroxide (Mag Hydrox/Al Hydrox/Simeth 30 Ml Udc) 30 ml GT Q6H PRN PRN PRN Reason: Gastric Burning Albuterol Sulfate (Albuterol 2.5 Mg/3 Ml Vial.Neb.) 2.5 mg INHALATION Q2H PRN PRN PRN Reason: Dyspnea, wheezing Albuterol/Ipratropium (Ipratropium/Albuterol Sulfate 3 Ml Ampul.Neb) 3 ml INHALATION Q4HWA.RT [facility] Last Admin: 05/23/20 07:01 Dose: 3 ml Documented by: Aspirin (Aspirin 81 Mg Tab.Chew) 81 mg GT DAILY@0800 [facility] Last Admin: 05/22/20 10:47 Dose: 81 mg Documented by: Dexamethasone (Dexamethasone 4 Mg Tablet) 6 mg GT DAILY@0800 [facility] Stop: 05/29/20 08:01 Last Admin: 05/22/20 10:47 Dose: 6 mg Documented by: Enoxaparin Sodium (Enoxaparin 40 Mg/0.4 Ml Syringe) 40 mg SC BID [facility] Last Admin: 05/22/20 20:42 Dose: 40 mg Documented by: Sodium Chloride () 250 mls @ 15 mls/hr IV .[id number] PRN PRN Reason: Saline Flush Last Admin: 05/23/20 06:21 Dose: 15 mls/hr Documented by: Sodium Chloride () 250 mls @ 15 mls/hr IV .[id number] PRN PRN Reason: Additional IVPB Infusion Remdesivir 100 mg/ Sodium (Chloride) 250 mls @ 125 mls/hr IV DAILY [facility]; Protocol Stop: 05/25/20 11:59 Last Infusion: 05/22/20 14:36 Dose: Infused Documented by: Propofol (Diprivan) 1,000 mg in 100 mls @ 5.274 mls/hr CONT INF .Q12H [facility]; Protocol Last Titration: 05/23/20 08:00 Dose: 25 mcg/kg/min, 13.2 mls/hr Documented by: Fentanyl Citrate 1,000 mcg/ (Sodium Chloride) 100 mls @ 2.5 mls/hr CONT INF .Q40H [facility]; Protocol Last Titration: 05/23/20 08:00 Dose: 175 mcg/hr, 17.5 mls/hr Documented by: Norepinephrine Bitartrate 8 mg (/ Sodium Chloride) 250 mls @ 9.375 mls/hr CONT INF .[id number] [facility]; Protocol Last Titration: 05/23/20 08:00 Dose: 5 mcg/min, 9.4 mls/hr Documented by: Pantoprazole Sodium 40 mg/ (Sodium Chloride) 110 mls @ 330 mls/hr IV Q24 [facility] Last Infusion: 05/22/20 11:12 Dose: Infused Documented by: Enteral Nutritional Formula (Vital Af 1.2 Stanley Liquid) 1,000 mls @ 60 mls/hr GT .[id number] [facility] Last Admin: 05/23/20 05:29 Dose: Not Given Documented by: Insulin Human Lispro (Insulin Lispro 100 Unit/Ml Insuln.Pen) 0 unit SC Q6 [facility]; Protocol Last Admin: 05/23/20 05:41 Dose: 3 units Documented by: Magnesium Hydroxide (Magnesium Hydroxide 30 Ml Udc) 30 ml GT DAILY PRN PRN PRN Reason: Constipation Miscellaneous Information (Inhaler, Assist Devices 1 Each Spacer) 1 each INHALATION PRN PRN PRN Reason: WITH AIRDUO MDI Senna/Docusate Sodium (Senna/Docusate Sodium 1 Tablet) 2 tablet GT BID PRN PRN Reason: Constipation Sodium Chloride (0.9% Saline Lock 10 Ml Syringe) 10 - 40 ml IV UD PRN PRN Reason: SALINE FLUSH Last Admin: 05/22/20 10:59 Dose: 40 ml Documented by: Sodium Chloride (Sodium Cl For Inhalation 15 Ml Vial.Neb.) 5 ml INHALATION Q5M PRN PRN Reason: Suctioning Throat Lozenges (Benzocaine/Menthol 1 Lozenge) 1 lozenge MUCOUS MEM Q2H PRN PRN PRN Reason: SORE THROAT Thyroid (Thyroid 60 Mg Tablet) 120 mg GT DAILY [facility] Last Admin: 05/22/20 10:47 Dose: 120 mg Documented by: Medical Necessity - Tobacco Use Smoking Status: Former smoker - Patient quit remotely but cannot give exact timeline, notes she smoked approximately 1 pack weekly but was unclear. Tobacco Use: Non-smoker Assessment/Plan All Active Problems (Last Reviewed 03/30/18 @ 15:21 by Makenzie Avery) Acute hypoxemic respiratory failure due to COVID-19 (Acute) Sepsis (Acute) Hx of diverticulitis of colon (Acute) Shortness of breath (Acute) Chest pain (Acute) Closed right ankle fracture (Acute) Acute respiratory failure with hypoxemia (Resolved) Hypokalemia (Resolved) #1 acute hypoxemic respiratory failure secondary to Covid 19 pneumonia-patient is now on the ventilator, critical care is seeing patient #2 COVID-19 pneumonia-infectious diseases is seeing the patient, she will remain on medications per infectious diseases #3 septic shock-patient is currently on pressor agent at a low dose #4 asthma-chronic, patient is not on oxygen at home #5 essential hypertension #6 hyperlipidemia #7 elevated glucose secondary to corticosteroid administration Inpatient E&M: [id number] [facility] L[facility]
[2020-05-23] MEDS: dexAMETHasone 4 MG Tablet 6 MG GT (08:42)
[2020-05-23] MEDS: Aspirin 81 MG TAB.CHEW GT (08:42)
[2020-05-23] MEDS: Thyroid 60 MG Tablet 120 MG GT (08:42)
[2020-05-23] MEDS: Enoxaparin 40 MG/0.4 ML Syringe SC ×2 (08:43→21:52)
[2020-05-23] MEDS: Vital AF 1.2 Cal Liquid 1,000 ML 60 ML GT ×3 (10:30→21:53)
[2020-05-23] MEDS: Furosemide 40 MG/4 ML Vial IV (11:05)
[2020-05-23] MEDS: Senna/Docusate Sodium 1 Tablet 2 TABLET GT ×2 (11:06→21:52)
--- NOTE | 2020-05-23 15:46 | PCM.PN.ID ---
Patient Problems: Active and Suspected Problems (Last Reviewed 03/30/18 @ 15:21 by Makenzie Avery) Acute hypoxemic respiratory failure due to COVID-19 (Acute) Sepsis (Acute) Subjective: On vent, fever resolved - Physical Exam Vitals/I&O's: Vital Signs Temp Pulse Resp BP Pulse Ox 100.0 F H 70 16 120/54 L 95 05/23/20 15:00 05/23/20 15:00 05/23/20 15:00 05/23/20 15:00 05/23/20 15:00 Oxygen Flow Rate (L/min) 100 Oxygen Delivery Method Mechanical Ventilator Weight: 87.9 kg Body Mass Index (BMI) 36.1 Intake and Output for Last 24 Hours 05/21/20 05/22/20 05/23/20 23:59 23:59 23:59 Intake Total 2952.50 / 2952.50 2104.99 / 2206.87 1681.67 / 1681.67 Output Total 0 / 0 1105 / 1105 510 / 510 Balance 2952.50 / 2952.50 999.99 / 1101.87 1171.67 / 1171.67 General: Alert, Cooperative, No apparent distress Lungs: Diminished Cardiovascular: Regular rate, Regular Rhythm Abdomen: Soft, Non Tender, Non-Distended Skin: No rashes Microbiology Past 72 Hours 05/21/20 05:30 Sputum, Expectorated/Coughed Gram Stain - Final 05/21/20 05:30 Sputum, Expectorated/Coughed Respiratory Culture - Final Yeast, not Kassandra albicans 05/20/20 18:10 Blood Culture (Wb) - Right Forearm Blood Culture - Preliminary No growth in 48 hours. 05/20/20 17:55 Blood Culture (Wb) - Anticubital Right Blood Culture - Preliminary No growth in 48 hours. 05/21/20 01:22 Mucosa - Nasopharyngeal Respiratory Panel (PCR) - Final 05/21/20 00:05 Urine, Random Legionella Antigen - Final 05/21/20 00:05 Urine, Random Streptococcus pneumoniae Antigen (M - Final Laboratory Results 05/22/20 23:38: POC Glucose 253 H 05/23/20 03:50: WBC 5.6, RBC 4.33, Hgb 12.5, Hct 39.1, MCV 90.3, MCH 28.9, MCHC 32.0, RDW Std Deviation 45.1 H, RDW Coeff of Dany 13.4, Plt Count 172, MPV 10.6 05/23/20 03:50: Sodium 138, Potassium 4.1, Chloride 103, Carbon Dioxide 29.0, Anion Gap 6, BUN 19 H, Creatinine 0.67, Estim Creat Clear Calc 40.22, Est GFR (MDRD) Af Amer 112, Est GFR (MDRD) Non-Af 92, BUN/Creatinine Ratio 28.5 H, Glucose 234 H, Calcium 8.2 L, Total Bilirubin 0.30, AST 24, ALT 17, Alkaline Phosphatase 72, Total Protein 6.1 L, Albumin 2.2 L, Globulin 3.9, Albumin/Globulin Ratio 0.6 L Current Medications Acetaminophen (Acetaminophen 650 Mg/20 Ml Udc) 650 mg GT Q6H PRN PRN PRN Reason: TEMP > 100.5 F Last Admin: 05/22/20 06:13 Dose: 650 mg Documented by: Al Hydroxide/Mg Hydroxide (Mag Hydrox/Al Hydrox/Simeth 30 Ml Udc) 30 ml GT Q6H PRN PRN PRN Reason: Gastric Burning Albuterol Sulfate (Albuterol 2.5 Mg/3 Ml Vial.Neb.) 2.5 mg INHALATION Q2H PRN PRN PRN Reason: Dyspnea, wheezing Albuterol/Ipratropium (Ipratropium/Albuterol Sulfate 3 Ml Ampul.Neb) 3 ml INHALATION Q4HWA.RT [facility] Last Admin: 05/23/20 11:38 Dose: 3 ml Documented by: Aspirin (Aspirin 81 Mg Tab.Chew) 81 mg GT DAILY@0800 [facility] Last Admin: 05/23/20 08:42 Dose: 81 mg Documented by: Dexamethasone (Dexamethasone 4 Mg Tablet) 6 mg GT DAILY@0800 [facility] Stop: 05/29/20 08:01 Last Admin: 05/23/20 08:42 Dose: 6 mg Documented by: Enoxaparin Sodium (Enoxaparin 40 Mg/0.4 Ml Syringe) 40 mg SC BID [facility] Last Admin: 05/23/20 08:43 Dose: 40 mg Documented by: Sodium Chloride () 250 mls @ 15 mls/hr IV .[id number] PRN PRN Reason: Saline Flush Last Admin: 05/23/20 06:21 Dose: 15 mls/hr Documented by: Sodium Chloride () 250 mls @ 15 mls/hr IV .[id number] PRN PRN Reason: Additional IVPB Infusion Remdesivir 100 mg/ Sodium (Chloride) 250 mls @ 125 mls/hr IV DAILY BRITTANY; Protocol Stop: 05/25/20 11:59 Last Admin: 05/23/20 13:09 Dose: 125 mls/hr Documented by: Propofol (Diprivan) 1,000 mg in 100 mls @ 5.274 mls/hr CONT INF .Q12H [facility]ITTANY; Protocol Last Titration: 05/23/20 15:00 Dose: Infused Documented by: Fentanyl Citrate 1,000 mcg/ (Sodium Chloride) 100 mls @ 2.5 mls/hr CONT INF .Q40H [facility]ITATNY; Protocol Last Titration: 05/23/20 15:00 Dose: 175 mcg/hr, 17.5 mls/hr Documented by: Norepinephrine Bitartrate 8 mg (/ Sodium Chloride) 250 mls @ 9.375 mls/hr CONT INF .[id number] BRITTANY; Protocol Last Titration: 05/23/20 15:00 Dose: 5 mcg/min, 9.4 mls/hr Documented by: Pantoprazole Sodium 40 mg/ (Sodium Chloride) 110 mls @ 330 mls/hr IV Q24 [facility] Last Admin: 05/23/20 12:00 Dose: 330 mls/hr Documented by: Enteral Nutritional Formula (Vital Af 1.2 Stanley Liquid) 1,000 mls @ 60 mls/hr GT .[id number] [facility] Last Admin: 05/23/20 10:30 Dose: 60 mls/hr Documented by: Insulin Human Lispro (Insulin Lispro 100 Unit/Ml Insuln.Pen) 0 unit SC Q6 [facility]ITTANY; Protocol Last Admin: 05/23/20 11:41 Dose: 4 units Documented by: Magnesium Hydroxide (Magnesium Hydroxide 30 Ml Udc) 30 ml GT DAILY PRN PRN PRN Reason: Constipation Miscellaneous Information (Inhaler, Assist Devices 1 Each Spacer) 1 each INHALATION PRN PRN PRN Reason: WITH AIRDUO MDI Senna/Docusate Sodium (Senna/Docusate Sodium 1 Tablet) 2 tablet GT BID [facility] Last Admin: 05/23/20 11:06 Dose: 2 tablet Documented by: Sodium Chloride (0.9% Saline Lock 10 Ml Syringe) 10 - 40 ml IV UD PRN PRN Reason: SALINE FLUSH Last Admin: 05/22/20 10:59 Dose: 40 ml Documented by: Sodium Chloride (Sodium Cl For Inhalation 15 Ml Vial.Neb.) 5 ml INHALATION Q5M PRN PRN Reason: Suctioning Throat Lozenges (Benzocaine/Menthol 1 Lozenge) 1 lozenge MUCOUS MEM Q2H PRN PRN PRN Reason: SORE THROAT Thyroid (Thyroid 60 Mg Tablet) 120 mg GT DAILY [facility] Last Admin: 05/23/20 08:42 Dose: 120 mg Documented by: Medical Necessity - Tobacco Use Smoking Status: Former smoker - Patient quit remotely but cannot give exact timeline, notes she smoked approximately 1 pack weekly but was unclear. Tobacco Use: Non-smoker Route of nutrition/ use of supplements: [] Nutritional Intake: [] IV Site: [] Kelly Catheter: [] - Assessment/Plan Antibiotics: [] Assessment/Plan: [] Active and Suspected Problems (Last Reviewed 03/30/18 @ 15:21 by Makenzie Avery) Acute hypoxemic respiratory failure due to COVID-19 (Acute) Sepsis (Acute) covid - On dex po, lovenox 40mg bid. PCT was neg. Wbc normal. Fever resolved. Now intubated. Pt started on remdesivir 05/21. Pt refused plasma. Sputum with some yeast, no need for antifungal treatment. Will follow, d/w nursing
[2020-05-23 16:10] LABS: Bedside Glucose 247 mg/dL (70-110)
[2020-05-23 17:25] LABS: Bedside Glucose 278 mg/dL (70-110)
--- NOTE | 2020-05-23 21:14 | NURSING ---
Discussed with Rachana her daughter the importance of having one family member call in for updates. Rachana will be that person.
[2020-05-23 22:11] LABS: Bedside Glucose 386 mg/dL (70-110)
[2020-05-24] VITALS (54 sets, daily range): BP systolic 94–126; BP diastolic 46–62; PULSE 65–114; RESP 14–26; TEMP 36.9–39; O2SAT 73–93
[2020-05-24] MEDS: Insulin Lispro 100 UNIT/ML INSULN.PEN SC ×5 (00:17→23:12)
--- NOTE | 2020-05-24 00:30 | NURSING ---
fentanyl drip verified with Heidi Mcdonough RN
[2020-05-24 00:31] LABS: Bedside Glucose 374 mg/dL (70-110)
[2020-05-24] MEDS: Vital AF 1.2 Cal Liquid 1,000 ML 60 ML GT ×3 (01:33→08:56)
[2020-05-24] MEDS: Propofol 10MG/Ml 1,000 MG/100 ML Bottle 13.2 MG CONT INF ×4 (04:27→20:00)
[2020-05-24 04:48] LABS: Hematocrit 37.6 % (37-47); Hemoglobin 11.8 g/dL (12.0-15.0); Mean Corp Hgb Conc 31.4 g/dL (32-36); Mean Corpuscular Hgb 28.4 pg (27.0-32.0); Mean Corpuscular Volume 90.4 fL (81-99); Mean Platelet Vol. 10.6 fl (6.2-12.0); POSITIVE DIFFERENTIAL YES; Platelet Count 160 K/mm3 (150-450); RBC Distribution Width CV 13.5 % (11.6-14.6); RBC Distribution Width SD 44.9 fl (35.1-43.9); Red Blood Count 4.16 M/mm3 (4.2-5.4); White Blood Count 4.2 K/mm3 (4.4-11.0)
[2020-05-24 05:15] LABS: Scan Indicated on CBC? Y/N YES- FLAGS NOTED
[2020-05-24 05:16] LABS: ALB/GLOB Ratio 0.5 RATIO (0.9-2.4); AST(SGOT) 20 U/L (15-37); Alanine Aminotransfer ALT/SGPT 15 U/L (13-56); Alkaline Phosphatase 82 U/L (45-117); Anion Gap 4 (5-15); BUN 28 mg/dL (7-18); BUN/Creat Ratio 36.4 RATIO (10-20); Calcium,Total 8.1 mg/dL (8.5-10.1); Chloride 102 mmol/L (98-107); Creatinine, Serum 0.77 mg/dL (0.55-1.02); EST Glomerular Filtration Rate 78 mL/min (>60); Est Glom Filt Rate - Afr Amer 95 mL/min (>60); Estimated Creatinine Clearance 40.22 ml/min; Globulin 3.9 g/dL (2.2-4.2); Glucose 336 mg/dL (74-106); Protein, Total 5.9 g/dL (6.4-8.2); Sodium Level 140 mmol/L (136-145)
--- NOTE | 2020-05-24 05:43 | PN_ITS ---
Subjective: The patient was seen and examined at the bedside this morning. Events from the last 24 hours have been reviewed. The patient's oxygen status remains tenuous despite being on assist control mode of mechanical ventilation with an FiO2 requirement of 100% and PEEP of 14. The patient remains febrile as well. The patient is currently documented to be overall net +3.6 L for the hospital admission. Creatinine is stable. The patient remains on Levophed at 3 mcg/min to maintain hemodynamic stability. She is sedated on both propofol and fentanyl. Repeat chest x-ray was reviewed from this morning and revealed stable appearing life support devices with persistent bilateral interstitial infiltrates. I did speak with infectious diseases this morning regarding the patient's fevers overnight and sputum culture results demonstrating yeast, not Kassandra albicans. The recommendation at this time was to start the patient on fluconazole. Objective: The patient's most recent lab work, culture data and imaging studies have all been personally reviewed. Surface echocardiogram from 2016 revealed normal LV size and function with an ejection fraction of 60%. The RV was noted to be moderate lead to severely dilated with moderate severe global RV systolic dysfunction and a pulmonary artery systolic pressure estimated to be 31 mmHg. Coronavirus PCR was positive on May 16. General: - - Remains intubated, sedated and mechanically ventilated. HEENT: Atraumatic, Normocephalic Oral: No Gingival or Mucosal Lesions/ Ulcerations, - - Stable endotracheal and OG tubes Neck: Supple, No Nodes, Trachea Midline, - - Right IJ central venous catheter remains in place Lungs: Diminished, Tachypneic Cardiovascular: Regular rate, Regular Rhythm Abdomen: Bowel Sounds Present, Soft, Non Tender, Obese Extremities: No clubbing, No cyanosis Skin: No breakdown Musculoskeletal: No Tenderness to Palpation of Joints or Extremities Lymphatic: No Cervical, Supraclavicular, or Inguinal Adenopathy Neurological: - - No focal neurological deficits. Remains sedated on the ventilator. Vital Signs Temp Pulse Resp BP Pulse Ox 101 F H 82 18 121/53 H 86 05/24/20 05:00 05/24/20 05:18 05/24/20 05:18 05/24/20 05:00 05/24/20 05:18 Oxygen Flow Rate (L/min) 100 Oxygen Delivery Method Mechanical Ventilator Weight: 191 lb 9.307 oz Body Mass Index (BMI) 36.1 Intake and Output for Last 24 Hours 1105/23/20 05/24/20 23:59 23:59 23:59 Intake Total 2104.99 / 2206.87 2679.22 / 2717.42 286.94 / 286.94 Output Total 1105 / 1105 3185 / 3585 925 / 925 Balance 999.99 / 1101.87 -505.78 / -867.58 -638.06 / -638.06 Labs (Last 48 Hours) 05/21/20 05/22/20 05/22/20 07:15 04:10 04:10 WBC 10.3 RBC 4.60 Hgb 13.2 Hct 41.9 MCV 91.1 MCH 28.7 MCHC 31.5 L RDW Std Deviation 45.6 H RDW Coeff of Dany 13.5 Plt Count 225 MPV 11.2 Differential Comment Diff Path Review Reviewed Sodium 139 Potassium 3.9 Chloride 107 Carbon Dioxide 27.0 Anion Gap 5 BUN 21 H Creatinine 0.96 Estim Creat Clear Calc 41.89 Est GFR (MDRD) Af Amer 73 Est GFR (MDRD) Non-Af 60 BUN/Creatinine Ratio 21.8 H Glucose 164 H Calcium 7.6 L Total Bilirubin 0.50 AST 28 ALT 16 Alkaline Phosphatase 71 Total Protein 5.7 L Albumin 2.4 L Globulin 3.3 Albumin/Globulin Ratio 0.7 L POC Glucose 05/22/20 05/23/20 05/23/20 23:38 03:50 03:50 WBC 5.6 RBC 4.33 Hgb 12.5 Hct 39.1 MCV 90.3 MCH 28.9 MCHC 32.0 RDW Std Deviation 45.1 H RDW Coeff of Dany 13.4 Plt Count 172 MPV 10.6 Differential Comment Diff Path Review Sodium 138 Potassium 4.1 Chloride 103 Carbon Dioxide 29.0 Anion Gap 6 BUN 19 H Creatinine 0.67 Estim Creat Clear Calc 40.22 Est GFR (MDRD) Af Amer 112 Est GFR (MDRD) Non-Af 92 BUN/Creatinine Ratio 28.5 H Glucose 234 H Calcium 8.2 L Total Bilirubin 0.30 AST 24 ALT 17 Alkaline Phosphatase 72 Total Protein 6.1 L Albumin 2.2 L Globulin 3.9 Albumin/Globulin Ratio 0.6 L POC Glucose 253 H 05/23/20 05/23/20 05/23/20 05:37 11:40 18:02 WBC RBC Hgb Hct MCV MCH MCHC RDW Std Deviation RDW Coeff of Dany Plt Count MPV Differential Comment Diff Path Review Sodium Potassium Chloride Carbon Dioxide Anion Gap BUN Creatinine Estim Creat Clear Calc Est GFR (MDRD) Af Amer Est GFR (MDRD) Non-Af BUN/Creatinine Ratio Glucose Calcium Total Bilirubin AST ALT Alkaline Phosphatase Total Protein Albumin Globulin Albumin/Globulin Ratio POC Glucose 247 H 278 H 386 H 05/24/20 05/24/20 05/24/20 00:14 04:40 04:40 WBC 4.2 L RBC 4.16 L Hgb 11.8 L Hct 37.6 MCV 90.4 MCH 28.4 MCHC 31.4 L RDW Std Deviation 44.9 H RDW Coeff of Dany 13.5 Plt Count 160 MPV 10.6 Differential Comment Diff Path Review Sodium 140 Potassium 4.0 Chloride 102 Carbon Dioxide 34.0 H Anion Gap 4 L BUN 28 H Creatinine 0.77 Estim Creat Clear Calc 40.22 Est GFR (MDRD) Af Amer 95 Est GFR (MDRD) Non-Af 78 BUN/Creatinine Ratio 36.4 H Glucose 336 H Calcium 8.1 L Total Bilirubin 0.30 AST 20 ALT 15 Alkaline Phosphatase 82 Total Protein 5.9 L Albumin 2.0 L Globulin 3.9 Albumin/Globulin Ratio 0.5 L POC Glucose 374 H Microbiology 05/21/20 05:30 Sputum, Expectorated/Coughed Gram Stain - Final 05/21/20 05:30 Sputum, Expectorated/Coughed Respiratory Culture - Final Yeast, not Kassandra albicans 05/20/20 18:10 Blood Culture (Wb) - Right Forearm Blood Culture - Preliminary No growth in 48 hours. 05/20/20 17:55 Blood Culture (Wb) - Anticubital Right Blood Culture - Preliminary No growth in 48 hours. Clinical Impression(s) from Imaging Studies Chest X-Ray 05/20/20 17:54 IMPRESSION: Bilateral infiltrates Electronically Signed: Eric Zuñiga MD at 19:16 EST , Service support , Chest CTA 05/20/20 19:15 IMPRESSION: Bilateral nonspecific interstitial infiltrates indeterminate for covid 19. COPD and pulmonary fibrosis. Electronically Signed: Eric Zuñiga MD at 19:44 EST , Service support , Chest X-Ray 05/22/20 03:30 IMPRESSION: Findings are suspicious for underlying chronic lung disease with possible superimposed infiltrates. Lines as detailed above. Electronically Signed: Rosemary Rodriguez MD at 4:52 EST Tel , Service support , Chest X-Ray 05/22/20 05:02 IMPRESSION: Improvement in the upper lung zone interstitial infiltrates. There is persistent right greater than left lower lobe infiltrates. Endotracheal tube is 1.6 cm above the jac. Could Pull back 1 cm. Electronically Signed: Rosemary Rodriguez MD at 5:55 EST Tel , Service support , Medical Necessity - Tobacco Use Smoking Status: Former smoker - Patient quit remotely but cannot give exact timeline, notes she smoked approximately 1 pack weekly but was unclear. Tobacco Use: Non-smoker Assessment/Plan All Active Problems (Last Reviewed 03/30/18 @ 15:21 by Makenzie Avery) Acute hypoxemic respiratory failure due to COVID-19 (Acute) Sepsis (Acute) Hx of diverticulitis of colon (Acute) Shortness of breath (Acute) Chest pain (Acute) Closed right ankle fracture (Acute) Acute respiratory failure with hypoxemia (Resolved) Hypokalemia (Resolved) RECOMMENDATIONS: 1. Continue current supportive measures with invasive mechanical ventilatory support and wean FiO2 and PEEP to maintain saturations at or above 90%. 2. Continue remdesivir and Decadron to complete treatment courses. 3. Continue Levophed and wean to maintain a mean arterial pressure at or above 65 mmHg. 4. Continue tube feeds as tolerated. 5. Continue Protonix and Lovenox for ICU prophylaxis. 6. Continue bronchodilator therapy. 7. Start fluconazole per discussion with ID. Obtain urine culture as well. 8. Goals of care discussion with patient's family. IMPRESSIONS: 1. Acute combined respiratory failure secondary to COVID-19 pneumonia The patient presented to the hospital with Covid pneumonia and subsequently decompensated from a respiratory perspective requiring intubation. Prior to being intubated, the patient refused convalescent plasma. Therefore, would plan to continue current supportive measures including remdesivir and Decadron as ordered. The patient will be continued on assist control mode of mechanical ventilation with plans to wean FiO2 to maintain oxygen saturations at or above 90%. The patient will be continued on tube feeds. Plan to attempt gentle diuresis today, despite vasopressor requirement. The patient will also be started on fluconazole, following discussion with infectious diseases. 2. Distributive shock Likely multifactorial with a component of septic shock coupled with hemodynamic compromise induced by sedative medication use. 3. Self-reported history of COPD of unknown severity/history of provoked VTE Given that the patient has a self-reported history of COPD of unknown severity, she will be continued on bronchodilator therapy. CTA chest obtained on admission showed no evidence for pulmonary embolism. Therefore, continue DVT prophylaxis with Lovenox. 4. History of hypertension/hyperlipidemia/hypothyroidism/GERD/prior tobacco dependency Complicates care, management, recovery and prognosis. Hold home antihypertensives. Continue appropriate GI prophylaxis. Continue Synthroid. UPDATE: I spoke with the patient's daughters this morning in person and updated them on her overall clinical status and poor prognosis. Following my discussion with the patient's family, they were agreeable to transitioning the patient from full code to DNR CCA. Orders will be updated in the computer. TIME: 45 minutes of critical care time, independent of procedures, was spent addressing the patient's acute combined respiratory failure secondary to COVID- 19 pneumonia, distributive shock, COPD, review of all data and collaboration with the care team. ([id number]) [id number] Critical care first hour
--- NOTE | 2020-05-24 05:45 | RAD_ITS ---
HISTORY: Respiratory failure, COVID. ADDITIONAL HISTORY: None provided. EXAMINATION/TECHNIQUE: XR Chest 1 View AP/PA Number of images including paperwork: 1 COMPARISON: 05/22/2020 FINDINGS: LUNGS AND PLEURA: Bilateral interstitial and airspace opacities appear grossly similar given differences in lung volumes and technique. CARDIAC SILHOUETTE: Stable. MEDIASTINUM AND VIOLET: Stable. UPPER ABDOMEN: Unremarkable. SKELETON AND SOFT TISSUES: No acute skeletal findings. Degenerative changes. OTHER DEVICES AND HARDWARE: Endotracheal tube tip in the mid thoracic trachea. Gastric tube extends in the stomach. Right-sided central venous catheter tip near the cavoatrial junction. RAD/Chest 1 View (Portable) IMPRESSION: No gross change in bilateral infiltrates. at [id number] Reported and signed by: Dona Robert MD Electronically Signed: Dona Robert MD at 6:43 EST Tel , Service support ,
[2020-05-24] MEDS: 0.9% Saline Lock 10 ML Syringe IV (05:51)
[2020-05-24] MEDS: Acetaminophen 650 MG/20 ML UDC GT ×2 (05:51→20:09)
[2020-05-24 06:16] LABS: Bedside Glucose 335 mg/dL (70-110)
[2020-05-24] MEDS: Ipratropium/Albuterol Sulfate 3 ML AMPUL.NEB INHALATION ×4 (07:02→19:05)
--- NOTE | 2020-05-24 07:30 | NURSING ---
Patients daughters Rachana and Dimple updated on patients change in condition. Questions answered and support given. Both daughters will be in to meet with the doctor about further care. Pts also updated, would like to be called when the daughters are meeting with the doctors.
[2020-05-24] MEDS: Thyroid 60 MG Tablet 120 MG GT (08:20)
[2020-05-24] MEDS: dexAMETHasone 4 MG Tablet 6 MG GT (08:20)
[2020-05-24] MEDS: Aspirin 81 MG TAB.CHEW GT (08:20)
[2020-05-24] MEDS: Enoxaparin 40 MG/0.4 ML Syringe SC ×2 (08:21→22:28)
[2020-05-24] MEDS: Senna/Docusate Sodium 1 Tablet 2 TABLET GT ×2 (08:21→22:27)
[2020-05-24] MEDS: Furosemide 40 MG/4 ML Vial IV (08:54)
--- NOTE | 2020-05-24 09:44 | CM.UR ---
Participated in interdisciplinary rounds this am. Remains on vent with high oxygen demand. Had to increase PEEP. Plan is TBD. Case management will remain available. Molly Torres RN, CCM.
--- NOTE | 2020-05-24 12:38 | PN_ITS ---
Patient Problems: Active and Suspected Problems (Last Reviewed 03/30/18 @ 15:21 by Makenzie Avery) Acute hypoxemic respiratory failure due to COVID-19 (Acute) Sepsis (Acute) Subjective: Patient was seen and examined today in ICU, she remains sedated and on the ventilator at this time, family members are in the room and according to nursing, they request that patient continue to have supportive treatment although she is a DNR CC arrest. Objective: General: No apparent distress, Well developed patient is sedated on the ventilator HEENT: Atraumatic, PERRLA, Normocephalic Oral: Moist Mucosa Neck: No JVD, Trachea Midline, Thyroid Normal Size and Texture Lungs: Normal air movement, Rhonchi - Expiratory rhonchi are scattered bilaterally Cardiovascular: Regular rate, Regular Rhythm, Normal S1, Normal S2, No murmurs, PMI Normal, No rub noted Abdomen: Bowel Sounds Present, Soft, Non Tender, Non-Distended, No hernias noted Extremities: No clubbing, No cyanosis, No edema, Capillary Refill Less than 3 Seconds Skin: No rashes, No breakdown Musculoskeletal: No joint swelling is noted Neurological: Cranial nerves II-XII grossly intact Psych/Mental Status: Patient is sedated and on the ventilator - Physical Exam Vitals/I&O's: Vital Signs Temp Pulse Resp BP Pulse Ox 102.2 F H 82 21 H 110/53 L 88 05/24/20 09:00 05/24/20 11:25 05/24/20 11:25 05/24/20 11:15 05/24/20 11:25 Oxygen Flow Rate (L/min) 100 Oxygen Delivery Method Mechanical Ventilator Weight: 86.9 kg Body Mass Index (BMI) 36.1 Intake and Output for Last 24 Hours 05/22/20 05/23/20 05/24/20 23:59 23:59 23:59 Intake Total 2104.99 / 2206.87 2929.22 / 2967.42 638.71 / 638.71 Output Total 1105 / 1105 3185 / 3585 1100 / 1100 Balance 999.99 / 1101.87 -255.78 / -617.58 -461.29 / -461.29 Microbiology Past 72 Hours 05/21/20 05:30 Sputum, Expectorated/Coughed Gram Stain - Final 05/21/20 05:30 Sputum, Expectorated/Coughed Respiratory Culture - Final Yeast, not Kassandra albicans 05/20/20 18:10 Blood Culture (Wb) - Right Forearm Blood Culture - Preliminary No growth in 48 hours. 05/20/20 17:55 Blood Culture (Wb) - Anticubital Right Blood Culture - Preliminary No growth in 48 hours. Laboratory Results 05/23/20 05:37: POC Glucose 247 H 05/23/20 11:40: POC Glucose 278 H 05/23/20 18:02: POC Glucose 386 H 05/24/20 00:14: POC Glucose 374 H 05/24/20 04:40: WBC 4.2 L, RBC 4.16 L, Hgb 11.8 L, Hct 37.6, MCV 90.4, MCH 28.4, MCHC 31.4 L, RDW Std Deviation 44.9 H, RDW Coeff of Dany 13.5, Plt Count 160, MPV 10.6, Differential Comment 05/24/20 04:40: Sodium 140, Potassium 4.0, Chloride 102, Carbon Dioxide 34.0 H, Anion Gap 4 L, BUN 28 H, Creatinine 0.77, Estim Creat Clear Calc 40.22, Est GFR (MDRD) Af Amer 95, Est GFR (MDRD) Non-Af 78, BUN/Creatinine Ratio 36.4 H, Glucose 336 H, Calcium 8.1 L, Total Bilirubin 0.30, AST 20, ALT 15, Alkaline Phosphatase 82, Total Protein 5.9 L, Albumin 2.0 L, Globulin 3.9, A lbumin/Globulin Ratio 0.5 L 05/24/20 05:49: POC Glucose 335 H Current Medications Acetaminophen (Acetaminophen 650 Mg/20 Ml Udc) 650 mg GT Q6H PRN PRN PRN Reason: TEMP > 100.5 F Last Admin: 05/24/20 05:51 Dose: 650 mg Documented by: Al Hydroxide/Mg Hydroxide (Mag Hydrox/Al Hydrox/Simeth 30 Ml Udc) 30 ml GT Q6H PRN PRN PRN Reason: Gastric Burning Albuterol Sulfate (Albuterol 2.5 Mg/3 Ml Vial.Neb.) 2.5 mg INHALATION Q2H PRN PRN PRN Reason: Dyspnea, wheezing Albuterol/Ipratropium (Ipratropium/Albuterol Sulfate 3 Ml Ampul.Neb) 3 ml INHALATION Q4HWA.RT BRITTANY Last Admin: 05/24/20 10:41 Dose: 3 ml Documented by: Aspirin (Aspirin 81 Mg Tab.Chew) 81 mg GT DAILY@0800 BRITTANY Last Admin: 05/24/20 08:20 Dose: 81 mg Documented by: Dexamethasone (Dexamethasone 4 Mg Tablet) 6 mg GT DAILY@0800 BRITTANY Stop: 05/29/20 08:01 Last Admin: 05/24/20 08:20 Dose: 6 mg Documented by: Enoxaparin Sodium (Enoxaparin 40 Mg/0.4 Ml Syringe) 40 mg SC BID [facility] Last Admin: 05/24/20 08:21 Dose: 40 mg Documented by: Sodium Chloride () 250 mls @ 15 mls/hr IV .[id number] PRN PRN Reason: Saline Flush Last Infusion: 05/24/20 09:00 Dose: 25 mls/hr Documented by: Sodium Chloride () 250 mls @ 15 mls/hr IV .[id number] PRN PRN Reason: Additional IVPB Infusion Remdesivir 100 mg/ Sodium (Chloride) 250 mls @ 125 mls/hr IV DAILY [facility]; Protocol Stop: 05/25/20 11:59 Last Admin: 05/24/20 12:35 Dose: 125 mls/hr Documented by: Propofol (Diprivan) 1,000 mg in 100 mls @ 5.274 mls/hr CONT INF .Q12H BRITTANY; Protocol Last Admin: 05/24/20 09:01 Dose: 25 mcg/kg/min, 13.2 mls/hr Documented by: Fentanyl Citrate 1,000 mcg/ (Sodium Chloride) 100 mls @ 2.5 mls/hr CONT INF .Q40H BRITTANY; Protocol Last Titration: 05/24/20 08:56 Dose: 175 mcg/hr, 17.5 mls/hr Documented by: Norepinephrine Bitartrate 8 mg (/ Sodium Chloride) 250 mls @ 9.375 mls/hr CONT INF .[id number] BRITTANY; Protocol Last Titration: 05/24/20 11:15 Dose: 4 mcg/min, 7.5 mls/hr Documented by: Pantoprazole Sodium 40 mg/ (Sodium Chloride) 110 mls @ 330 mls/hr IV Q24 BRITTANY Last Infusion: 05/24/20 09:10 Dose: Infused Documented by: Enteral Nutritional Formula (Vital Af 1.2 Stanley Liquid) 1,000 mls @ 60 mls/hr GT .[id number] [facility] Last Admin: 05/24/20 08:56 Dose: 60 mls/hr Documented by: Fluconazole (Diflucan) 200 mg in 100 mls @ 100 mls/hr IV Q24 BRITTANY Insulin Human Lispro (Insulin Lispro 100 Unit/Ml Insuln.Pen) 0 unit SC Q6 [facility]; Protocol Last Admin: 05/24/20 05:52 Dose: 5 units Documented by: Magnesium Hydroxide (Magnesium Hydroxide 30 Ml Udc) 30 ml GT DAILY PRN PRN PRN Reason: Constipation Miscellaneous Information (Inhaler, Assist Devices 1 Each Spacer) 1 each INHALATION PRN PRN PRN Reason: WITH AIRDUO MDI Senna/Docusate Sodium (Senna/Docusate Sodium 1 Tablet) 2 tablet GT BID [facility] Last Admin: 05/24/20 08:21 Dose: 2 tablet Documented by: Sodium Chloride (0.9% Saline Lock 10 Ml Syringe) 10 - 40 ml IV UD PRN PRN Reason: SALINE FLUSH Last Admin: 05/24/20 05:51 Dose: 20 ml Documented by: Sodium Chloride (Sodium Cl For Inhalation 15 Ml Vial.Neb.) 5 ml INHALATION Q5M PRN PRN Reason: Suctioning Throat Lozenges (Benzocaine/Menthol 1 Lozenge) 1 lozenge MUCOUS MEM Q2H PRN PRN PRN Reason: SORE THROAT Thyroid (Thyroid 60 Mg Tablet) 120 mg GT DAILY [facility] Last Admin: 05/24/20 08:20 Dose: 120 mg Documented by: Medical Necessity - Tobacco Use Smoking Status: Former smoker - Patient quit remotely but cannot give exact timeline, notes she smoked approximately 1 pack weekly but was unclear. Tobacco Use: Non-smoker Assessment/Plan All Active Problems (Last Reviewed 03/30/18 @ 15:21 by Makenzie Avery) Acute hypoxemic respiratory failure due to COVID-19 (Acute) Sepsis (Acute) Hx of diverticulitis of colon (Acute) Shortness of breath (Acute) Chest pain (Acute) Closed right ankle fracture (Acute) Acute respiratory failure with hypoxemia (Resolved) Hypokalemia (Resolved) #1 acute hypoxemic respiratory failure secondary to Covid 19 pneumonia-patient is now on the ventilator, critical care is seeing patient, patient is on a high PEEP setting #2 COVID-19 pneumonia-infectious diseases is seeing the patient, she will remain on medications per infectious diseases #3 septic shock-patient is currently on pressor agent #4 asthma-chronic, patient is not on oxygen at home #5 essential hypertension #6 hyperlipidemia #7 elevated glucose secondary to corticosteroid administration Inpatient E&M: [id number] Subs Hosp L2
[2020-05-24 16:01] LABS: Bedside Glucose 444 mg/dL (70-110)
[2020-05-24 20:31] LABS: Bedside Glucose 382 mg/dL (70-110)
--- NOTE | 2020-05-24 21:11 | NURSING ---
Attempted to decrease propofol to help BP, but pt became restless at 5mcg reduction;oxygen saturation dropped to 83% w/pt's restless movements. Propofol increased back to 25mcg/kg/min.
[2020-05-25] VITALS (45 sets, daily range): BP systolic 52–138; BP diastolic 29–82; PULSE 69–140; RESP 14–38; TEMP 36.3–37.7; O2SAT 82–92
[2020-05-25 00:15] LABS: Bedside Glucose 408 mg/dL (70-110)
--- NOTE | 2020-05-25 02:41 | NURSING ---
IV tubing for propofol replaced, slide-clamp was not removed quickly and pt became agitated. Movements were non-purposeful and unable to redirect pt. Pt's eyes open, minimal corneal reflex noted at this time. Monitor alarms for HR 145, pt in AFib at this time and oxygen sat drops to 80%. Pt having harsh cough, ETT sxd w/out results, deep oral sxn performed as well; HR remains in 120-130s.
[2020-05-25] MEDS: Propofol 10MG/Ml 1,000 MG/100 ML Bottle 13.2 MG CONT INF ×3 (02:45→12:35)
--- NOTE | 2020-05-25 03:47 | NURSING ---
Pt's PEEP is now up to 18 per RT.
[2020-05-25] MEDS: dilTIAZem 25 MG/5 ML Vial 20 MG IV BOLUS (04:35)
[2020-05-25] MEDS: 0.9% Saline Lock 10 ML Syringe IV (04:36)
--- NOTE | 2020-05-25 04:41 | EKG12_ITS ---
Test Reason : EKG CHANGE Blood Pressure : / mmHG Vent. Rate : 133 BPM Atrial Rate : 086 BPM P-R Int : 000 ms QRS Dur : 082 ms QT Int : 296 ms P-R-T Axes : 000 030 -15 degrees QTc Int : 440 ms Atrial fibrillation with premature ventricular or aberrantly conducted complexes Abnormal ECG When compared with ECG of 20-MAY-2020 17:59, Atrial fibrillation has replaced Sinus rhythm Nonspecific T wave abnormality now evident in Inferior leads Nonspecific T wave abnormality, improved in Lateral leads Confirmed by CAROLINE BOLES, FELIBERTO ([id number]), news videotape editor RIK KEE ([id number]) on 05/27/2020 11:05:53 AM Referred By: MARIA EUGENIA Confirmed By:FELIBERTO VELAZQUEZ MD
[2020-05-25 04:53] LABS: Hematocrit 38.7 % (37-47); Mean Corpuscular Hgb 28.6 pg (27.0-32.0); Mean Corpuscular Volume 92.1 fL (81-99); Platelet Count 145 K/mm3 (150-450); RBC Distribution Width CV 13.8 % (11.6-14.6); RBC Distribution Width SD 47.2 fl (35.1-43.9); White Blood Count 4.3 K/mm3 (4.4-11.0)
[2020-05-25 05:08] LABS: ALB/GLOB Ratio 0.4 RATIO (0.9-2.4); AST(SGOT) 46 U/L (15-37); Alanine Aminotransfer ALT/SGPT 17 U/L (13-56); Albumin, Serum 1.8 g/dL (3.2-5.0); Alkaline Phosphatase 84 U/L (45-117); Anion Gap 2 (5-15); BUN 34 mg/dL (7-18); BUN/Creat Ratio 49.9 RATIO (10-20); Calcium,Total 8.6 mg/dL (8.5-10.1); Chloride 105 mmol/L (98-107); Creatinine, Serum 0.68 mg/dL (0.55-1.02); EST Glomerular Filtration Rate 90 mL/min (>60); Est Glom Filt Rate - Afr Amer 109 mL/min (>60); Estimated Creatinine Clearance 40.22 ml/min; Globulin 4.5 g/dL (2.2-4.2); Glucose 375 mg/dL (74-106); Potassium 3.8 mmol/L (3.5-5.1); Protein, Total 6.3 g/dL (6.4-8.2); Sodium Level 144 mmol/L (136-145)
[2020-05-25] MEDS: Insulin Lispro 100 UNIT/ML INSULN.PEN SC ×4 (05:35→23:46)
[2020-05-25] MEDS: Vital AF 1.2 Cal Liquid 1,000 ML 60 ML GT ×2 (05:35→23:47)
--- NOTE | 2020-05-25 05:59 | PN_ITS ---
Subjective: The patient was seen and examined at the bedside this morning. Events from the last 24 hours have been reviewed. The patient is currently afebrile, hemodynamically stable and maintaining appropriate oxygen saturations on assist control mode of mechanical ventilation with an FiO2 requirement of 100% and PEEP of 18. The patient remains on Decadron and remdesivir. She has been intermittently receiving IV Lasix, despite vasopressor support. She is currently documented to be overall net +4.4 L for the hospital admission. The patient remains on Levophed at 3 mcg/min. Unfortunately, the patient also developed atrial fibrillation with rapid ventricular rate overnight. She was initially treated with IV Cardizem, with orders given for amiodarone this morning. Objective: The patient's most recent lab work, culture data and imaging studies have all been personally reviewed. Surface echocardiogram from 2016 revealed normal LV size and function with an ejection fraction of 60%. The RV was noted to be moderate lead to severely dilated with moderate severe global RV systolic dysfunction and a pulmonary artery systolic pressure estimated to be 31 mmHg. Coronavirus PCR was positive on May 16. General: - - Intubated, sedated and mechanically ventilated. HEENT: Atraumatic, Normocephalic Oral: No Gingival or Mucosal Lesions/ Ulcerations, - - Endotracheal and OG tubes remain in place. Neck: Supple, No Nodes, Trachea Midline, - - Stable right IJ central venous catheter Lungs: No rhonchi, No wheeze, No rales, Diminished, Tachypneic Cardiovascular: Normal S1, Normal S2, Irregular Rate, Tachycardic Abdomen: Bowel Sounds Present, Soft, Non Tender Extremities: No clubbing, No cyanosis, No edema Skin: - - No significant change from previous Musculoskeletal: No Muscle Wasting Neurological: - - No focal deficits. Remains sedated on the ventilator. Vital Signs Temp Pulse Resp BP Pulse Ox 98.7 F 114 H 21 H 126/57 H 87 05/25/20 05:00 05/25/20 05:00 05/25/20 05:00 05/25/20 05:00 05/25/20 05:00 Oxygen Flow Rate (L/min) 100 Oxygen Delivery Method Mechanical Ventilator Weight: 192 lb 10.944 oz Body Mass Index (BMI) 36.1 Intake and Output for Last 24 Hours 05/23/20 05/24/20 05/25/20 23:59 23:59 23:59 Intake Total 2929.22 / 2967.42 3533.64 / 3624.69 367.55 / 367.55 Output Total 3185 / 3585 3410 / 3410 550 / 550 Balance -255.78 / -617.58 123.64 / 214.69 -182.45 / -182.45 Labs (Last 48 Hours) 05/23/20 05/23/20 05/23/20 05:37 11:40 18:02 WBC RBC Hgb Hct MCV MCH MCHC RDW Std Deviation RDW Coeff of Dany Plt Count MPV Differential Comment Sodium Potassium Chloride Carbon Dioxide Anion Gap BUN Creatinine Estim Creat Clear Calc Est GFR (MDRD) Af Amer Est GFR (MDRD) Non-Af BUN/Creatinine Ratio Glucose Calcium Total Bilirubin AST ALT Alkaline Phosphatase Total Protein Albumin Globulin Albumin/Globulin Ratio POC Glucose 247 H 278 H 386 H 05/24/20 05/24/20 05/24/20 00:14 04:40 04:40 WBC 4.2 L RBC 4.16 L Hgb 11.8 L Hct 37.6 MCV 90.4 MCH 28.4 MCHC 31.4 L RDW Std Deviation 44.9 H RDW Coeff of Dany 13.5 Plt Count 160 MPV 10.6 Differential Comment Sodium 140 Potassium 4.0 Chloride 102 Carbon Dioxide 34.0 H Anion Gap 4 L BUN 28 H Creatinine 0.77 Estim Creat Clear Calc 40.22 Est GFR (MDRD) Af Amer 95 Est GFR (MDRD) Non-Af 78 BUN/Creatinine Ratio 36.4 H Glucose 336 H Calcium 8.1 L Total Bilirubin 0.30 AST 20 ALT 15 Alkaline Phosphatase 82 Total Protein 5.9 L Albumin 2.0 L Globulin 3.9 Albumin/Globulin Ratio 0.5 L POC Glucose 374 H 05/24/20 05/24/20 05/24/20 05:49 13:16 18:49 WBC RBC Hgb Hct MCV MCH MCHC RDW Std Deviation RDW Coeff of Dany Plt Count MPV Differential Comment Sodium Potassium Chloride Carbon Dioxide Anion Gap BUN Creatinine Estim Creat Clear Calc Est GFR (MDRD) Af Amer Est GFR (MDRD) Non-Af BUN/Creatinine Ratio Glucose Calcium Total Bilirubin AST ALT Alkaline Phosphatase Total Protein Albumin Globulin Albumin/Globulin Ratio POC Glucose 335 H 444 H 382 H 11/02/0305/25/20 05/25/20 23:11 04:35 04:35 WBC 4.3 L RBC 4.20 Hgb 12.0 Hct 38.7 MCV 92.1 MCH 28.6 MCHC 31.0 L RDW Std Deviation 47.2 H RDW Coeff of Dany 13.8 Plt Count 145 L MPV 11.0 Differential Comment Sodium 144 Potassium 3.8 Chloride 105 Carbon Dioxide 37.0 H Anion Gap 2 L BUN 34 H Creatinine 0.68 Estim Creat Clear Calc 40.22 Est GFR (MDRD) Af Amer 109 Est GFR (MDRD) Non-Af 90 BUN/Creatinine Ratio 49.9 H Glucose 375 H Calcium 8.6 Total Bilirubin 0.30 AST 46 H ALT 17 Alkaline Phosphatase 84 Total Protein 6.3 L Albumin 1.8 L Globulin 4.5 H Albumin/Globulin Ratio 0.4 L POC Glucose 408 H Microbiology 05/21/20 05:30 Sputum, Expectorated/Coughed Gram Stain - Final 05/21/20 05:30 Sputum, Expectorated/Coughed Respiratory Culture - Final Yeast, not Kassandra albicans 05/20/20 18:10 Blood Culture (Wb) - Right Forearm Blood Culture - Preliminary No growth in 48 hours. 05/20/20 17:55 Blood Culture (Wb) - Anticubital Right Blood Culture - Preliminary No growth in 48 hours. Clinical Impression(s) from Imaging Studies Chest X-Ray 05/20/20 17:54 IMPRESSION: Bilateral infiltrates Electronically Signed: Erci Zuñiga MD at 19:16 EST , Service support , Chest CTA 05/20/20 19:15 IMPRESSION: Bilateral nonspecific interstitial infiltrates indeterminate for covid 19. COPD and pulmonary fibrosis. Electronically Signed: Eric Zuñiga MD at 19:44 EST , Service support , Chest X-Ray 05/22/20 03:30 IMPRESSION: Findings are suspicious for underlying chronic lung disease with possible superimposed infiltrates. Lines as detailed above. Electronically Signed: Rosemary Rodriguez MD at 4:52 EST Tel , Service support , Chest X-Ray 05/22/20 05:02 IMPRESSION: Improvement in the upper lung zone interstitial infiltrates. There is persistent right greater than left lower lobe infiltrates. Endotracheal tube is 1.6 cm above the jac. Could Pull back 1 cm. Electronically Signed: Rosemary Rodriguez MD at 5:55 EST Tel , Service support , Chest X-Ray 05/24/20 05:45 IMPRESSION: No gross change in bilateral infiltrates. at 0643 Reported and signed by: Dona Robert MD Electronically Signed: Dona Robert MD at 6:43 EST Tel , Service support , Medical Necessity - Tobacco Use Smoking Status: Former smoker - Patient quit remotely but cannot give exact timeline, notes she smoked approximately 1 pack weekly but was unclear. Tobacco Use: Non-smoker Assessment/Plan All Active Problems (Last Reviewed 03/30/18 @ 15:21 by Makenzie Avery) Acute hypoxemic respiratory failure due to COVID-19 (Acute) Sepsis (Acute) Hx of diverticulitis of colon (Acute) Shortness of breath (Acute) Chest pain (Acute) Closed right ankle fracture (Acute) Acute respiratory failure with hypoxemia (Resolved) Hypokalemia (Resolved) RECOMMENDATIONS: 1. Continue current supportive measures with invasive mechanical ventilatory support and wean FiO2 and PEEP to maintain saturations at or above 90%. 2. Continue remdesivir and Decadron to complete treatment courses. 3. Continue Levophed and wean to maintain a mean arterial pressure at or above 65 mmHg. 4. Administer amiodarone bolus and start drip. 5. Continue tube feeds as tolerated. 6. Continue Protonix and Lovenox for ICU prophylaxis. 7. Continue bronchodilator therapy. 8. Continue fluconazole per ID recommendations. IMPRESSIONS: 1. Acute combined respiratory failure secondary to COVID-19 pneumonia The patient presented to the hospital with Covid pneumonia and subsequently decompensated from a respiratory perspective requiring intubation. Prior to being intubated, the patient refused convalescent plasma. Therefore, would plan to continue current supportive measures including remdesivir and Decadron as ordered. The patient will be continued on assist control mode of mechanical ventilation with plans to wean FiO2 to maintain oxygen saturations at or above 90%. The patient will be continued on tube feeds. Plan to continue gentle diuresis today, despite vasopressor requirement. The patient will be continued on fluconazole, following discussion with infectious diseases. 2. Distributive shock Likely multifactorial with a component of septic shock coupled with hemodynamic compromise induced by sedative medication use. 3. Self-reported history of COPD of unknown severity/history of provoked VTE Given that the patient has a self-reported history of COPD of unknown severity, she will be continued on bronchodilator therapy. CTA chest obtained on admission showed no evidence for pulmonary embolism. Therefore, continue DVT prophylaxis with Lovenox. 4. New onset atrial fibrillation with RVR Continue current supportive measures. We will start the patient on amiodarone today. Electrolytes are within normal limits. 5. History of hypertension/hyperlipidemia/hypothyroidism/GERD/prior tobacco dependency Complicates care, management, recovery and prognosis. Hold home antihypertensives. Continue appropriate GI prophylaxis. Continue Synthroid. CODE status: Discussed CODE status at length including difference between FULL code, DNR-CCA and DNR-CC status. Following discussions about the differences in these status, patient's family requested DNR CCA CODE STATUS. TIME: 38 minutes of critical care time, independent of procedures, was spent addressing the patient's acute combined respiratory failure secondary to COVID- 19 pneumonia, distributive shock, COPD, atrial fibrillation with RVR, review of all data and collaboration with the care team. ([id number]) [id number]: [id number] Critical care first hour
[2020-05-25] MEDS: Amiodarone 360 MG in Dextrose 5% Viaflo Bag 192.8 ML 33.3 MG CONT INF (07:09)
[2020-05-25] MEDS: Aspirin 81 MG TAB.CHEW GT (08:10)
[2020-05-25] MEDS: dexAMETHasone 4 MG Tablet 6 MG GT (08:10)
[2020-05-25] MEDS: Senna/Docusate Sodium 1 Tablet 2 TABLET GT (08:10)
[2020-05-25] MEDS: Enoxaparin 40 MG/0.4 ML Syringe SC ×2 (08:10→22:07)
[2020-05-25] MEDS: Thyroid 60 MG Tablet 120 MG GT (08:11)
--- NOTE | 2020-05-25 09:15 | PN_ITS ---
Patient Problems: Active and Suspected Problems (Last Reviewed 03/30/18 @ 15:21 by Makenzie Avery) Acute hypoxemic respiratory failure due to COVID-19 (Acute) Sepsis (Acute) Subjective: Patient was seen and examined today, she remains sedated on the ventilator, she requires high PEEP setting and 100% FiO2. Patient went into atrial flutter last night, critical care is adjusting her medications, family called in yesterday to state that they wanted the patient reintubated should the ET tube come out. Objective: General: No apparent distress, Well developed, patient is sedated on the ventilator HEENT: Atraumatic, PERRLA, Normocephalic Oral: Moist Mucosa Neck: No JVD, Trachea Midline, Thyroid Normal Size and Texture Lungs: Normal air movement, Rhonchi - Expiratory rhonchi are scattered bilaterally Cardiovascular: Regular rate, Regular Rhythm, Normal S1, Normal S2, No murmurs, PMI Normal, No rub noted Abdomen: Bowel Sounds Present, Soft, Non Tender, Non-Distended, No hernias noted Extremities: No clubbing, No cyanosis, No edema, Capillary Refill Less than 3 Seconds Skin: No rashes, No breakdown Musculoskeletal: No joint swelling is noted Neurological: Cranial nerves II-XII grossly intact Psych/Mental Status: Patient is sedated and on the ventilator - Physical Exam Vitals/I&O's: Vital Signs Temp Pulse Resp BP Pulse Ox 98.4 F 103 H 20 H 122/53 H 88 05/25/20 07:00 05/25/20 08:28 05/25/20 07:23 05/25/20 07:00 05/25/20 07:23 Oxygen Flow Rate (L/min) 100 Oxygen Delivery Method Mechanical Ventilator Weight: 87.4 kg Body Mass Index (BMI) 36.1 Intake and Output for Last 24 Hours 05/23/20 05/24/20 05/25/20 23:59 23:59 23:59 Intake Total 2929.22 / 2967.42 3533.64 / 3624.69 770.65 / 770.65 Output Total 3185 / 3585 3410 / 3410 800 / 800 Balance -255.78 / -617.58 123.64 / 214.69 -29.35 / -29.35 Microbiology Past 72 Hours 05/21/20 05:30 Sputum, Expectorated/Coughed Gram Stain - Final 05/21/20 05:30 Sputum, Expectorated/Coughed Respiratory Culture - Final Yeast, not Kassandra albicans 05/20/20 18:10 Blood Culture (Wb) - Right Forearm Blood Culture - Preliminary No growth in 48 hours. 05/20/20 17:55 Blood Culture (Wb) - Anticubital Right Blood Culture - Preliminary No growth in 48 hours. Laboratory Results 05/24/20 13:16: POC Glucose 444 H 05/24/20 18:49: POC Glucose 382 H 05/24/20 23:11: POC Glucose 408 H 05/25/20 04:35: WBC 4.3 L, RBC 4.20, Hgb 12.0, Hct 38.7, MCV 92.1, MCH 28.6, MCHC 31.0 L, RDW Std Deviation 47.2 H, RDW Coeff of Dany 13.8, Plt Count 145 L, MPV 11.0 05/25/20 04:35: Sodium 144, Potassium 3.8, Chloride 105, Carbon Dioxide 37.0 H, Anion Gap 2 L, BUN 34 H, Creatinine 0.68, Estim Creat Clear Calc 40.22, Est GFR (MDRD) Af Amer 109, Est GFR (MDRD) Non-Af 90, BUN/Creatinine Ratio 49.9 H, Glucose 375 H, Calcium 8.6, Total Bilirubin 0.30, AST 46 H, ALT 17, Alkaline Phosphatase 84, Total Protein 6.3 L, Albumin 1.8 L, Globulin 4.5 H, Albumin/Globulin Ratio 0.4 L Current Medications Acetaminophen (Acetaminophen 650 Mg/20 Ml Udc) 650 mg GT Q6H PRN PRN PRN Reason: TEMP > 100.5 F Last Admin: 05/24/20 20:09 Dose: 650 mg Documented by: Al Hydroxide/Mg Hydroxide (Mag Hydrox/Al Hydrox/Simeth 30 Ml Udc) 30 ml GT Q6H PRN PRN PRN Reason: Gastric Burning Albuterol Sulfate (Albuterol 2.5 Mg/3 Ml Vial.Neb.) 2.5 mg INHALATION Q2H PRN PRN PRN Reason: Dyspnea, wheezing Albuterol/Ipratropium (Ipratropium/Albuterol Sulfate 3 Ml Ampul.Neb) 3 ml INHALATION Q4HWA.RT [facility]ITT[facility] Last Admin: 05/24/20 19:05 Dose: 3 ml Documented by: Aspirin (Aspirin 81 Mg Tab.Chew) 81 mg GT DAILY@0800 [facility] Last Admin: 05/25/20 08:10 Dose: 81 mg Documented by: Dexamethasone (Dexamethasone 4 Mg Tablet) 6 mg GT DAILY@0800 [facility] Stop: 05/29/20 08:01 Last Admin: 05/25/20 08:10 Dose: 6 mg Documented by: Enoxaparin Sodium (Enoxaparin 40 Mg/0.4 Ml Syringe) 40 mg SC BID [facility] Last Admin: 05/25/20 08:10 Dose: 40 mg Documented by: Furosemide (Furosemide 40 Mg/4 Ml Vial) 40 mg IV BID@1000,1800 [facility] Sodium Chloride () 250 mls @ 15 mls/hr IV .[id number] PRN PRN Reason: Saline Flush Last Infusion: 05/25/20 00:00 Dose: 0 mls/hr Documented by: Sodium Chloride () 250 mls @ 15 mls/hr IV .[id number] PRN PRN Reason: Additional IVPB Infusion Remdesivir 100 mg/ Sodium (Chloride) 250 mls @ 125 mls/hr IV DAILY [facility]; Protocol Stop: 05/25/20 11:59 Last Infusion: 05/24/20 14:35 Dose: Infused Documented by: Propofol (Diprivan) 1,000 mg in 100 mls @ 5.274 mls/hr CONT INF .Q12H [facility]; Protocol Last Titration: 05/25/20 07:00 Dose: 25 mcg/kg/min, 13.2 mls/hr Documented by: Fentanyl Citrate 1,000 mcg/ (Sodium Chloride) 100 mls @ 2.5 mls/hr CONT INF .Q40H [facility]; Protocol Last Titration: 05/25/20 07:00 Dose: 150 mcg/hr, 15 mls/hr Documented by: Norepinephrine Bitartrate 8 mg (/ Sodium Chloride) 250 mls @ 9.375 mls/hr CONT INF .[id number] [facility]; Protocol Last Titration: 05/25/20 07:00 Dose: 3 mcg/min, 5.6 mls/hr Documented by: Pantoprazole Sodium 40 mg/ (Sodium Chloride) 110 mls @ 330 mls/hr IV Q24 [facility] Last Infusion: 05/24/20 09:10 Dose: Infused Documented by: Enteral Nutritional Formula (Vital Af 1.2 Stanley Liquid) 1,000 mls @ 60 mls/hr GT .[id number] [facility] Last Admin: 05/25/20 05:35 Dose: 60 mls/hr Documented by: Fluconazole (Diflucan) 200 mg in 100 mls @ 100 mls/hr IV Q24 [facility] Amiodarone HCl 360 mg/ (Dextrose) 200 mls @ 33.333 mls/hr CONT INF .Q6H [facility] Stop: 05/25/20 12:29 Last Admin: 05/25/20 07:09 Dose: 1 mg/min, 33.3 mls/hr Documented by: Amiodarone HCl 360 mg/ (Dextrose) 200 mls @ 16.667 mls/hr CONT INF .Q12H [facility] Stop: 05/26/20 06:29 Insulin Human Lispro (Insulin Lispro 100 Unit/Ml Insuln.Pen) 0 unit SC Q6 [facility]; Protocol Last Admin: 05/25/20 05:35 Dose: 6 units Documented by: Magnesium Hydroxide (Magnesium Hydroxide 30 Ml Udc) 30 ml GT DAILY PRN PRN PRN Reason: Constipation Miscellaneous Information (Inhaler, Assist Devices 1 Each Spacer) 1 each INHALATION PRN PRN PRN Reason: WITH VISHNUO MDI Senna/Docusate Sodium (Senna/Docusate Sodium 1 Tablet) 2 tablet GT BID [facility] Last Admin: 05/25/20 08:10 Dose: 2 tablet Documented by: Sodium Chloride (0.9% Saline Lock 10 Ml Syringe) 10 - 40 ml IV UD PRN PRN Reason: SALINE FLUSH Last Admin: 05/25/20 04:36 Dose: 30 ml Documented by: Sodium Chloride (Sodium Cl For Inhalation 15 Ml Vial.Neb.) 5 ml INHALATION Q5M PRN PRN Reason: Suctioning Throat Lozenges (Benzocaine/Menthol 1 Lozenge) 1 lozenge MUCOUS MEM Q2H PRN PRN PRN Reason: SORE THROAT Thyroid (Thyroid 60 Mg Tablet) 120 mg GT DAILY [facility] Last Admin: 05/25/20 08:11 Dose: 120 mg Documented by: Medical Necessity - Tobacco Use Smoking Status: Former smoker - Patient quit remotely but cannot give exact timeline, notes she smoked approximately 1 pack weekly but was unclear. Tobacco Use: Non-smoker Assessment/Plan All Active Problems (Last Reviewed 03/30/18 @ 15:21 by Makenzie Avery) Acute hypoxemic respiratory failure due to COVID-19 (Acute) Sepsis (Acute) Hx of diverticulitis of colon (Acute) Shortness of breath (Acute) Chest pain (Acute) Closed right ankle fracture (Acute) Acute respiratory failure with hypoxemia (Resolved) Hypokalemia (Resolved) #1 acute hypoxemic respiratory failure secondary to Covid 19 pneumonia-patient is now on the ventilator, critical care is seeing patient, patient is on a high PEEP setting, patient's respiratory status is unchanged from yesterday #2 COVID-19 pneumonia-infectious diseases is seeing the patient, she will remain on medications per infectious diseases #3 septic shock-patient is currently on pressor agent #4 asthma-chronic, patient is not on oxygen at home #5 essential hypertension #6 hyperlipidemia #7 elevated glucose secondary to corticosteroid administration Inpatient E&M: [id number] [facility] Hosp L2
[2020-05-25] MEDS: Furosemide 40 MG/4 ML Vial IV ×2 (10:24→17:26)
[2020-05-25] MEDS: Amiodarone 360 MG in Dextrose 5% Viaflo Bag 192.8 ML 16.7 MG CONT INF (13:37)
[2020-05-25 13:46] LABS: Bedside Glucose 406 mg/dL (70-110)
[2020-05-25 17:41] LABS: Bedside Glucose 416 mg/dL (70-110)
[2020-05-25] MEDS: Ipratropium/Albuterol Sulfate 3 ML AMPUL.NEB INHALATION (19:00)
[2020-05-25] MEDS: Propofol 10MG/Ml 1,000 MG/100 ML Bottle 7.9 MG CONT INF (19:30)
--- NOTE | 2020-05-25 20:30 | NURSING ---
Pt noted to breathing spontaneously over the vent, vent mode changed over to APRV;pt oxygen sat drops momentarily, then slowly recovers to 88%.
--- NOTE | 2020-05-25 22:00 | NURSING ---
RT notified that pt's work of breathing has significantly increased, HR increased to 140s. RT calls and notifies of vital sign changes and pt's condition; pt changed to AC/VC+ and sedation is to be increased to allow vent synchrony.
[2020-05-25 23:56] LABS: Bedside Glucose 367 mg/dL (70-110)
[2020-05-26] VITALS (47 sets, daily range): BP systolic 78–123; BP diastolic 46–86; PULSE 71–143; RESP 19–97; TEMP 36.8–38.4; O2SAT 82–92
[2020-05-26] MEDS: Propofol 10MG/Ml 1,000 MG/100 ML Bottle 10.5 MG CONT INF ×2 (00:45→04:00)
[2020-05-26] MEDS: Amiodarone 360 MG in Dextrose 5% Viaflo Bag 192.8 ML 16.7 MG CONT INF ×2 (01:16→13:41)
--- NOTE | 2020-05-26 04:30 | NURSING ---
Pt becoming increasingly desynchronous w/vent, sedation increased as per verbal communication on 05/25/20 2200.
[2020-05-26 04:33] LABS: Hematocrit 40.1 % (37-47); Hemoglobin 12.2 g/dL (12.0-15.0); Mean Corp Hgb Conc 30.4 g/dL (32-36); Mean Corpuscular Hgb 28.3 pg (27.0-32.0); Mean Platelet Vol. 11.4 fl (6.2-12.0); Platelet Count 149 K/mm3 (150-450); RBC Distribution Width CV 13.8 % (11.6-14.6); RBC Distribution Width SD 46.9 fl (35.1-43.9); Red Blood Count 4.31 M/mm3 (4.2-5.4); White Blood Count 4.4 K/mm3 (4.4-11.0)
[2020-05-26 04:51] LABS: ALB/GLOB Ratio 0.4 RATIO (0.9-2.4); AST(SGOT) 40 U/L (15-37); Alanine Aminotransfer ALT/SGPT 21 U/L (13-56); Albumin, Serum 1.7 g/dL (3.2-5.0); Alkaline Phosphatase 86 U/L (45-117); Anion Gap 3 (5-15); BUN 49 mg/dL (7-18); Calcium,Total 8.8 mg/dL (8.5-10.1); Chloride 103 mmol/L (98-107); EST Glomerular Filtration Rate 74 mL/min (>60); Est Glom Filt Rate - Afr Amer 90 mL/min (>60); Estimated Creatinine Clearance 50.27 ml/min; Globulin 4.7 g/dL (2.2-4.2); Glucose 397 mg/dL (74-106); Potassium 4.2 mmol/L (3.5-5.1); Protein, Total 6.4 g/dL (6.4-8.2); Sodium Level 143 mmol/L (136-145)
--- NOTE | 2020-05-26 05:06 | CPS ---
Pt switched to APRV settings per Dr. Jones
--- NOTE | 2020-05-26 05:07 | CPS ---
Pt switched to VC+ mode d/t pt dyssynchrony in APRV mode.
[2020-05-26] MEDS: Insulin Lispro 100 UNIT/ML INSULN.PEN SC ×4 (05:16→23:08)
--- NOTE | 2020-05-26 06:09 | NURSING ---
Pt's dtr Rachana called and questioned if staff received the recommendation from her sister Dimple regarding ECMO treatment last night. Rachana informed that this facility does not have the accommodations to perform ECMO and Rachana was also honestly informed that her mother's condition was so unstable that transportation to a facility that did do ECMO would not be advisable. Rachana was given updates on her mother's overall deconditioning through the night and increasing ventilator support and attempted changes that failed; Rachana informed this RN that her sister Dimple was to be called this AM for rounds communications because she can't think clearly at this time.
--- NOTE | 2020-05-26 06:38 | NURSING ---
Pt's dtr Dimple called after being informed by her sister Rachana that Mom was not doing well and did not have a good night. Dimple was in tears and yelling at this RN that she wants to have staff change her status to a FULL CODE! We're tired of being told that this hospital can not do this or do that! Just make her a full code and do absolutely everything for her! Dimple informed directly of her mother's most recent assessment findings, informed that performing CPR on her mom at this time would maybe give them another 5-10minutes; but that performing CPR would inflict significant discomfort and doesn't change how we treat her currently. Dimple agrees to leave pt's code status as it is and don't change anything.
[2020-05-26] MEDS: Ipratropium/Albuterol Sulfate 3 ML AMPUL.NEB INHALATION ×4 (07:16→18:58)
--- NOTE | 2020-05-26 08:12 | PCM.PROGNOTE ---
Patient Problems: Active and Suspected Problems (Last Reviewed 03/30/18 @ 15:21 by Makenzie Avery) Acute hypoxemic respiratory failure due to COVID-19 (Acute) Sepsis (Acute) Subjective: Patient was seen and examined today, she remains sedated and on the ventilator. Patient is on 100% O2, she is having difficulty maintaining her saturation. Patient remains in atrial flutter. Objective: General: No apparent distress, Well developed, patient is sedated on the ventilator HEENT: Atraumatic, PERRLA, Normocephalic Oral: Moist Mucosa Neck: No JVD, Trachea Midline, Thyroid Normal Size and Texture Lungs: Normal air movement, Rhonchi - Expiratory rhonchi are scattered bilaterally Cardiovascular: Regular rate, Regular Rhythm, Normal S1, Normal S2, No murmurs, PMI Normal, No rub noted Abdomen: Bowel Sounds Present, Soft, Non Tender, Non-Distended, No hernias noted Extremities: No clubbing, No cyanosis, No edema, Capillary Refill Less than 3 Seconds Skin: No rashes, No breakdown Musculoskeletal: No joint swelling is noted Neurological: Cranial nerves II-XII grossly intact Psych/Mental Status: Patient is sedated and on the ventilator - Physical Exam Vitals/I&O's: Vital Signs Temp Pulse Resp BP Pulse Ox 99.3 F H 101 H 22 H 84/59 L 84 05/26/20 07:00 05/26/20 07:17 05/26/20 07:17 05/26/20 07:00 05/26/20 07:00 Oxygen Flow Rate (L/min) 100 Oxygen Delivery Method Mechanical Ventilator Weight: 88.1 kg Body Mass Index (BMI) 36.1 Intake and Output for Last 24 Hours 05/24/20 05/25/20 05/26/20 23:59 23:59 23:59 Intake Total 3533.64 / 3624.69 2147.55 / 2515.55 995.85 / 995.85 Output Total 3410 / 3410 2580 / 2715 1485 / 1485 Balance 123.64 / 214.69 -432.45 / -199.45 -489.15 / -489.15 Microbiology Past 72 Hours 05/21/20 05:30 Sputum, Expectorated/Coughed Gram Stain - Final 05/21/20 05:30 Sputum, Expectorated/Coughed Respiratory Culture - Final Yeast, not Kassandra albicans 05/20/20 18:10 Blood Culture (Wb) - Right Forearm Blood Culture - Preliminary No growth in 48 hours. 05/20/20 17:55 Blood Culture (Wb) - Anticubital Right Blood Culture - Preliminary No growth in 48 hours. Laboratory Results 05/25/20 13:33: POC Glucose 406 H 05/25/20 17:23: POC Glucose 416 H 05/25/20 23:38: POC Glucose 367 H 05/26/20 04:25: WBC 4.4, RBC 4.31, Hgb 12.2, Hct 40.1, MCV 93.0, MCH 28.3, MCHC 30.4 L, RDW Std Deviation 46.9 H, RDW Coeff of Dany 13.8, Plt Count 149 L, MPV 11.4 05/26/20 04:25: Sodium 143, Potassium 4.2, Chloride 103, Carbon Dioxide 37.0 H, Anion Gap 3 L, BUN 49 H, Creatinine 0.80, Estim Creat Clear Calc 50.27, Est GFR (MDRD) Af Amer 90, Est GFR (MDRD) Non-Af 74, BUN/Creatinine Ratio 61.0 H, Glucose 397 H, Calcium 8.8, Total Bilirubin 0.40, AST 40 H, ALT 21, Alkaline Phosphatase 86, Total Protein 6.4, Albumin 1.7 L, Globulin 4.7 H, Albumin/Globulin Ratio 0.4 L Current Medications Acetaminophen (Acetaminophen 650 Mg/20 Ml Udc) 650 mg GT Q6H PRN PRN PRN Reason: TEMP > 100.5 F Last Admin: 05/24/20 20:09 Dose: 650 mg Documented by: Al Hydroxide/Mg Hydroxide (Mag Hydrox/Al Hydrox/Simeth 30 Ml Udc) 30 ml GT Q6H PRN PRN PRN Reason: Gastric Burning Albuterol Sulfate (Albuterol 2.5 Mg/3 Ml Vial.Neb.) 2.5 mg INHALATION Q2H PRN PRN PRN Reason: Dyspnea, wheezing Albuterol/Ipratropium (Ipratropium/Albuterol Sulfate 3 Ml Ampul.Neb) 3 ml INHALATION Q4HWA.RT BRITTANY Last Admin: 05/26/20 07:16 Dose: 3 ml Documented by: Aspirin (Aspirin 81 Mg Tab.Chew) 81 mg GT DAILY@0800 [facility] Last Admin: 05/25/20 08:10 Dose: 81 mg Documented by: Dexamethasone (Dexamethasone 4 Mg Tablet) 6 mg GT DAILY@0800 [facility] Stop: 05/29/20 08:01 Last Admin: 05/25/20 08:10 Dose: 6 mg Documented by: Enoxaparin Sodium (Enoxaparin 40 Mg/0.4 Ml Syringe) 40 mg SC BID [facility] Last Admin: 05/25/20 22:07 Dose: 40 mg Documented by: Furosemide (Furosemide 40 Mg/4 Ml Vial) 40 mg IV BID@1000,1800 [facility] Last Admin: 05/25/20 17:26 Dose: 40 mg Documented by: Sodium Chloride () 250 mls @ 15 mls/hr IV .[id number] PRN PRN Reason: Saline Flush Last Infusion: 05/25/20 00:00 Dose: 0 mls/hr Documented by: Sodium Chloride () 250 mls @ 15 mls/hr IV .[id number] PRN PRN Reason: Additional IVPB Infusion Propofol (Diprivan) 1,000 mg in 100 mls @ 5.274 mls/hr CONT INF .Q12H [facility]; Protocol Last Titration: 05/26/20 07:00 Dose: 25 mcg/kg/min, 13.2 mls/hr Documented by: Fentanyl Citrate 1,000 mcg/ (Sodium Chloride) 100 mls @ 2.5 mls/hr CONT INF .Q40H [facility]; Protocol Last Titration: 05/26/20 07:00 Dose: 125 mcg/hr, 12.5 mls/hr Documented by: Norepinephrine Bitartrate 8 mg (/ Sodium Chloride) 250 mls @ 9.375 mls/hr CONT INF .[id number] [facility]; Protocol Last Titration: 05/26/20 07:00 Dose: 1 mcg/min, 1.9 mls/hr Documented by: Pantoprazole Sodium 40 mg/ (Sodium Chloride) 110 mls @ 330 mls/hr IV Q24 [facility] Last Infusion: 05/25/20 10:09 Dose: Infused Documented by: Enteral Nutritional Formula (Vital Af 1.2 Stanley Liquid) 1,000 mls @ 60 mls/hr GT .[id number] [facility] Last Admin: 05/25/20 23:47 Dose: 60 mls/hr Documented by: Fluconazole (Diflucan) 200 mg in 100 mls @ 100 mls/hr IV Q24 [facility] Last Infusion: 05/25/20 11:24 Dose: Infused Documented by: Insulin Glargine (Insulin Glargine 100 Units/Ml Pen) 10 units SC BID [facility] Insulin Human Lispro (Insulin Lispro 100 Unit/Ml Insuln.Pen) 0 unit SC Q6 [facility]; Protocol Last Admin: 05/26/20 05:16 Dose: 6 units Documented by: Magnesium Hydroxide (Magnesium Hydroxide 30 Ml Udc) 30 ml GT DAILY PRN PRN PRN Reason: Constipation Miscellaneous Information (Inhaler, Assist Devices 1 Each Spacer) 1 each INHALATION PRN PRN PRN Reason: WITH AIRDUO MDI Senna/Docusate Sodium (Senna/Docusate Sodium 1 Tablet) 2 tablet GT BID [facility] Last Admin: 05/25/20 22:08 Dose: Not Given Documented by: Sodium Chloride (0.9% Saline Lock 10 Ml Syringe) 10 - 40 ml IV UD PRN PRN Reason: SALINE FLUSH Last Admin: 05/25/20 04:36 Dose: 30 ml Documented by: Sodium Chloride (Sodium Cl For Inhalation 15 Ml Vial.Neb.) 5 ml INHALATION Q5M PRN PRN Reason: Suctioning Throat Lozenges (Benzocaine/Menthol 1 Lozenge) 1 lozenge MUCOUS MEM Q2H PRN PRN PRN Reason: SORE THROAT Thyroid (Thyroid 60 Mg Tablet) 120 mg GT DAILY [facility] Last Admin: 05/25/20 08:11 Dose: 120 mg Documented by: Medical Necessity - Tobacco Use Smoking Status: Former smoker - Patient quit remotely but cannot give exact timeline, notes she smoked approximately 1 pack weekly but was unclear. Tobacco Use: Non-smoker Assessment/Plan All Active Problems (Last Reviewed 03/30/18 @ 15:21 by Makenzie Avery) Acute hypoxemic respiratory failure due to COVID-19 (Acute) Sepsis (Acute) Hx of diverticulitis of colon (Acute) Shortness of breath (Acute) Chest pain (Acute) Closed right ankle fracture (Acute) Acute respiratory failure with hypoxemia (Resolved) Hypokalemia (Resolved) #1 acute hypoxemic respiratory failure secondary to Covid 19 pneumonia-patient is now on the ventilator, critical care is seeing patient, patient is on a high PEEP setting, patient's respiratory status is unchanged from yesterday, outlook is guarded secondary to multiple medical problems. #2 COVID-19 pneumonia-infectious diseases is seeing the patient, she will remain on medications per infectious diseases #3 septic shock-patient is currently on pressor agent #4 asthma-chronic, patient is not on oxygen at home #5 essential hypertension #6 hyperlipidemia #7 elevated glucose secondary to corticosteroid administration Inpatient E&M: [id number] [facility] Hosp L2
[2020-05-26] MEDS: Propofol 10MG/Ml 1,000 MG/100 ML Bottle 13.2 MG CONT INF ×3 (09:36→19:30)
--- NOTE | 2020-05-26 10:35 | CASEMGMT ---
SW participated in ICU rounds this morning, daughter Dimple was called during rounds. SW called Dimple after rounds and offered support. We discussed the pt and what her wishes would be should she be able to make decisions for herself. Dimple explained that she doesn't know what the pt's decisions would be, but she knows that pt would fight for her and pt's other daughter. At the same time, she states that she does not want pt to suffer. SW offered supportive listening to daughter, gave SW number to Dimple and told her she can call back if needed with any questions, and if needs to talk. SW also let her know that she can pass the number on to her sister Rachana if Rachana needs to talk. Daughter states understanding and thanked JETT. She also states that she found Dr. Garcia to be compassionate during rounds this morning and she appreciated that. SW asked daughter about decision making in regard to pt's Zohaib. She states Zohaib is their step dad, and they all get along well. She states Zohaib has said he wants the daughters to make decisions as he does not want to make the wrong decision. She states that he is getting over COVID himself. SW explained will call Zohaib Valle just to verify, daughter Dimple states understanding. SW called Zohaib Valle. He states he is feeling very weak, still has COVID. SW asked Zohaib about decision making, he is in agreement with daughters making decisions for pt. Zohaib expressed concern for pt, and the frustration with only being able to drop her off in the ER as he has COVID too. SW offered support to . SW remains available for any additional supportive needs for family. EVE Verdugo
[2020-05-26] MEDS: Enoxaparin 40 MG/0.4 ML Syringe SC ×2 (10:45→22:59)
[2020-05-26] MEDS: Furosemide 40 MG/4 ML Vial IV ×2 (10:45→17:12)
[2020-05-26] MEDS: dexAMETHasone 4 MG Tablet 6 MG GT (10:46)
[2020-05-26] MEDS: Thyroid 60 MG Tablet 120 MG GT (10:46)
[2020-05-26] MEDS: Aspirin 81 MG TAB.CHEW GT (10:46)
[2020-05-26] MEDS: Senna/Docusate Sodium 1 Tablet 2 TABLET GT ×2 (10:59→22:59)
[2020-05-26] MEDS: Vital AF 1.2 Cal Liquid 1,000 ML 60 ML GT ×2 (11:00→18:01)
[2020-05-26 11:25] LABS: Bedside Glucose 405 mg/dL (70-110)
--- NOTE | 2020-05-26 13:27 | PN_ITS ---
Subjective: Patient with significant issues overnight. Patient with significant tachycardia overnight requiring reinitiation of amiodarone drip. Attempts at APRV were unsuccessful secondary to vent dyssynchrony. Nursing said the patient tolerated it well at first, but then developed tachycardia and dyssynchrony and was switched back General: - - Intubated and sedated. Obese. Fair vent synchrony. HEENT: - - Proptosis noted. Oral: Moist Mucosa, No Gingival or Mucosal Lesions/ Ulcerations Neck: Supple, No JVD, No Nodes, Trachea Midline Lungs: No rhonchi, No wheeze, No rales, Diminished, Tachypneic Cardiovascular: Normal S1, Normal S2, No murmurs, Irregular Rate, No rub noted, No Gallop, Tachycardic Abdomen: Bowel Sounds Present, Soft, Non Tender, Distended - Slightly, Obese Extremities: No clubbing, No cyanosis, Edema Skin: - - No rashes or breakdown appreciated. Patient very sensitive to movement, so was not rolled over Musculoskeletal: No Tenderness to Palpation of Joints or Extremities Lymphatic: No Cervical, Supraclavicular, or Inguinal Adenopathy Neurological: - - Positive cough and gag. Not opening eyes to voice. Psych/Mental Status: Flat Affect Vital Signs Temp Pulse Resp BP Pulse Ox 38.4 C H 88 25 H 86/56 L 84 05/26/20 12:00 05/26/20 12:00 05/26/20 12:00 05/26/20 12:00 05/26/20 12:00 Oxygen Flow Rate (L/min) 100 Oxygen Delivery Method Mechanical Ventilator Weight: 88.1 kg Body Mass Index (BMI) 36.1 Intake and Output for Last 24 Hours 05/24/20 05/25/20 05/26/20 23:59 23:59 23:59 Intake Total 3533.64 / 3624.69 2147.55 / 2515.55 1453.29 / 1453.29 Output Total 3410 / 3410 2580 / 2715 2034 Balance 123.64 / 214.69 -432.45 / -199.45 -581.71 / -581.71 Labs (Last 48 Hours) 05/24/20 05/24/20 05/24/20 13:16 18:49 23:11 WBC RBC Hgb Hct MCV MCH MCHC RDW Std Deviation RDW Coeff of Dany Plt Count MPV Sodium Potassium Chloride Carbon Dioxide Anion Gap BUN Creatinine Estim Creat Clear Calc Est GFR (MDRD) Af Amer Est GFR (MDRD) Non-Af BUN/Creatinine Ratio Glucose Calcium Total Bilirubin AST ALT Alkaline Phosphatase Total Protein Albumin Globulin Albumin/Globulin Ratio POC Glucose 444 H 382 H 408 H 05/25/20 05/25/20 05/25/20 04:35 04:35 13:33 WBC 4.3 L RBC 4.20 Hgb 12.0 Hct 38.7 MCV 92.1 MCH 28.6 MCHC 31.0 L RDW Std Deviation 47.2 H RDW Coeff of Dany 13.8 Plt Count 145 L MPV 11.0 Sodium 144 Potassium 3.8 Chloride 105 Carbon Dioxide 37.0 H Anion Gap 2 L BUN 34 H Creatinine 0.68 Estim Creat Clear Calc 40.22 Est GFR (MDRD) Af Amer 109 Est GFR (MDRD) Non-Af 90 BUN/Creatinine Ratio 49.9 H Glucose 375 H Calcium 8.6 Total Bilirubin 0.30 AST 46 H ALT 17 Alkaline Phosphatase 84 Total Protein 6.3 L Albumin 1.8 L Globulin 4.5 H Albumin/Globulin Ratio 0.4 L POC Glucose 406 H 05/25/20 05/25/20 05/26/20 17:23 23:38 04:25 WBC 4.4 RBC 4.31 Hgb 12.2 Hct 40.1 MCV 93.0 MCH 28.3 MCHC 30.4 L RDW Std Deviation 46.9 H RDW Coeff of Dany 13.8 Plt Count 149 L MPV 11.4 Sodium Potassium Chloride Carbon Dioxide Anion Gap BUN Creatinine Estim Creat Clear Calc Est GFR (MDRD) Af Amer Est GFR (MDRD) Non-Af BUN/Creatinine Ratio Glucose Calcium Total Bilirubin AST ALT Alkaline Phosphatase Total Protein Albumin Globulin Albumin/Globulin Ratio POC Glucose 416 H 367 H 05/26/20 05/26/20 04:25 10:43 WBC RBC Hgb Hct MCV MCH MCHC RDW Std Deviation RDW Coeff of Dany Plt Count MPV Sodium 143 Potassium 4.2 Chloride 103 Carbon Dioxide 37.0 H Anion Gap 3 L BUN 49 H Creatinine 0.80 Estim Creat Clear Calc 50.27 Est GFR (MDRD) Af Amer 90 Est GFR (MDRD) Non-Af 74 BUN/Creatinine Ratio 61.0 H Glucose 397 H Calcium 8.8 Total Bilirubin 0.40 AST 40 H ALT 21 Alkaline Phosphatase 86 Total Protein 6.4 Albumin 1.7 L Globulin 4.7 H Albumin/Globulin Ratio 0.4 L POC Glucose 405 H Microbiology 05/24/20 08:40 Urine Catheter - Catheter Urine Culture - Final Culture exhibits no growth. 05/20/20 18:10 Blood Culture (Wb) - Right Forearm Blood Culture - Final No growth in 5 days. 05/20/20 17:55 Blood Culture (Wb) - Anticubital Right Blood Culture - Final No growth in 5 days. Medical Necessity - Tobacco Use Smoking Status: Former smoker - Patient quit remotely but cannot give exact timeline, notes she smoked approximately 1 pack weekly but was unclear. Tobacco Use: Non-smoker Assessment/Plan All Active Problems (Last Reviewed 03/30/18 @ 15:21 by Makenzie Avery) Acute hypoxemic respiratory failure due to COVID-19 (Acute) Sepsis (Acute) Hx of diverticulitis of colon (Acute) Shortness of breath (Acute) Chest pain (Acute) Closed right ankle fracture (Acute) Acute respiratory failure with hypoxemia (Resolved) Hypokalemia (Resolved) RECOMMENDATIONS: 1. Continue current supportive measures with invasive mechanical ventilatory support and wean FiO2 and PEEP to maintain saturations at or above 90%. 2. Continue remdesivir and Decadron to complete treatment courses. Continue bronchodilator therapy 3. Continue Levophed and wean to maintain a mean arterial pressure at or above 65 mmHg. 4. Continue amiodarone drip 5. Continue tube feeds as tolerated. 6. Continue Protonix and Lovenox for ICU prophylaxis. 7. Possibly attempt transition to APRV later today 8. Continue fluconazole per ID recommendations. IMPRESSIONS: 1. Acute combined respiratory failure secondary to COVID-19 pneumonia The patient presented to the hospital with Covid pneumonia and subsequently decompensated from a respiratory perspective requiring intubation. Prior to being intubated, the patient refused convalescent plasma. Therefore, would plan to continue current supportive measures including remdesivir and Decadron as ordered. Patient with ARDS physiology with extensive shunting noted. Extensive conversation with daughter this morning and answering questions about ECMO therapy. Do not believe patient would survive any transport at this time. May attempt transition APRV this afternoon to see if recruitment and oxygenation would improve. Patient is not a good candidate for proning given body habitus. Review of previous CT shows multiple pre-existing pulmonary issues such as emphysema and bronchiectasis. 2. Distributive shock Likely multifactorial with a component of septic shock coupled with hemodynamic compromise induced by sedative medication use. 3. Self-reported history of COPD of unknown severity/history of provoked VTE Given that the patient has a self-reported history of COPD of unknown severity, she will be continued on bronchodilator therapy. CTA chest obtained on admission showed no evidence for pulmonary embolism. Therefore, continue DVT prophylaxis with Lovenox. 4. New onset atrial fibrillation with RVR Continue current supportive measures. Amiodarone drip for now. Electrolytes are within normal limits. 5. History of hypertension/hyperlipidemia/hypothyroidism/GERD/prior tobacco dependency Complicates care, management, recovery and prognosis. Hold home antihypertensives. Continue appropriate GI prophylaxis. Continue Synthroid. CODE status: Discussed CODE status at length including difference between FULL code, DNR-CCA and DNR-CC status. Following discussions about the differences in these status, patient's family requested DNR CCA CODE STATUS. Addendum 6:33 PM: Patient transition to APRV at approximately 1 PM earlier today. Patient did have some desaturations initially, but ABG showed adequate oxygenation and ventilation on the current settings. Patient did have some improvement with APRV, so this was continued. No change in medications were required. TIME: 80 minutes of critical care time, independent of procedures, was spent addre ssing the patient's acute combined respiratory failure secondary to COVID-19 pneumonia, distributive shock, COPD, atrial fibrillation with RVR, review of all data and collaboration with the care team. (8 AM to 10 AM, 1 PM to 4 PM) 9xxxx: [id number] Critical care first hour Multi Select Codes - Hospitalists' Procedures Procedures: 19382 Critial Care Addl 30 Min
--- NOTE | 2020-05-26 13:38 | CHAPLAIN ---
Type of Pastoral Visit ___ Initial Visit ___ Follow-up Visit ___ On-call Visit ___ General Patient Visit ___ Spiritual Assessment ___ Family Conference ___ Bereavement ___ Rapid Response ___ Code Blue _x__ Other (describe below) Pastoral Care Referral From ___ Patient ___ Family _x__ Nurse ___ Physician _x__ Slurry Control Operator Helper ___ Co Pilot _x__ Other - Family Therapist (describe below) Sacrament/Intervention ___ Active listening ___ Anointing ___ Druze ___ Bereavement ___ Communion ___ Priscilla exploration ___ ___ Life review ___ Prayer ___ Reconciliation ___ Sacrament of Sick ___ Supportive presence ___ Wedding _x__ Other (describe below) Pastoral Comments alerted to condition of this patient by Family Therapist and then SW for ICU; stood at doorway to offer prayers; made phone calls of support to spouse and to daughter; both received the supportive call with expressions of thankfulness for concern and for prayer; proper understanding of severity of illness of patient is shown by both; both express desire for prayers and the work of God to restore patient to health; pt has two churches that she attends and a technology adoption manager at [employer] has been notified of her status
[2020-05-26] MEDS: Insulin Lispro 100 UNIT/ML INSULN.PEN 20 UNIT SC (14:15)
[2020-05-26 14:30] LABS: Bedside Glucose 409 mg/dL (70-110)
[2020-05-26 15:31] LABS: Allen Test Positive; Base Excess 13 mmol/L (-2 to +2); Bicarbonate 38.1 mmol/L (22-26); Blood Gas Specimen Type ART; FI02 100; Mode BiLevel; O2 Delivery Device Adult Vent; PO2 50 mmHG (75-100); SITE L Radial; SO2 82 % (95-99); Total Carbon Dioxide 40 mmol/L; pH 7.36 (7.35-7.45)
--- NOTE | 2020-05-26 15:31 | NURSING ---
This RN spoke with daughter, Rachana, over the phone. Rachana asked this RN about the medications the patient was getting. This RN reviewed the medication list. Rachana questioned about giving patient vitamin C, zinc and albumin. I explained to the daughter that I could discuss with the MD about these medications, however it is up to the MD to order above medications if appropriate. Daughter acknowledged this. Dr. Garcia notified of above.
--- NOTE | 2020-05-26 16:04 | PCM.HOSP.N ---
Hospitalist Note I received word from nursing today that the patient's family members called to change the patient's CODE STATUS to full code, this was entered in the computer.
--- NOTE | 2020-05-26 16:46 | PCM.PN.ID ---
Patient Problems: Active and Suspected Problems (Last Reviewed 03/30/18 @ 15:21 by Makenzie Avery) Acute hypoxemic respiratory failure due to COVID-19 (Acute) Sepsis (Acute) Subjective: On vent, pressors, fever 101.1 - Physical Exam Vitals/I&O's: Vital Signs Temp Pulse Resp BP Pulse Ox 101.1 F H 86 29 H 101/54 L 86 05/26/20 12:00 05/26/20 15:31 05/26/20 15:31 05/26/20 15:00 05/26/20 15:31 Oxygen Flow Rate (L/min) 100 Oxygen Delivery Method Mechanical Ventilator Weight: 88.1 kg Body Mass Index (BMI) 36.1 Intake and Output for Last 24 Hours 05/24/20 05/25/20 05/26/20 23:59 23:59 23:59 Intake Total 3533.64 / 3624.69 2147.55 / 2515.55 1676.75 / 1676.75 Output Total 3410 / 3410 2580 / 2715 2885 / 2885 Balance 123.64 / 214.69 -432.45 / -199.45 -1208.25 / -1208.25 General: Non-Cooperative Lungs: Diminished Cardiovascular: Tachycardic Abdomen: Soft, Non Tender, Non-Distended Skin: No rashes Microbiology Past 72 Hours 05/24/20 08:40 Urine Catheter - Catheter Urine Culture - Final Culture exhibits no growth. 05/20/20 18:10 Blood Culture (Wb) - Right Forearm Blood Culture - Final No growth in 5 days. 05/20/20 17:55 Blood Culture (Wb) - Anticubital Right Blood Culture - Final No growth in 5 days. Laboratory Results 05/25/20 17:23: POC Glucose 416 H 05/25/20 23:38: POC Glucose 367 H 05/26/20 04:25: WBC 4.4, RBC 4.31, Hgb 12.2, Hct 40.1, MCV 93.0, MCH 28.3, MCHC 30.4 L, RDW Std Deviation 46.9 H, RDW Coeff of Dany 13.8, Plt Count 149 L, MPV 11.4 05/26/20 04:25: Sodium 143, Potassium 4.2, Chloride 103, Carbon Dioxide 37.0 H, Anion Gap 3 L, BUN 49 H, Creatinine 0.80, Estim Creat Clear Calc 50.27, Est GFR (MDRD) Af Amer 90, Est GFR (MDRD) Non-Af 74, BUN/Creatinine Ratio 61.0 H, Glucose 397 H, Calcium 8.8, Total Bilirubin 0.40, AST 40 H, ALT 21, Alkaline Phosphatase 86, Total Protein 6.4, Albumin 1.7 L, Globulin 4.7 H, Albumin/Globulin Ratio 0.4 L 05/26/20 10:43: POC Glucose 405 H 05/26/20 14:20: POC Glucose 409 H 05/26/20 15:22: Specimen Type ART, Sample Site L Radial, pH 7.36, Bicarbonate Actual 38.1 H, Total CO2 40, Base Excess 13 H, O2 Saturation 82 L, O2 % 100, ABG pCO2 68.0 H*, ABG pO2 50 L, Nirav Test Positive, O2 Delivery Device Adult Vent, Vent Mode BiLevel Current Medications Acetaminophen (Acetaminophen 650 Mg/20 Ml Udc) 650 mg GT Q6H PRN PRN PRN Reason: TEMP > 100.5 F Last Admin: 05/24/20 20:09 Dose: 650 mg Documented by: Al Hydroxide/Mg Hydroxide (Mag Hydrox/Al Hydrox/Simeth 30 Ml Udc) 30 ml GT Q6H PRN PRN PRN Reason: Gastric Burning Albuterol Sulfate (Albuterol 2.5 Mg/3 Ml Vial.Neb.) 2.5 mg INHALATION Q2H PRN PRN PRN Reason: Dyspnea, wheezing Albuterol/Ipratropium (Ipratropium/Albuterol Sulfate 3 Ml Ampul.Neb) 3 ml INHALATION Q4HWA.RT [facility] Last Admin: 05/26/20 14:43 Dose: 3 ml Documented by: Aspirin (Aspirin 81 Mg Tab.Chew) 81 mg GT DAILY@0800 [facility] Last Admin: 05/26/20 10:46 Dose: 81 mg Documented by: Dexamethasone (Dexamethasone 4 Mg Tablet) 6 mg GT DAILY@0800 [facility] Stop: 05/29/20 08:01 Last Admin: 05/26/20 10:46 Dose: 6 mg Documented by: Enoxaparin Sodium (Enoxaparin 40 Mg/0.4 Ml Syringe) 40 mg SC BID [facility] Last Admin: 11/09/20 10:45 Dose: 40 mg Documented by: Furosemide (Furosemide 40 Mg/4 Ml Vial) 40 mg IV BID@1000,1800 [facility] Last Admin: 05/26/20 10:45 Dose: 40 mg Documented by: Sodium Chloride () 250 mls @ 15 mls/hr IV .[id number] PRN PRN Reason: Saline Flush Last Infusion: 05/26/20 09:20 Dose: Infused Documented by: Sodium Chloride () 250 mls @ 15 mls/hr IV .[id number] PRN PRN Reason: Additional IVPB Infusion Propofol (Diprivan) 1,000 mg in 100 mls @ 5.274 mls/hr CONT INF .Q12H [facility]; Protocol Last Titration: 05/26/20 15:00 Dose: 25 mcg/kg/min, 13.2 mls/hr Documented by: Fentanyl Citrate 1,000 mcg/ (Sodium Chloride) 100 mls @ 2.5 mls/hr CONT INF .Q40H [facility]; Protocol Last Titration: 05/26/20 15:00 Dose: 125 mcg/hr, 12.5 mls/hr Documented by: Norepinephrine Bitartrate 8 mg (/ Sodium Chloride) 250 mls @ 9.375 mls/hr CONT INF .[id number] [facility]; Protocol Last Titration: 05/26/20 15:00 Dose: 1 mcg/min, 1.9 mls/hr Documented by: Pantoprazole Sodium 40 mg/ (Sodium Chloride) 110 mls @ 330 mls/hr IV Q24 [facility] Last Infusion: 05/26/20 12:32 Dose: Infused Documented by: Enteral Nutritional Formula (Vital Af 1.2 Stanley Liquid) 1,000 mls @ 60 mls/hr GT .[id number] [facility] Last Admin: 05/26/20 11:00 Dose: 60 mls/hr Documented by: Fluconazole (Diflucan) 200 mg in 100 mls @ 100 mls/hr IV Q24 [facility] Last Infusion: 05/26/20 13:39 Dose: Infused Documented by: Amiodarone HCl 360 mg/ (Dextrose) 200 mls @ 16.667 mls/hr CONT INF .Q12H [facility] Last Infusion: 05/26/20 15:00 Dose: 0.5 mg/min, 16.7 mls/hr Documented by: Insulin Glargine (Insulin Glargine 100 Units/Ml Pen) 10 units SC BID [facility] Last Admin: 05/26/20 10:48 Dose: 10 u Documented by: Insulin Human Lispro (Insulin Lispro 100 Unit/Ml Insuln.Pen) 0 unit SC Q6 [facility]; Protocol Last Admin: 05/26/20 10:46 Dose: 14 units Documented by: Magnesium Hydroxide (Magnesium Hydroxide 30 Ml Udc) 30 ml GT DAILY PRN PRN PRN Reason: Constipation Miscellaneous Information (Inhaler, Assist Devices 1 Each Spacer) 1 each INHALATION PRN PRN PRN Reason: WITH AIRDUO MDI Polyethylene Glycol (Polyethylene Glycol 3350 17 Gm Packet) 17 gm PO DAILY PRN PRN PRN Reason: Constipation Senna/Docusate Sodium (Senna/Docusate Sodium 1 Tablet) 2 tablet GT BID [facility] Last Admin: 05/26/20 10:59 Dose: 2 tablet Documented by: Sodium Chloride (0.9% Saline Lock 10 Ml Syringe) 10 - 40 ml IV UD PRN PRN Reason: SALINE FLUSH Last Admin: 05/25/20 04:36 Dose: 30 ml Documented by: Sodium Chloride (Sodium Cl For Inhalation 15 Ml Vial.Neb.) 5 ml INHALATION Q5M PRN PRN Reason: Suctioning Throat Lozenges (Benzocaine/Menthol 1 Lozenge) 1 lozenge MUCOUS MEM Q2H PRN PRN PRN Reason: SORE THROAT Thyroid (Thyroid 60 Mg Tablet) 120 mg GT DAILY [facility] Last Admin: 05/26/20 10:46 Dose: 120 mg Documented by: Medical Necessity - Tobacco Use Smoking Status: Former smoker - Patient quit remotely but cannot give exact timeline, notes she smoked approximately 1 pack weekly but was unclear. Tobacco Use: Non-smoker Route of nutrition/ use of supplements: [] Nutritional Intake: [] IV Site: [] Kelly Catheter: [] - Assessment/Plan Antibiotics: [] Assessment/Plan: [] Active and Suspected Problems (Last Reviewed 03/30/18 @ 15:21 by Makenzie Avery) Acute hypoxemic respiratory failure due to COVID-19 (Acute) Sepsis (Acute) covid - On dex, lovenox 40mg bid. PCT was neg. Remains intubated. Pt started on remdesivir 05/21. Pt refused plasma. Sputum with some yeast, started on fluconazole. On pressors. Fever to 101.1. Other cxs neg. Will follow
[2020-05-26] MEDS: Insulin Lispro 100 UNIT/ML INSULN.PEN 40 UNIT SC (16:58)
[2020-05-26] MEDS: 0.9% Saline Lock 10 ML Syringe IV (17:15)
--- NOTE | 2020-05-26 17:31 | CPS ---
Critical ABG results given to at 1530 J.marah LIME KILN WORKER HELPER
[2020-05-26 19:46] LABS: Bedside Glucose 490 mg/dL (70-110)
--- NOTE | 2020-05-26 20:44 | NURSING ---
Spoke to pt's dtr Dimple, reviewed assessment and current vitals per request. Dimple questioned about pt receiving insulin, why is she getting it? We were not aware that you were giving insulin until today. She's not a diabetic. Explained to Dimple that the human body's natural insulin usage is much different when under this amount of stress. Pt does not have to be a diabetic to have higher blood sugars. Her physical response to the stress of being ill and receiving the steroid to aid in lung inflammation is causing her blood sugars to be high. Also explained that optimal healing occurs when blood sugars are within a particular range and we achieve that by administering insulin. Dimple denied having any other concerns or questions at this time.
[2020-05-26 23:21] LABS: Bedside Glucose 383 mg/dL (70-110)
--- NOTE | 2020-05-26 23:30 | NURSING ---
Pt's vent alarming, pt's RR high 30s, RT called in to room. Sedation increased to assist w/vent synchrony as per nrsg communication.
[2020-05-27] VITALS (28 sets, daily range): BP systolic 81–139; BP diastolic 42–78; PULSE 62–86; RESP 15–45; TEMP 36.9–37.5; O2SAT 60–84
--- NOTE | 2020-05-27 00:10 | NURSING ---
Cont to increase sedation as pt's RR remains mid-high 30s.
[2020-05-27] MEDS: Propofol 10MG/Ml 1,000 MG/100 ML Bottle 23.7 MG CONT INF ×4 (01:30→12:12)
[2020-05-27] MEDS: Amiodarone 360 MG in Dextrose 5% Viaflo Bag 192.8 ML 16.7 MG CONT INF (01:35)
[2020-05-27 05:01] LABS: Allen Test Positive; Base Excess 12 mmol/L (-2 to +2); Bicarbonate 36.9 mmol/L (22-26); Blood Gas Specimen Type ART; FI02 100; Mode BiLevel; O2 Delivery Device Adult Vent; PO2 53 mmHG (75-100); RR 12; SITE L Radial; SO2 84 % (95-99); Total Carbon Dioxide 39 mmol/L; pCO2 64.5 mmHg (35-45); pH 7.37 (7.35-7.45)
[2020-05-27] MEDS: 0.9% Saline Lock 10 ML Syringe IV (06:22)
[2020-05-27] MEDS: Insulin Lispro 100 UNIT/ML INSULN.PEN SC (06:26)
[2020-05-27 06:34] LABS: Absolute Lymphocyte Count 0.31 X10^3/uL (0.83-4.51); Basophil# 0.04 X10^3/uL; Basophil% 0.6 % (0-1); Differential Indicated SCAN CRITERIA MET; Eosinophil# 0.02 X10^3/uL; Eosinophils% 0.3 % (0-5); Hematocrit 41.6 % (37-47); Hemoglobin 12.5 g/dL (12.0-15.0); Lymphocyte # 0.31 X10^3/ul (4.0); Lymphocyte % 4.7 % (19-41); Mean Corpuscular Hgb 28.4 pg (27.0-32.0); Mean Corpuscular Volume 94.5 fL (81-99); Mean Platelet Vol. 11.2 fl (6.2-12.0); Monocyte% 1.5 % (0-10); NRBC Flagged by Analyzer 0.6 % (0-5); Neutrophil # 5.99 X10^3/uL (2.7-7.7); Neutrophil % 91.4 % (47-70); POSITIVE DIFFERENTIAL YES; POSITIVE MORPHOLOGY YES; Platelet Count 179 K/mm3 (150-450); RBC Distribution Width CV 14.1 % (11.6-14.6); RBC Distribution Width SD 49.2 fl (35.1-43.9); White Blood Count 6.6 K/mm3 (4.4-11.0)
[2020-05-27 06:52] LABS: Anion Gap 4 (5-15); BUN 72 mg/dL (7-18); BUN/Creat Ratio 77.1 RATIO (10-20); Calcium,Total 8.9 mg/dL (8.5-10.1); Chloride 102 mmol/L (98-107); Creatinine, Serum 0.93 mg/dL (0.55-1.02); EST Glomerular Filtration Rate 63 mL/min (>60); Est Glom Filt Rate - Afr Amer 76 mL/min (>60); Estimated Creatinine Clearance 43.25 ml/min; Glucose 413 mg/dL (74-106); Magnesium 2.6 mg/dL (1.6-2.6); Phosphorus 3.9 mg/dL (2.5-4.9); Potassium 3.6 mmol/L (3.5-5.1); Sodium Level 146 mmol/L (136-145)
[2020-05-27 07:04] LABS: Differential Comment SCANNED
[2020-05-27 07:15] LABS: Bedside Glucose 403 mg/dL (70-110)
--- NOTE | 2020-05-27 07:18 | RAD_ITS ---
STUDY: X-RAY CHEST REASON FOR EXAM: Female, 74 years old. HYPOXIA, COVID, RESP FAILURE TECHNIQUE: Single AP portable view of the chest. COMPARISON: Comparison is made with prior study dated 05/24/2020. FINDINGS: An endotracheal tube is in situ. The tip is at 2.2 cm proximal to the jac. An orogastric tube is seen with the tip below the left hemidiaphragm. EKG electrodes are seen. Since prior study, there has been improved aeration of the upper lobes. Residual bibasilar infiltrates are seen worse in the right lung base. There is no demonstrated pleural abnormality. Normal size heart. Normal mediastinum and hetal. Normal visualized pulmonary arteries. There is atherosclerotic calcification of the aortic arch with tortuosity. There are diffuse degenerative changes of the visualized thoracic spine. There is degenerative osteoarthritis of the bilateral shoulders. There is no demonstrated abnormality of the visualized soft tissue structures of the upper abdomen. RAD/Chest 1 View (Portable) IMPRESSION: Improvement in aeration of the upper lobes with residual infiltrates at the lung bases more prominent on the right side. Electronically Signed: Job Hernández, at 10:28 EST , Service support ,
--- NOTE | 2020-05-27 07:53 | PCM.PN.INT ---
Subjective: Patient with significant complications overnight. Patient was successfully transitioned to APRV yesterday, but saturations continue to be marginal to low. Patient desaturates with any movement into the 60s and otherwise tend to remain in the 80s. Patient did have to have her amnio drip held overnight secondary to wide-complex changes and hypotension. No fever has been noted. Family continues to be insistent on zinc, vitamin C and hydroxychloroquine despite communication of the most recent data on the effectiveness of these interventions. There was also questions about ECMO as a salvage therapy that have been answered over the last 24 hours. Family has convened yesterday and reportedly has transition back to full CODE STATUS. General: - - Intubated and sedated. Nonresponsive to voice. Does have a cough and gag reflex HEENT: Atraumatic, - - Proptosis noted. Oral: No Gingival or Mucosal Lesions/ Ulcerations, Dry Mucosa Neck: Supple, No Nodes, Trachea Midline Lungs: No rhonchi, No wheeze, No rales, Diminished - Poor air exchange Cardiovascular: Normal S1, Normal S2, No murmurs, Irregular Rate, No rub noted, No Gallop, - - Sinus rhythm with PACs on telemetry Abdomen: Hypoactive Bowel Sounds, Distended, Obese Extremities: No cyanosis, Diminished Peripheral Pulses, Edema Skin: - - No change compared to previous Musculoskeletal: No Tenderness to Palpation of Joints or Extremities Lymphatic: No Cervical, Supraclavicular, or Inguinal Adenopathy Neurological: - - Very little interaction from the patient. Cough and gag are noted. Patient does tend to posture with vent dyssynchrony. Psych/Mental Status: Flat Affect Vital Signs Temp Pulse Resp BP Pulse Ox 36.9 C 64 35 H 112/66 79 05/27/20 07:00 05/27/20 07:39 05/27/20 07:00 05/27/20 07:00 05/27/20 07:00 Oxygen Flow Rate (L/min) 100 Oxygen Delivery Method Mechanical Ventilator Weight: 88.1 kg Body Mass Index (BMI) 36.1 Intake and Output for Last 24 Hours 05/25/20 05/26/20 05/27/20 23:59 23:59 23:59 Intake Total 2147.55 / 2515.55 2341.08 / 2354.43 491.52 / 491.52 Output Total 2580 / 2715 3660 / 3660 390 / 390 Balance -432.45 / -199.45 -1318.92 / -1305.57 101.52 / 101.52 Labs (Last 48 Hours) 05/25/20 05/25/20 05/25/20 13:33 17:23 23:38 WBC RBC Hgb Hct MCV MCH MCHC RDW Std Deviation RDW Coeff of Dany Plt Count MPV Immature Gran % (Auto) Neut % (Auto) Lymph % (Auto) [place] % (Auto) Eos % (Auto) Baso % (Auto) Absolute Neuts (auto) Absolute Lymphs (auto) Nucleated RBC % Differential Comment Specimen Type Sample Site pH Bicarbonate Actual Total CO2 Base Excess O2 Saturation O2 % ABG pCO2 ABG pO2 Nirav Test Respiration Rate O2 Delivery Device Vent Mode Sodium Potassium Chloride Carbon Dioxide Anion Gap BUN Creatinine Estim Creat Clear Calc Est GFR (MDRD) Af Amer Est GFR (MDRD) Non-Af BUN/Creatinine Ratio Glucose Calcium Phosphorus Magnesium Total Bilirubin AST ALT Alkaline Phosphatase Total Protein Albumin Globulin Albumin/Globulin Ratio POC Glucose 406 H 416 H 367 H 05/26/20 05/26/20 05/26/20 04:25 04:25 10:43 WBC 4.4 RBC 4.31 Hgb 12.2 Hct 40.1 MCV 93.0 MCH 28.3 MCHC 30.4 L RDW Std Deviation 46.9 H RDW Coeff of Dany 13.8 Plt Count 149 L MPV 11.4 Immature Gran % (Auto) Neut % (Auto) Lymph % (Auto) [place] % (Auto) Eos % (Auto) Baso % (Auto) Absolute Neuts (auto) Absolute Lymphs (auto) Nucleated RBC % Differential Comment Specimen Type Sample Site pH Bicarbonate Actual Total CO2 Base Excess O2 Saturation O2 % ABG pCO2 ABG pO2 Nirav Test Respiration Rate O2 Delivery Device Vent Mode Sodium 143 Potassium 4.2 Chloride 103 Carbon Dioxide 37.0 H Anion Gap 3 L BUN 49 H Creatinine 0.80 Estim Creat Clear Calc 50.27 Est GFR (MDRD) Af Amer 90 Est GFR (MDRD) Non-Af 74 BUN/Creatinine Ratio 61.0 H Glucose 397 H Calcium 8.8 Phosphorus Magnesium Total Bilirubin 0.40 AST 40 H ALT 21 Alkaline Phosphatase 86 Total Protein 6.4 Albumin 1.7 L Globulin 4.7 H Albumin/Globulin Ratio 0.4 L POC Glucose 405 H 05/26/20 05/26/20 05/26/20 14:20 15:22 16:51 WBC RBC Hgb Hct MCV MCH MCHC RDW Std Deviation RDW Coeff of Dany Plt Count MPV Immature Gran % (Auto) Neut % (Auto) Lymph % (Auto) [place] % (Auto) Eos % (Auto) Baso % (Auto) Absolute Neuts (auto) Absolute Lymphs (auto) Nucleated RBC % Differential Comment Specimen Type ART Sample Site L Radial pH 7.36 Bicarbonate Actual 38.1 H Total CO2 40 Base Excess 13 H O2 Saturation 82 L O2 % 100 ABG pCO2 68.0 H* ABG pO2 50 L Nirav Test Positive Respiration Rate O2 Delivery Device Adult Vent Vent Mode BiLevel Sodium Potassium Chloride Carbon Dioxide Anion Gap BUN Creatinine Estim Creat Clear Calc Est GFR (MDRD) Af Amer Est GFR (MDRD) Non-Af BUN/Creatinine Ratio Glucose Calcium Phosphorus Magnesium Total Bilirubin AST ALT Alkaline Phosphatase Total Protein Albumin Globulin Albumin/Globulin Ratio POC Glucose 409 H 490 H* 05/26/20 05/27/20 05/27/20 23:02 04:57 06:20 WBC 6.6 RBC 4.40 Hgb 12.5 Hct 41.6 MCV 94.5 MCH 28.4 MCHC 30.0 L RDW Std Deviation 49.2 H RDW Coeff of Dany 14.1 Plt Count 179 MPV 11.2 Immature Gran % (Auto) 1.500 H Neut % (Auto) 91.4 H Lymph % (Auto) 4.7 L [place] % (Auto) 1.5 Eos % (Auto) 0.3 Baso % (Auto) 0.6 Absolute Neuts (auto) 6.0 Absolute Lymphs (auto) 0.31 L Nucleated RBC % 0.6 Differential Comment SCANNED Specimen Type ART Sample Site L Radial pH 7.37 Bicarbonate Actual 36.9 H Total CO2 39 Base Excess 12 H O2 Saturation 84 L O2 % 100 ABG pCO2 64.5 H ABG pO2 53 L Nirav Test Positive Respiration Rate 12 O2 Delivery Device Adult Vent Vent Mode BiLevel Sodium Potassium Chloride Carbon Dioxide Anion Gap BUN Creatinine Estim Creat Clear Calc Est GFR (MDRD) Af Amer Est GFR (MDRD) Non-Af BUN/Creatinine Ratio Glucose Calcium Phosphorus Magnesium Total Bilirubin AST ALT Alkaline Phosphatase Total Protein Albumin Globulin Albumin/Globulin Ratio POC Glucose 383 H 05/27/20 05/27/20 06:20 06:26 WBC RBC Hgb Hct MCV MCH MCHC RDW Std Deviation RDW Coeff of Dany Plt Count MPV Immature Gran % (Auto) Neut % (Auto) Lymph % (Auto) [place] % (Auto) Eos % (Auto) Baso % (Auto) Absolute Neuts (auto) Absolute Lymphs (auto) Nucleated RBC % Differential Comment Specimen Type Sample Site pH Bicarbonate Actual Total CO2 Base Excess O2 Saturation O2 % ABG pCO2 ABG pO2 Nirav Test Respiration Rate O2 Delivery Device Vent Mode Sodium 146 H Potassium 3.6 Chloride 102 Carbon Dioxide 40.0 H Anion Gap 4 L BUN 72 H Creatinine 0.93 Estim Creat Clear Calc 43.25 Est GFR (MDRD) Af Amer 76 Est GFR (MDRD) Non-Af 63 BUN/Creatinine Ratio 77.1 H Glucose 413 H Calcium 8.9 Phosphorus 3.9 Magnesium 2.6 Total Bilirubin AST ALT Alkaline Phosphatase Total Protein Albumin Globulin Albumin/Globulin Ratio POC Glucose 403 H Microbiology 05/24/20 08:40 Urine Catheter - Catheter Urine Culture - Final Culture exhibits no growth. 05/20/20 18:10 Blood Culture (Wb) - Right Forearm Blood Culture - Final No growth in 5 days. 05/20/20 17:55 Blood Culture (Wb) - Anticubital Right Blood Culture - Final No growth in 5 days. Medical Necessity - Tobacco Use Smoking Status: Former smoker - Patient quit remotely but cannot give exact timeline, notes she smoked approximately 1 pack weekly but was unclear. Tobacco Use: Non-smoker Assessment/Plan All Active Problems (Last Reviewed 03/30/18 @ 15:21 by Makenzie Avery) Acute hypoxemic respiratory failure due to COVID-19 (Acute) Sepsis (Acute) Hx of diverticulitis of colon (Acute) Shortness of breath (Acute) Chest pain (Acute) Closed right ankle fracture (Acute) Acute respiratory failure with hypoxemia (Resolved) Hypokalemia (Resolved) RECOMMENDATIONS: 1. Continue current supportive measures with invasive mechanical ventilatory support and wean FiO2 and PEEP to maintain saturations at or above 90%. 2. Continue remdesivir and Decadron to complete treatment courses. Continue bronchodilator therapy 3. Continue Levophed and wean to maintain a mean arterial pressure at or above 65 mmHg. 4. No plans to add zinc, vitamin C or hydroxychloroquine 5. Continue tube feeds as tolerated. 6. Continue Protonix and Lovenox for ICU prophylaxis. 7. Too unstable to transport for advanced diagnostics. Obtain portable chest x-ray 8. Continue fluconazole per ID recommendations. IMPRESSIONS: 1. Acute combined respiratory failure secondary to COVID-19 pneumonia The patient presented to the hospital with Covid pneumonia and subsequently decompensated from a respiratory perspective requiring intubation. Prior to being intubated, the patient refused convalescent plasma. Therefore, would plan to continue current supportive measures including remdesivir and Decadron as ordered. Patient with ARDS physiology with extensive shunting noted. Patient appears to be terminal from my perspective despite multiple attempts at optimization of respiratory status. Do not believe patient would survive any transport at this time. Transition APRV did not change oxygenation status significantly. P high is close to the limit that is routinely acceptable. Further increases may likely lead to complications such as pneumothorax. 2. Distributive shock Likely multifactorial with a component of septic shock coupled with hemodynamic compromise induced by sedative medication use. 3. Self-reported history of COPD of unknown severity/history of provoked VTE Given that the patient has a self-reported history of COPD of unknown severity, she will be continued on bronchodilator therapy. CTA chest obtained on admission showed no evidence for pulmonary embolism. Therefore, continue DVT prophylaxis with Lovenox. 4. New onset atrial fibrillation with RVR Continue current supportive measures. Amiodarone drip has been discontinued. Electrolytes are within normal limits. 5. History of hypertension/hyperlipidemia/hypothyroidism/GERD/prior tobacco dependency Complicates care, management, recovery and prognosis. Hold home antihypertensives. Continue appropriate GI prophylaxis. Continue Synthroid. Low clinical suspicion the patient will survive any CPR to a reasonable recovery. Patient with significant hyperglycemia, likely secondary to steroids. Lantus and Levemir will continue to be added. TIME: 62 minutes of critical care time, independent of procedures, was spent addressing the patient's acute combined respiratory failure secondary to COVID-19 pneumonia, distributive shock, COPD, atrial fibrillation with RVR, review of all data and collaboration with the care team. (6:30 AM to 8 AM) 9xxxx: [id number] Critical care first hour
[2020-05-27] MEDS: Insulin Lispro 100 UNIT/ML INSULN.PEN 40 UNIT SC (07:57)
[2020-05-27] MEDS: Senna/Docusate Sodium 1 Tablet 2 TABLET GT (10:24)
[2020-05-27] MEDS: Aspirin 81 MG TAB.CHEW GT (10:25)
[2020-05-27] MEDS: Thyroid 60 MG Tablet 120 MG GT (10:25)
[2020-05-27] MEDS: dexAMETHasone 4 MG Tablet 6 MG GT (10:25)
[2020-05-27] MEDS: Enoxaparin 40 MG/0.4 ML Syringe SC (10:26)
[2020-05-27] MEDS: Furosemide 40 MG/4 ML Vial IV (10:26)
--- NOTE | 2020-05-27 11:35 | CASEMGMT ---
Social Work Followed up with patient's daughters' - spoke together via 3-way conference call. Both report doing okay, but not really okay. Validated feelings. Understandable as they are having hope and praying for a miracle. Both provided high praises for Dr. Garcia's care for their mother. That reassures them both that he is doing everything he can to care for pt, and he believes in God and knows He can intervene at any time. Dr. Gracia offered to speak with a family friend that is a whom treats COVID patients. Received phone number, name and availability for him to contact. Information relayed to Dr. Garcia. Both dtr's very appreciative of the care and Team work given to pt thus far. SW provided emotional and verbal support. Offered to contact SW if anything else is need and will continue to follow up. Both appreciative. No other concerns/questions noted. Julia Anguiano, JOB SPOTTER MAGISTRATE JUDGE
--- NOTE | 2020-05-27 12:04 | CASEMGMT ---
JETT called ICU and spoke with RHIANNON Lucero. JETT let him know the physician family talked about having Dr Jones talk with is Dr Naik and her phone number is [phone]. Dr Garcia can call anytime after 1p. Jazzy BOWER DATABASE PROGRAMMER ANALYST
--- NOTE | 2020-05-27 13:15 | NURSING ---
Daughter Dimple notified of decreasing SpO2 and lack of response to painful stimuli. On her way in
--- NOTE | 2020-05-27 14:00 | NURSING ---
Fidel Pinto at bedside, requesting patient be terminally extubated. All medications shut off and ET and OG removed.
--- NOTE | 2020-05-27 14:31 | NURSING ---
No pulse or respirations noted on monitor. No carotid pulse palpated. No breath sounds or apical pulse auscultated. Family at bedside informed.
--- NOTE | 2020-05-27 14:39 | PCM.PROGNOTE ---
Patient Problems: Active and Suspected Problems (Last Reviewed 03/30/18 @ 15:21 by Makenzie Avery) Acute hypoxemic respiratory failure due to COVID-19 (Acute) Sepsis (Acute) Subjective: Patient was seen and examined earlier this morning, she remained on high PEEP settings and 100% FiO2, no overall change in her medical status was noted as compared with yesterday. Objective: General: No apparent distress, Well developed, patient is sedated on the ventilator HEENT: Atraumatic, PERRLA, Normocephalic Oral: Moist Mucosa Neck: No JVD, Trachea Midline, Thyroid Normal Size and Texture Lungs: Normal air movement, Rhonchi - Expiratory rhonchi are scattered bilaterally Cardiovascular: Regular rate, Regular Rhythm, Normal S1, Normal S2, No murmurs, PMI Normal, No rub noted Abdomen: Bowel Sounds Present, Soft, Non Tender, Non-Distended, No hernias noted Extremities: No clubbing, No cyanosis, No edema, Capillary Refill Less than 3 Seconds Skin: No rashes, No breakdown Musculoskeletal: No joint swelling is noted Neurological: Cranial nerves II-XII grossly intact Psych/Mental Status: Patient is sedated and on the ventilator - Physical Exam Vitals/I&O's: Vital Signs Temp Pulse Resp BP Pulse Ox 99.5 F H 79 28 H 101/56 L 60 05/27/20 12:00 05/27/20 12:00 05/27/20 12:00 05/27/20 12:00 05/27/20 12:00 Oxygen Flow Rate (L/min) 100 Oxygen Delivery Method Mechanical Ventilator Weight: 88.1 kg Body Mass Index (BMI) 36.1 Intake and Output for Last 24 Hours 05/25/20 05/26/20 05/27/20 23:59 23:59 23:59 Intake Total 2147.55 / 2515.55 2341.08 / 2354.43 1281.21 / 1281.21 Output Total 2580 / 2715 3660 / 3660 740 / 740 Balance -432.45 / -199.45 -1318.92 / -1305.57 541.21 / 541.21 Microbiology Past 72 Hours 05/24/20 08:40 Urine Catheter - Catheter Urine Culture - Final Culture exhibits no growth. 05/20/20 18:10 Blood Culture (Wb) - Right Forearm Blood Culture - Final No growth in 5 days. 05/20/20 17:55 Blood Culture (Wb) - Anticubital Right Blood Culture - Final No growth in 5 days. Laboratory Results 05/26/20 15:22: Specimen Type ART, Sample Site L Radial, pH 7.36, Bicarbonate Actual 38.1 H, Total CO2 40, Base Excess 13 H, O2 Saturation 82 L, O2 % 100, ABG pCO2 68.0 H*, ABG pO2 50 L, Nirav Test Positive, O2 Delivery Device Adult Vent, Vent Mode BiLevel 05/26/20 16:51: POC Glucose 490 H* 05/26/20 23:02: POC Glucose 383 H 05/27/20 04:57: Specimen Type ART, Sample Site L Radial, pH 7.37, Bicarbonate Actual 36.9 H, Total CO2 39, Base Excess 12 H, O2 Saturation 84 L, O2 % 100, ABG pCO2 64.5 H, ABG pO2 53 L, Nirav Test Positive, Respiration Rate 12, O2 Delivery Device Adult Vent, Vent Mode BiLevel 05/27/20 06:20: WBC 6.6, RBC 4.40, Hgb 12.5, Hct 41.6, MCV 94.5, MCH 28.4, MCHC 30.0 L, RDW Std Deviation 49.2 H, RDW Coeff of Dany 14.1, Plt Count 179, MPV 11.2, Immature Gran % (Auto) 1.500 H, Neut % (Auto) 91.4 H, Lymph % (Auto) 4.7 L, [place] % (Auto) 1.5, Eos % (Auto) 0.3, Baso % (Auto) 0.6, Absolute Neuts (auto) 6.0, Absolute Lymphs (auto) 0.31 L, Nucleated RBC % 0.6, Differential Comment SCANNED 05/27/20 06:20: Sodium 146 H, Potassium 3.6, Chloride 102, Carbon Dioxide 40.0 H, Anion Gap 4 L, BUN 72 H, Creatinine 0.93, Estim Creat Clear Calc 43.25, Est GFR (MDRD) Af Amer 76, Est GFR (MDRD) Non-Af 63, BUN/Creatinine Ratio 77.1 H, Glucose 413 H, Calcium 8.9, Phosphorus 3.9, Magnesium 2.6 11/10/20 06:26: POC Glucose 403 H Current Medications Acetaminophen (Acetaminophen 650 Mg/20 Ml Udc) 650 mg GT Q6H PRN PRN PRN Reason: TEMP > 100.5 F Last Admin: 05/24/20 20:09 Dose: 650 mg Documented by: Al Hydroxide/Mg Hydroxide (Mag Hydrox/Al Hydrox/Simeth 30 Ml Udc) 30 ml GT Q6H PRN PRN PRN Reason: Gastric Burning Albuterol Sulfate (Albuterol 2.5 Mg/3 Ml Vial.Neb.) 2.5 mg INHALATION Q2H PRN PRN PRN Reason: Dyspnea, wheezing Aspirin (Aspirin 81 Mg Tab.Chew) 81 mg GT DAILY@0800 [facility], [facility] Last Admin: 05/27/20 10:25 Dose: 81 mg Documented by: Dexamethasone (Dexamethasone 4 Mg Tablet) 6 mg GT DAILY@0800 [facility], [facility]1983 Stop: 05/29/20 08:01 Last Admin: 05/27/20 10:25 Dose: 6 mg Documented by: Enoxaparin Sodium (Enoxaparin 40 Mg/0.4 Ml Syringe) 40 mg SC BID [facility], [facility] Last Admin: 05/27/20 10:26 Dose: 40 mg Documented by: Furosemide (Furosemide 40 Mg/4 Ml Vial) 40 mg IV BID@1000,1800 [facility], [facility] Last Admin: 05/27/20 10:26 Dose: 40 mg Documented by: Sodium Chloride () 250 mls @ 15 mls/hr IV .[id number] PRN PRN Reason: Saline Flush Last Infusion: 05/26/20 09:20 Dose: Infused Documented by: Sodium Chloride () 250 mls @ 15 mls/hr IV .[id number] PRN PRN Reason: Additional IVPB Infusion Propofol (Diprivan) 1,000 mg in 100 mls @ 5.274 mls/hr CONT INF .Q12H [facility], [facility]; Protocol Last Admin: 05/27/20 12:12 Dose: 45 mcg/kg/min, 23.7 mls/hr Documented by: Fentanyl Citrate 1,000 mcg/ (Sodium Chloride) 100 mls @ 2.5 mls/hr CONT INF .Q40H BRITTANY; Protocol Last Admin: 05/27/20 11:15 Dose: 150 mcg/hr, 15 mls/hr Documented by: Norepinephrine Bitartrate 8 mg (/ Sodium Chloride) 250 mls @ 9.375 mls/hr CONT INF .[id number] BRITTANY; Protocol Last Titration: 05/27/20 11:00 Dose: 2 mcg/min, 3.8 mls/hr Documented by: Pantoprazole Sodium 40 mg/ (Sodium Chloride) 110 mls @ 330 mls/hr IV Q24 BRITTANY Last Infusion: 05/27/20 12:48 Dose: Infused Documented by: Enteral Nutritional Formula (Vital Af 1.2 Stanley Liquid) 1,000 mls @ 60 mls/hr GT .[id number] BRITTANY Last Admin: 05/27/20 11:48 Dose: Not Given Documented by: Fluconazole (Diflucan) 200 mg in 100 mls @ 100 mls/hr IV Q24 BRITTANY Last Infusion: 05/27/20 11:46 Dose: Infused Documented by: Amiodarone HCl 360 mg/ (Dextrose) 200 mls @ 16.667 mls/hr CONT INF .Q12H BRITTANY Last Infusion: 05/27/20 06:45 Dose: 0 mg/min, 0 mls/hr Documented by: Insulin Glargine (Insulin Glargine 100 Units/Ml Pen) 50 units SC BID BRITTANY Last Admin: 05/27/20 10:25 Dose: 50 u Documented by: Insulin Human Lispro (Insulin Lispro 100 Unit/Ml Insuln.Pen) 0 unit SC Q6 [facility], [facility]; Protocol Last Admin: 05/27/20 06:26 Dose: 14 units Documented by: Magnesium Hydroxide (Magnesium Hydroxide 30 Ml Udc) 30 ml GT DAILY PRN PRN PRN Reason: Constipation Miscellaneous Information (Inhaler, Assist Devices 1 Each Spacer) 1 each INHALATION PRN PRN PRN Reason: WITH AIRDUO MDI Polyethylene Glycol (Polyethylene Glycol 3350 17 Gm Packet) 17 gm GT DAILY PRN PRN PRN Reason: Constipation Senna/Docusate Sodium (Senna/Docusate Sodium 1 Tablet) 2 tablet GT BID BRITTANY Last Admin: 05/27/20 10:24 Dose: 2 tablet Documented by: Sodium Chloride (0.9% Saline Lock 10 Ml Syringe) 10 - 40 ml IV UD PRN PRN Reason: SALINE FLUSH Last Admin: 05/27/20 06:22 Dose: 30 ml Documented by: Sodium Chloride (Sodium Cl For Inhalation 15 Ml Vial.Neb.) 5 ml INHALATION Q5M PRN PRN Reason: Suctioning Throat Lozenges (Benzocaine/Menthol 1 Lozenge) 1 lozenge MUCOUS MEM Q2H PRN PRN PRN Reason: SORE THROAT Thyroid (Thyroid 60 Mg Tablet) 120 mg GT DAILY BRITTANY Last Admin: 05/27/20 10:25 Dose: 120 mg Documented by: Medical Necessity - Tobacco Use Smoking Status: Former smoker - Patient quit remotely but cannot give exact timeline, notes she smoked approximately 1 pack weekly but was unclear. Tobacco Use: Non-smoker Assessment/Plan All Active Problems (Last Reviewed 03/30/18 @ 15:21 by Makenzie Avery) Acute hypoxemic respiratory failure due to COVID-19 (Acute) Sepsis (Acute) Hx of diverticulitis of colon (Acute) Shortness of breath (Acute) Chest pain (Acute) Closed right ankle fracture (Acute) Acute respiratory failure with hypoxemia (Resolved) Hypokalemia (Resolved) #1 acute on chronic hypoxemic respiratory failure secondary to Covid 19 pneumonia-patient remains on the ventilator at high PEEP settings, critical care will discuss ongoing care with family today, prognosis is grim #2 COVID-19 pneumonia-infectious diseases is seeing the patient, she will remain on medications per infectious diseases #3 septic shock-patient is currently on pressor agent #4 asthma-chronic #5 essential hypertension #6 hyperlipidemia #7 elevated glucose secondary to corticosteroid administration It now appears the patient may have had supplemental oxygen at home.
--- NOTE | 2020-05-27 14:42 | PCM.DEATH ---
Preliminary Cause of Acute on chronic hypoxic respiratory failure from COVID-19 pneumonia Date of Admission: 05/20/20 - Principle Diagnosis #1 acute on chronic respiratory failure secondary to COVID-19 pneumonia #2 COVID-19 pneumonia #3 septic shock secondary to COVID-19 pneumonia #4 chronic asthma #5 essential hypertension #6 hyperlipidemia #7 severe protein and caloric malnutrition Problem List: Active and Suspected Problems (Last Reviewed 03/30/18 @ 15:21 by Makenzie Avery) Acute hypoxemic respiratory failure due to COVID-19 (Acute) Sepsis (Acute) Hospital Course This 74-year-old white female was seen in the emergency room at [facility] with complaints of increasing shortness of breath since 1 week ago. Patient had a Covid test done last week of April and it resulted on 05/19/2020 is being positive. On evaluation, patient was noted to be 85% on room air, she told the emergency room physician that she did not want to be placed on BiPAP or intubated. Patient's chest x-ray showed bilateral infiltrates, patient's white blood cell count was normal. Patient was admitted initially to PCU, she was placed on IV Zithromax and Rocephin-this was stopped by infectious diseases and she was placed on dexamethasone, remdesivir, and given convalescent plasma. Patient was seen in consultation by pulmonary medicine also, her respiratory status declined while she was on PCU and she had discussions with her family members who urged her to reverse her no CODE STATUS which she did, patient then had to be intubated due to increasing respiratory distress and she was transferred to ICU. Patient's blood pressure was low and she was placed on pressor agents. Patient required increasing amounts of PEEP and oxygen to maintain her pulse ox. Family reversed her DNR status and made her DNR CC arrest with intubation, patient's status however declined further and on 05/27/2020, patient's family decided that she should be extubated terminally. She was terminally extubated on that date and at 1431 on 05/27/2020. Cause of was acute on chronic hypoxic respiratory failure secondary to COVID-19 pneumonia with an overlie of septic shock from same. Inpatient E&M: [id number] [facility]
== END 2020-05-27 15:00 | DRG 870 ==
LOC: ED 20:02 → PCU 05-21 02:12 → ICU 05-22 00:53
PROVIDERS: Internal Medicine Critical Care Medicine; Internal Medicine Infectious Disease; Admitting Provider Family Medicine; Emergency Provider Emergency Medicine; PCP Family Medicine; Visit Provider Internal Medicine
DX: A41.89 Other specified sepsis (principal); U07.1 COVID-19; J12.89 Other viral pneumonia; R65.21 Severe sepsis with septic shock; J96.21 Acute and chronic respiratory failure with hypoxia; E43 Unspecified severe protein-calorie malnutrition; I48.92 Unspecified atrial flutter; I51.81 Takotsubo syndrome; R57.8 Other shock; E03.9 Hypothyroidism, unspecified; I10 Essential (primary) hypertension; K21.9 Gastro-esophageal reflux disease without esophagitis; I48.91 Unspecified atrial fibrillation; E78.5 Hyperlipidemia, unspecified; Z87.891 Personal history of nicotine dependence; Z66 Do not resuscitate; Z86.718 Personal history of other venous thrombosis and embolism; Z82.49 Family history of ischemic heart disease and other diseases of the circulatory system; Z82.5 Family history of asthma and other chronic lower respiratory diseases; Z83.3 Family history of diabetes mellitus; Z86.711 Personal history of pulmonary embolism; Z90.49 Acquired absence of other specified parts of digestive tract; Z90.710 Acquired absence of both cervix and uterus; Z96.653 Presence of artificial knee joint, bilateral; R73.9 Hyperglycemia, unspecified; T38.0X5A Adverse effect of glucocorticoids and synthetic analogues, initial encounter; E66.9 Obesity, unspecified; Z68.36 Body mass index [BMI] 36.0-36.9, adult; J47.9 Bronchiectasis, uncomplicated; J43.9 Emphysema, unspecified
CPT/HCPCS: 31500; 31720; 36415; 36600; 71045; 71275; 80048; 80053; 82550; 82728; 82803; 82962; 83605; 83615; 83735; 83880; 84100; 84145; 84439; 84443; 84478; 84484; 85025; 85027; 85379; 85384; 86140; 86900; 86901; 87040; 87070; 87086; 87205; 87449; 87633; 93005; 94002; 94003; 94640; 94660; 94762; 97162; 97166; 97802; 99251; 99285; J7030; J7040; J7050; Q9967; A4216; C1751; G0463; J1940; J2405; J3010